=== PATIENT | male | born 1950 | race Caucasian/White ===

== ENCOUNTER 2020-10-10 08:59 | Outpatient (CLI) | payer MEDICARE, SELFPAY | END 2020-10-10 09:00 | disposition home or self-care (01) | DX: Z23 Encounter for immunization (principal) | CPT/HCPCS: 0001A; 91300 ==

== ENCOUNTER 2020-10-31 09:01 | Outpatient (CLI) | payer MEDICARE, SELFPAY | END 2020-10-31 09:02 | disposition home or self-care (01) | LOC: ANHCOVIDVC 09:02 | DX: Z23 Encounter for immunization (principal) | CPT/HCPCS: 0002A; 91300 ==

== ENCOUNTER 2021-09-27 02:17 | Day surgery (SDC) | payer MEDICARE, SELFPAY ==
[2021-09-25 11:51] VITALS: BMI 24.3
[2021-09-27 13:24] VITALS: BP 150/72; PULSE 56; RESP 18; TEMP 37.1; O2SAT 99
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
[2021-09-27] MEDS: LACTATED RINGERS 1,000 ML 150 ML IV CONT (13:34)
--- NOTE | 2021-09-27 13:41 | P.PNAN_ITS ---
Anes - Initial Pre Proc Eval Procedure: Operation Date: 09/27/21 14:00 Proposed Procedures p Esophagogastroduodenoscopy - Leoncio Swartz MD Date/Time: 09/27/21 13:41 Surgeon: Leoncio Swartz MD Pre Op Diagnosis: dysphagia Patient Data Age: 71 Gender: M Height: 1.78 m Weight: 83 kg Last Vital Signs Temp 98.8 F 09/27/21 13:24 Pulse 56 L 09/27/21 13:24 Resp 18 09/27/21 13:24 BP 150/72 H 09/27/21 13:24 Pulse Ox 99 09/27/21 13:24 Allergies Allergy/AdvReac Type Severity Reaction Status Date / Time ximena Allergy Severe Swelling Verified 09/27/21 13:23 of Lip/Tongue/Throat poison enedelia extract Allergy Intermediate Blister Verified 09/27/21 13:23 Home Medications Medication Instructions Recorded Confirmed Type Daily Multiple For Men 1 tab-cap PO DAILY 09/25/21 09/25/21 History acetaminophen [Tylenol] 650 mg PO BID 09/25/21 09/25/21 History amlodipine 5 mg PO BID 09/25/21 09/25/21 History ascorbic acid (vitamin C) 500 mg PO BID 09/25/21 09/25/21 History calcium carbonate-vitamin D3 1 tablet PO DAILY 09/25/21 09/25/21 History [Calcium with Vitamin D] cyanocobalamin (vitamin B-12) 1,000 mcg PO BID 09/25/21 09/25/21 History [Vitamin B-12] magnesium 500 mg PO BID 09/25/21 09/25/21 History saw palmetto 3 cap PO DAILY 09/25/21 09/25/21 History testosterone cypionate 100 mg IM [id number] 09/25/21 09/25/21 History Patient hx anesthesia problems: none Family hx anesthesia problems: none Results Review: All pre-operative results and documents have been reviewed as part of the pre-operative evaluation. [facility] Social History Social History Smoking status: Never smoker Alcohol intake: current Substance use: never Substance use type: does not use Living arrangements: with family Spiritual care concerns: No Anes - Eval Final PreProcedure Day of Procedure 09/27/21 13:41 Patient weight: normal Heart: regular rate and rhythm Lungs: clear to auscultation Airway: Mallampati scale class II Neurological: alert and oriented Last oral intake: >/= 8 hours ASA classification: II Emergent: no Anesthetic plan: proceed Anesthesia type and monitoring: general GIVS and standard monitoring Results Review: All pre-operative results and documents have been reviewed as part of the pre-operative evaluation. Informed Consent: The patient's anesthetic plan and its attendant risks and benefits were discussed with the patient/family/POA. Questions were solicited and answers provided to the satisfaction of the patient/family/POA.
--- NOTE | 2021-09-27 14:02 | SUR.OPER ---
Esophageal Balloon 15-18mm Lot: [id number] Exp: 2023-05-04
[2021-09-27 14:07] VITALS: BP 108/77; PULSE 65; RESP 19; O2SAT 98
[2021-09-27 14:17] VITALS: BP 102/79; PULSE 65; RESP 23; O2SAT 100
[2021-09-27 14:27] VITALS: BP 126/82; PULSE 59; RESP 20; O2SAT 100
== END 2021-09-27 14:48 | disposition home or self-care (01) ==
PROVIDERS: PCP Family Medicine; Visit Provider Internal Medicine Gastroenterology
PROC: 0DJ08ZZ Inspection of Upper Intestinal Tract, Via Natural or Artificial Opening Endoscopic (ICD-10-PCS; CPT 43235; principal; 2021-09-27 14:00)
DX: K22.2 Esophageal obstruction (principal); K21.00 Gastro-esophageal reflux disease with esophagitis, without bleeding; K44.9 Diaphragmatic hernia without obstruction or gangrene
CPT/HCPCS: 43249; 88305; C1726; J2704; J7120

== ENCOUNTER 2021-10-05 14:44 | Outpatient (CLI) | payer OTHER, MEDICARE, SELFPAY ==
--- NOTE | ~2021-10-05 | XR_ITS ---
EXAMINATION: XR cervical spine 4-5V DATE: 10/05/2021 15:12 INDICATION: Neck pain. TECHNIQUE: 4 views of cervical spine were obtained. COMPARISON: None. FINDINGS: There is kyphosis of cervical spine. There is 2 mm retrolisthesis of C3 on C4, C4 on C5, an d C5 on C6. There is 16 degrees levoscoliosis of cervicothoracic spine. Vertebral body heights are no rmal. There is severely decreased disc height from C3-C4 through C6-C7. There is multilevel uncoverte bral joint osteoarthritis, severe on the right at C3-C4 and C4-C5 and bilaterally at C5-C6 and C6-C7. There is multilevel mild facet joint osteoarthritis. There is mild central canal stenosis at C3-C4, C4-C5, C5-C6, and C6-C7. No prevertebral soft tissue swelling. IMPRESSION: 1. Severe cervical spondylosis. 2. Cervicothoracic levoscoliosis. Reviewed, dictated and finalized at location A.
--- NOTE | ~2021-10-05 | XR_ITS ---
EXAMINATION: XR thoracic spine 3V DATE: 10/05/2021 15:12 INDICATION: Back pain. TECHNIQUE: 3 views of thoracic spine were obtained. COMPARISON: None. FINDINGS: There is 11 degrees dextroscoliosis of thoracic spine. Vertebral body heights are normal. I ntervertebral disc heights are normal. There are endplate osteophytes at most levels. IMPRESSION: 1. Mild thoracic spondylosis. 2. Thoracic dextroscoliosis. Reviewed, dictated and finalized at location A.
--- NOTE | ~2021-10-05 | CT_ITS ---
EXAMINATION: CT cervical spine wo con DATE: 10/05/2021 15:18 INDICATION: Neck pain. TECHNIQUE: Computed tomography (CT) of the cervical spine was performed without intravenous contrast. Automated exposure control and iterative reconstruction technique were employed. The dose-length pro duct was 415.07 mGy-cm. COMPARISON: None FINDINGS: There are nodules in the thyroid measuring up to 10 mm, likely not clinically significant. There is 6 degrees levocurvature of cervical spine. There is kyphosis of cervical spine. There is 2 m m retrolisthesis of C4 on C5 and C5-C6 and 2 mm anterolisthesis of C7 on T1. Vertebral body heights a re normal. There is severely decreased disc height from C3-C4 through C6-C7 with endplate remodeling. The following disc levels are specifically discussed: C2-C3: There is mild bilateral uncovertebral joint osteoarthritis. There is moderate right and severe left facet joint osteoarthritis. There is mild left neural foraminal stenosis. There is no central c anal stenosis. C3-C4: There is severe right and moderate left uncovertebral joint osteoarthritis. There is mild bila teral facet joint osteoarthritis. There is moderate right and mild left neural foraminal stenosis. Th ere is mild central canal stenosis. C4-C5: There is severe right and moderate left uncovertebral joint osteoarthritis. There is mild bila teral facet joint osteoarthritis. There is moderate right and mild left neural foraminal stenosis. Th ere is moderate central canal stenosis. C5-C6: There is severe bilateral uncovertebral joint osteoarthritis. There is moderate bilateral face t joint osteoarthritis. There is mild bilateral neural foraminal stenosis. There is moderate central canal stenosis. C6-C7: There is severe bilateral uncovertebral joint osteoarthritis. There is severe bilateral facet joint osteoarthritis. There is mild bilateral neural foraminal stenosis. There is mild central canal stenosis. C7-T1: There is no uncovertebral joint osteoarthritis. There is severe bilateral facet joint osteoart hritis. There is mild bilateral neural foraminal stenosis. There is no central canal stenosis. IMPRESSION: 1. Severe cervical spondylosis. Reviewed, dictated and finalized at location A.
== END 2021-10-05 14:45 | disposition home or self-care (01) ==
PROVIDERS: PCP Family Medicine; Visit Provider Nurse Practitioner Adult Health
DX: M47.892 Other spondylosis, cervical region (principal); M47.894 Other spondylosis, thoracic region
CPT/HCPCS: 72050; 72072; 72125

== ENCOUNTER 2021-12-27 00:41 | Day surgery (SDC) | payer MEDICARE, SELFPAY ==
[2021-12-10 14:12] VITALS: BMI 23.8
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
[2021-12-27 07:06] VITALS: BP 165/75; PULSE 85; RESP 20; TEMP 36.2; O2SAT 99; BMI 25.7
[2021-12-27] MEDS: LACTATED RINGERS 1,000 ML 150 ML IV CONT (07:09)
--- NOTE | 2021-12-27 07:50 | P.PNAN_ITS ---
Anes - Initial Pre Proc Eval Procedure: Operation Date: 12/27/21 08:00 Proposed Procedures p Esophagogastroduodenoscopy - eLoncio Swartz MD Date/Time: 12/27/21 07:50 Surgeon: Leoncio Swartz MD Pre Op Diagnosis: dysphagia Patient Data Age: 71 Gender: M Height: 1.75 m Weight: 79.2 kg Last Vital Signs Temp 97.2 F L 12/27/21 07:06 Pulse 85 12/27/21 07:06 Resp 20 12/27/21 07:06 BP 165/75 H 12/27/21 07:06 Pulse Ox 99 12/27/21 07:06 O2 Del Method Room Air 12/27/21 07:06 Allergies Allergy/AdvReac Type Severity Reaction Status Date / Time ximena Allergy Severe Swelling Verified 12/27/21 07:01 of Lip/Tongue/Throat poison enedelia extract Allergy Intermediate Blister Verified 12/27/21 07:01 Home Medications Medication Instructions Recorded Confirmed Type Daily Multiple For Men 1 tab-cap PO DAILY 09/25/21 12/10/21 History ascorbic acid (vitamin C) 500 mg 500 mg PO BID 09/25/21 12/10/21 History capsule calcium carbonate 600 mg-vitamin 1 tablet PO DAILY 09/25/21 12/10/21 History D3 10 mcg (400 unit) tablet (Calcium with Vitamin D) cyanocobalamin (vitamin B-12) 1,000 mcg PO BID 09/25/21 12/10/21 History 1,000 mcg tablet (Vitamin B-12) magnesium 500 mg tablet 500 mg PO BID 09/25/21 12/10/21 History pantoprazole 40 mg tablet,delayed 40 mg PO QAM #30 tabs 09/27/21 12/10/21 Rx release Patient hx anesthesia problems: none Family hx anesthesia problems: none Results Review: All pre-operative results and documents have been reviewed as part of the pre-operative evaluation. [facility] Social History Social History Smoking status: Never smoker Alcohol intake: former Substance use: never Substance use type: does not use Living arrangements: with family Spiritual care concerns: No Anes - Eval Final PreProcedure Day of Procedure 12/27/21 07:50 Patient weight: normal Heart: regular rate and rhythm Lungs: clear to auscultation Airway: Mallampati scale class II Neurological: alert and oriented Last oral intake: >/= 8 hours ASA classification: II Emergent: no Anesthetic plan: proceed Anesthesia type and monitoring: general GIVS and standard monitoring Results Review: All pre-operative results and documents have been reviewed as part of the pre- operative evaluation. Informed Consent: The patient's anesthetic plan and its attendant risks and benefits were discussed with the patient/family/POA. Questions were solicited and answers provided to the satisfaction of the patient/family/POA.
[2021-12-27 08:03] VITALS: BP 101/72; PULSE 63; RESP 16; O2SAT 100
[2021-12-27 08:13] VITALS: BP 101/56; PULSE 59; RESP 18; O2SAT 97
[2021-12-27 08:23] VITALS: BP 101/66; PULSE 61; RESP 16; O2SAT 97
== END 2021-12-27 08:58 | disposition home or self-care (01) ==
PROVIDERS: PCP Family Medicine; Visit Provider Internal Medicine Gastroenterology
PROC: 0DJ08ZZ Inspection of Upper Intestinal Tract, Via Natural or Artificial Opening Endoscopic (ICD-10-PCS; CPT 43235; principal; 2021-12-27 08:00)
DX: K22.2 Esophageal obstruction (principal); K44.9 Diaphragmatic hernia without obstruction or gangrene
CPT/HCPCS: 43249; J2001; J2704; J7120

== ENCOUNTER 2022-03-19 10:16 | Outpatient (CLI) | payer MEDICARE, SELFPAY ==
--- NOTE | 2022-03-19 10:59 | ECG_ITS ---
Measurements Intervals [place] Rate: 56 P: 33 KS: 180 QRS: 35 QRSD: 123 T: 14 QT: 402 QTc: 390 Interpretive Statements SINUS BRADYCARDIA WITH MARKED SINUS ARRHYTHMIA INTRAVENTRICULAR CONDUCTION DELAY VOLTAGE CRITERIA FOR LVH PEAKED T WAVES- CONSIDER HYPERKALEMIA BASELINE ARTIFACT- I, III, AVL ABNORMAL ECG NO PREVIOUS ECG AVAILABLE FOR COMPARISON Electronically Signed On 03-19-2022 11:51:30 CDT by Quinton Escobedo D.O.
== END 2022-03-19 10:17 | disposition home or self-care (01) ==
PROVIDERS: PCP Family Medicine; Visit Provider Nurse Practitioner Adult Health
DX: R00.8 Other abnormalities of heart beat (principal); I45.9 Conduction disorder, unspecified
CPT/HCPCS: 93005

== ENCOUNTER 2022-10-15 07:36 | Outpatient (CLI) | payer MEDICARE, SELFPAY ==
[2022-10-15 08:20] LABS: Basophils Percent Auto 0.4 % (0.2-1.2); Eosinophils Percent Auto 0.1 % (0-4.4); Hematocrit 55.4 % (42.0-52.0); Immature Granulocyte Absolute 0.05 K/mm3 (0.00-0.031); Immature Granulocyte Percent A 0.5 % (0-0.5); Lymphocytes Absolute Auto 1.51 K/mm3 (0.9-3.2); Lymphocytes Percent Auto 13.9 % (18.3-44.2); Mean Corpuscular HGB Conc 32.5 g/dl (32-36); Mean Corpuscular Hemoglobin 28.4 pg (26-34); Mean Corpuscular Volume 87.4 fl (80-100); Mean Platelet Volume 9.5 fl (7.4-10.4); Monocytes Absolute Auto 0.8 K/mm3 (0.1-0.6); Monocytes Percent Auto 6.9 % (2.6-8.5); Neutrophils Absolute Auto 8.5 K/mm3 (1.3-6.7); Neutrophils Percent Auto 78.2 % (45.5-73.1); Platelet Count Result 256 k/mm3 (150-375); Red Blood Count 6.34 M/mm3 (4.6-6.20); Red Cell Distribution Width 16.1 % (11.5-14.5); White Blood Count 10.9 K/mm3 (4.5-10.0)
[2022-10-15 08:32] LABS: Alanine Aminotransferase 25 U/L (6-50); Albumin Level 4.3 g/dL (3.5-5.1); Alkaline Phosphatase 52 U/L (38-126); Anion Gap 6 mmol/L (8-16); Aspartate Amino Transferase 26 U/L (17-59); Blood Urea Nitrogen 22 mg/dL (9-20); Calcium 8.6 mg/dL (8.4-10.2); Carbon Dioxide 31 mmol/L (22-30); Chloride 100 mmol/L (98-107); Cholesterol 127 mg/dL (0-200); Estimated Glomerular Filt Rate > 60; Glucose 102 mg/dL (65-110); HDL Direct 27 mg/dL; Sodium 137 mmol/L (137-145); Triglycerides 129 mg/dL (<150)
[2022-10-15 08:44] LABS: LDL Cholesterol Direct 82 mg/dL
[2022-10-15 09:01] LABS: Thyroid Stimulating Hormone 0.796 uIU/mL (0.465-4.680); Total Triiodothyronine (T3) 1.33 NG/ML (0.97-1.69)
[2022-10-15 09:14] LABS: Free T4 Free Thyroxine 0.95 ng/mL (0.78-2.19)
[2022-10-18 04:57] LABS: FSH <0.7 mIU/mL (1.6-8.0); LH <0.2 mIU/mL (1.6-15.2); Prolactin 9.5 ng/mL (***)
[2022-10-18 12:25] LABS: Sex Hormone Binding Globulin 26 nmol/L (22-77)
[2022-10-20 17:06] LABS: Testosterone Total 893 ng/dL (250-1100)
[2022-10-23 21:56] LABS: Estradiol, Ultrasensitive 64 pg/mL (< OR = 29)
== END 2022-10-15 07:37 | disposition home or self-care (01) ==
PROVIDERS: PCP Family Medicine; Visit Provider Family Medicine
DX: E29.1 Testicular hypofunction (principal); R53.1 Weakness; N52.9 Male erectile dysfunction, unspecified
CPT/HCPCS: 36415; 80053; 80061; 82670; 83001; 83002; 84146; 84270; 84402; 84403; 84439; 84443; 84480; 85025

== ENCOUNTER 2023-04-29 09:35 | Outpatient (CLI) | payer MEDICARE, SELFPAY ==
[2023-04-29 11:16] LABS: Basophils Percent Auto 0.5 % (0.2-1.2); Hematocrit 52.5 % (42.0-52.0); Hemoglobin 17.1 g/dL (14.0-18.0); Immature Granulocyte Absolute 0.06 K/mm3 (0.00-0.031); Immature Granulocyte Percent A 0.7 % (0-0.5); Lymphocytes Percent Auto 12.5 % (18.3-44.2); Mean Corpuscular HGB Conc 32.6 g/dl (32-36); Mean Corpuscular Hemoglobin 29.1 pg (26-34); Mean Corpuscular Volume 89.3 fl (80-100); Mean Platelet Volume 9.7 fl (7.4-10.4); Monocytes Absolute Auto 0.6 K/mm3 (0.1-0.6); Monocytes Percent Auto 6.4 % (2.6-8.5); Neutrophils Absolute Auto 7.1 K/mm3 (1.3-6.7); Neutrophils Percent Auto 79.9 % (45.5-73.1); Platelet Count Result 326 k/mm3 (150-375); Red Blood Count 5.88 M/mm3 (4.6-6.20); Red Cell Distribution Width 13.5 % (11.5-14.5); White Blood Count 8.8 K/mm3 (4.5-10.0)
[2023-04-29 11:30] LABS: Alanine Aminotransferase 23 U/L (6-50); Albumin Level 4.4 g/dL (3.5-5.1); Alkaline Phosphatase 51 U/L (38-126); Anion Gap 9 mmol/L (8-16); Aspartate Amino Transferase 26 U/L (17-59); Bilirubin,Total 0.7 mg/dL (0.2-1.3); Blood Urea Nitrogen 26 mg/dL (9-20); Calcium 9.6 mg/dL (8.4-10.2); Carbon Dioxide 26 mmol/L (22-30); Chloride 103 mmol/L (98-107); Cholesterol 131 mg/dL (0-200); Estimated Glomerular Filt Rate > 60; Glucose 111 mg/dL (65-110); HDL Direct 29 mg/dL; Potassium 4.2 mmol/L (3.4-5.0); Sodium 138 mmol/L (137-145); Triglycerides 78 mg/dL (<150)
[2023-04-29 11:56] LABS: Free T4 Free Thyroxine 1.08 ng/mL (0.78-2.19)
[2023-04-29 11:57] LABS: LDL Cholesterol Direct 80 mg/dL
[2023-04-29 12:31] LABS: Thyroid Stimulating Hormone 0.547 uIU/mL (0.465-4.680); Total Triiodothyronine (T3) 1.43 NG/ML (0.97-1.69)
[2023-05-02 00:08] LABS: Testosterone Free 52.5 pg/mL (6.0-73.0); Testosterone Total 312 ng/dL (250-1100)
[2023-05-03 09:55] LABS: FSH <0.7 mIU/mL (1.6-8.0); LH <0.2 mIU/mL (1.6-15.2)
[2023-05-08 23:15] LABS: Estradiol, Ultrasensitive 19 pg/mL (< OR = 29)
== END 2023-04-29 09:36 | disposition home or self-care (01) ==
PROVIDERS: PCP Family Medicine; Visit Provider Family Medicine
DX: E29.1 Testicular hypofunction (principal); N52.9 Male erectile dysfunction, unspecified; R97.20 Elevated prostate specific antigen [PSA]; R53.83 Other fatigue; I10 Essential (primary) hypertension
CPT/HCPCS: 36415; 80053; 80061; 82670; 83001; 83002; 84402; 84403; 84439; 84443; 84480; 85025

== ENCOUNTER 2023-11-03 08:46 | Outpatient (CLI) | payer MEDICARE, SELFPAY ==
[2023-11-03 09:53] LABS: Basophils Percent Auto 0.4 % (0.2-1.2); Hematocrit 53.7 % (42.0-52.0); Hemoglobin 17.7 g/dL (14.0-18.0); Immature Granulocyte Absolute 0.06 K/mm3 (0.00-0.031); Immature Granulocyte Percent A 0.6 % (0-0.5); Lymphocytes Absolute Auto 1.33 K/mm3 (0.9-3.2); Lymphocytes Percent Auto 13.1 % (18.3-44.2); Mean Corpuscular Volume 87.9 fl (80-100); Mean Platelet Volume 9.9 fl (7.4-10.4); Monocytes Absolute Auto 0.8 K/mm3 (0.1-0.6); Monocytes Percent Auto 7.4 % (2.6-8.5); Neutrophils Percent Auto 78.5 % (45.5-73.1); Platelet Count Result 243 k/mm3 (150-375); Red Blood Count 6.11 M/mm3 (4.6-6.20); Red Cell Distribution Width 14.8 % (11.5-14.5); White Blood Count 10.1 K/mm3 (4.5-10.0)
[2023-11-03 09:55] LABS: Hemoglobin A1C 5.4 % (<5.7)
[2023-11-03 09:56] LABS: Alanine Aminotransferase 17 U/L (6-50); Albumin Level 4.4 g/dL (3.5-5.1); Alkaline Phosphatase 60 U/L (38-126); Anion Gap 7 mmol/L (4-12); Aspartate Amino Transferase 20 U/L (17-59); Bilirubin,Total 0.9 mg/dL (0.2-1.3); Blood Urea Nitrogen 23 mg/dL (9-20); Calcium 9.8 mg/dL (8.4-10.2); Carbon Dioxide 28 mmol/L (22-30); Chloride 104 mmol/L (98-107); Cholesterol 126 mg/dL (0-200); Estimated Glomerular Filt Rate > 60; Glucose 101 mg/dL (65-110); HDL Direct 32 mg/dL; Potassium 3.9 mmol/L (3.4-5.0); Sodium 139 mmol/L (137-145); Triglycerides 127 mg/dL (<150)
[2023-11-03 10:07] LABS: LDL Cholesterol Direct 89 mg/dL
[2023-11-03 11:27] LABS: Prostate Specific Antigen 4.8 ng/mL (< OR = 4.0)
[2023-11-07 19:04] LABS: Testosterone Free 123.9 pg/mL (30.0-135.0); Testosterone Total 634 ng/dL (250-1100)
[2023-11-10 02:18] LABS: Estradiol, Ultrasensitive 64 pg/mL (< OR = 29)
== END 2023-11-03 08:47 | disposition home or self-care (01) ==
LOC: ANHLAB 08:48
PROVIDERS: PCP Family Medicine; Visit Provider Registered Nurse
DX: N52.9 Male erectile dysfunction, unspecified (principal); R53.1 Weakness; R53.83 Other fatigue; Z12.5 Encounter for screening for malignant neoplasm of prostate; E29.1 Testicular hypofunction; E11.9 Type 2 diabetes mellitus without complications
CPT/HCPCS: 36415; 80053; 80061; 82670; 83036; 84153; 84402; 84403; 85025; G0103

== ENCOUNTER 2023-12-31 09:46 | Outpatient (CLI) | payer MEDICARE, SELFPAY ==
--- NOTE | ~2023-12-31 | XR_ITS ---
Right Shoulder Technique: AP and scapular Y views were obtained. Clinical History: Pain Findings: No fracture or dislocation is seen. There is high riding humeral head. There is severe dege nerative changes glenohumeral joint. There is moderate AC joint degenerative change. Probable intra-a rticular loose bodies at the subscapularis recess. Soft tissues are unremarkable. Impression: High riding humeral head suggests underlying full-thickness rotator cuff tear. Advanced glenohumeral joint degenerative change and moderate AC joint degenerative change. Probable intra-articular loose bodies in the subscapularis recess. Reviewed, dictated and finalized at location . Impression: High riding humeral head suggests underlying full-thickness rotator cuff tear. Advanced glenohumeral joint degenerative change and moderate AC joint degenerat belkis change. Probable intra-articular loose bodies in the subscapularis recess.
== END 2023-12-31 09:47 | disposition home or self-care (01) ==
LOC: ANHIMG 09:52
PROVIDERS: PCP Family Medicine; Visit Provider Registered Nurse
DX: M25.511 Pain in right shoulder (principal); M19.011 Primary osteoarthritis, right shoulder
CPT/HCPCS: 73030

== ENCOUNTER 2024-03-29 08:00 | Outpatient (RCR) | payer MEDICARE, SELFPAY ==
--- NOTE | 2024-02-27 10:13 | OPREHPOC ---
Outpatient Therapy Plan of Care This is a Multidisciplinary Plan of Care that may contain components documented by all disciplines (PT, OT, and ST.) PT Problem 1 PT Problem #1 Knowledge Deficit PT Goal 1 Goal / Goal Update Pt to be IND with issued HEP Target Visit 8 PT Problem 2 PT Problem #2 Impaired Range of Motion PT Goal 1 Goal / Goal Update Pt to improve passive knee extension ROM to no more than 5 deg herminio. Target Visit 8 PT Problem 3 PT Problem #3 Impaired Strength PT Goal 1 Goal / Goal Update Pt to improve 5xSTS time from 26s to 20s. Target Visit 8 PT Problem 4 PT Problem #4 Impaired Gait PT Goal 1 Goal / Goal Update Pt to improve 2 min walk distance from 210ft to 300ft. Target Visit 8
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
--- NOTE | 2024-03-11 08:27 | PCPTNOTE ---
Patient no showed to appointment this date. Patient was then called and states he thought his appointment was at 8:45. Therapist offered a 9:00 appointment however patient decided to cancel stating he was hurting from an event recently. Patient called back to state he was unhappy about the evaluation he had and the fact that he does not get reminder calls about appointments.
--- NOTE | 2024-03-29 08:55 | PTOPDC ---
Assessment and note entered by Sharon Tucker, PT, DPT Evaluation Information Assessment Status Discharge Diagnosis R shoulder dysfunction, herminio knee pain ICD-10 Condition Codes (PT) M25.511,M25.561,Pain in left knee M25.562, Difficulty Walking R26.2,R26.9,Weakness R53.1 Subjective Information Pt states he feels like he is walking much better than when he started therapy. He states he does not do his exercises at home. He states he has not seen any strength gains it his shoulder, he states his deficits have become evident with things we ask him to do in therapy. He plans to get a knee replacement in May. Reported Pain Level Pain Score 0: Self Report Assessment PT Clinical Summary Pt has completed 7 visits of skilled therapy to treat his herminio knee and R shoulder pain. Today he continues to demonstrates good LE strength but is still missing significant terminal knee extension herminio. His gait speed has improved but still has significant gait deviations. His HEP was progressed and he plans to continue this until his surgery in May. He will be d/c'ed at this time. Plan of Care PT Services Indicated No
== END 2024-03-29 09:25 | disposition home or self-care (01) ==
LOC: ANHGOSHPT 08:00
PROVIDERS: PCP Family Medicine; Visit Provider Orthopaedic Surgery
DX: M12.811 Other specific arthropathies, not elsewhere classified, right shoulder (principal)
CPT/HCPCS: 97014; 97110; 97161; 97530; G0283

== ENCOUNTER 2024-05-10 10:20 | Outpatient (CLI) | payer MEDICARE, SELFPAY ==
[2024-05-10 10:51] LABS: Basophils Absolute Auto 0.1 K/mm3 (0.0-0.1); Basophils Percent Auto 0.6 % (0.2-1.2); Eosinophils Absolute Auto 0.3 K/mm3 (0-0.3); Eosinophils Percent Auto 2.9 % (0-4.4); Hematocrit 50.8 % (42.0-52.0); Immature Granulocyte Absolute 0.07 K/mm3 (0.00-0.031); Immature Granulocyte Percent A 0.7 % (0-0.5); Lymphocytes Absolute Auto 1.47 K/mm3 (0.9-3.2); Lymphocytes Percent Auto 15.4 % (18.3-44.2); Mean Corpuscular HGB Conc 33.5 g/dl (32-36); Mean Corpuscular Hemoglobin 29.4 pg (26-34); Mean Corpuscular Volume 87.9 fl (80-100); Mean Platelet Volume 9.3 fl (7.4-10.4); Monocytes Absolute Auto 0.8 K/mm3 (0.1-0.6); Monocytes Percent Auto 7.9 % (2.6-8.5); Neutrophils Absolute Auto 6.9 K/mm3 (1.3-6.7); Neutrophils Percent Auto 72.5 % (45.5-73.1); Platelet Count Result 252 k/mm3 (150-375); Red Blood Count 5.78 M/mm3 (4.6-6.20); Red Cell Distribution Width 13.5 % (11.5-14.5); White Blood Count 9.5 K/mm3 (4.5-10.0)
[2024-05-10 15:44] LABS: Alanine Aminotransferase 19 U/L (6-50); Albumin Level 4.4 g/dL (3.5-5.1); Alkaline Phosphatase 52 U/L (38-126); Anion Gap 7 mmol/L (4-12); Aspartate Amino Transferase 44 U/L (17-59); Bilirubin,Total 0.7 mg/dL (0.2-1.3); Blood Urea Nitrogen 30 mg/dL (9-20); Calcium 9.7 mg/dL (8.4-10.2); Carbon Dioxide 32 mmol/L (22-30); Chloride 98 mmol/L (98-107); Cholesterol 137 mg/dL (0-200); Estimated Glomerular Filt Rate > 60; Glucose 97 mg/dL (65-110); HDL Direct 34 mg/dL; Potassium 3.9 mmol/L (3.4-5.0); Sodium 137 mmol/L (137-145); Triglycerides 70 mg/dL (<150)
[2024-05-10 15:54] LABS: LDL Cholesterol Direct 83 mg/dL
[2024-05-10 22:53] LABS: Hemoglobin A1C 5.7 % (<5.7)
== END 2024-05-10 10:21 | disposition home or self-care (01) ==
PROVIDERS: PCP Family Medicine; Visit Provider Registered Nurse
DX: R97.20 Elevated prostate specific antigen [PSA] (principal); I10 Essential (primary) hypertension; N52.9 Male erectile dysfunction, unspecified; R53.1 Weakness; R53.83 Other fatigue; E29.1 Testicular hypofunction; E11.9 Type 2 diabetes mellitus without complications; Z12.5 Encounter for screening for malignant neoplasm of prostate
CPT/HCPCS: 36415; 80053; 80061; 83036; 84153; 84402; 84403; 85025

== ENCOUNTER 2024-05-26 08:30 | Outpatient (CLI) | payer MEDICARE, SELFPAY ==
--- NOTE | ~2024-05-26 | NM_ITS ---
EXAMINATION: NM suzie stress w perfusion DATE: 05/26/2024 10:59 INDICATION: Abnormal electrocardiogram. Encounter for preprocedural cardiovascular exam. TECHNIQUE: Rest images were obtained following intravenous administration of 9.4 mCi Tc99m tetrofosmi n (Myoview). The patient was infused intravenously with Lexiscan (regadenoson). Then, 30.9 mCi Tc99m tetrofosmin (Myoview) was administered intravenously, and stress images were obtained. Data was recon structed into short axis and horizontal and vertical long axis SPECT images. Gated SPECT images were also obtained. COMPARISON: None. FINDINGS: There is no definite reversible or fixed perfusion abnormality to suggest ischemia or infar ction. There is no segmental wall motion abnormality. Left ventricular ejection fraction measures 6 8%. IMPRESSION: 1. No definite ischemia or infarct. 2. Normal left ventricular ejection fraction measuring 68%. Reviewed, dictated and finalized at location A. L OR [employer]
--- NOTE | 2024-05-26 08:36 | EST_ITS ---
Patient Info Name: Roberto Norwood Age: 74 years : 1950 Gender: Male Ht: 69 in Wt: 170 lbs BSA: 1.95 m2 HR: 60 bpm BP: 155 / 93 mmHg Exam Date: 05/26/2024 9:36 AM Exam Location: [facility] Patient Status: Outpatient Admit Date: 05/26/2024 Staff Ordering Physician: Quinton Escobedo DO Attending Provider: Quinton Escobedo DO Exercise Physician: Quinton Escobedo DO Exam Type: CA stress suzie w NM Study Info A regadenoson stress test was performed. Summary 1. 1. Negative lexiscan stress test for ischemic ST changes by ECG criteria. 2. 2. Baseline hypertension. 3. 3. Nuclear scan to follow and will be reported separately. Please correlate with it. 4. 4. Patient informed of the above results. Protocol: Lexiscan Stress ECG Details Stage: REST Duration (min): 1 min : 1 sec HR (bpm): 65 SBP (mmHg): 155 DBP (mmHg): 93 Stage: REST Duration (min): 4 min : 4 sec HR (bpm): 62 SBP (mmHg): 155 DBP (mmHg): 93 Stage: STAGE 1 Duration (min): 1 min : 0 sec HR (bpm): 73 SBP (mmHg): 141 DBP (mmHg): 92 Stage: RECOVERY Duration (min): 1 min : 0 sec HR (bpm): 75 SBP (mmHg): 141 DBP (mmHg): 92 Stage: RECOVERY Duration (min): 2 min : 0 sec HR (bpm): 74 SBP (mmHg): 141 DBP (mmHg): 92 Stage: RECOVERY Duration (min): 3 min : 0 sec HR (bpm): 73 SBP (mmHg): 137 DBP (mmHg): 82 Stage: RECOVERY Duration (min): 3 min : 7 sec HR (bpm): 76 SBP (mmHg): 137 DBP (mmHg): 82 Rest HR: 62 bpm Peak HR: 80 bpm Rest Sys BP: 155 mmHg Peak Sys BP: 141 mmHg Max Pred HR: 146 bpm % Max Pred HR: 55 % Target HR: 124 bpm Max RPP: 11,280 bpm*mmHg Termination Reason: Completed protocol Cardiac Symptoms: Shortness of breath Total Time: 1 min : 0 sec Rest Brown BP: 93 mmHg Peak Brown BP: 92 mmHg Total Dose: 0.4 mg Resting ECG Sinus rhythm. Stress ECG No ST changes. Arrhythmias None. Report Signatures
== END 2024-05-26 08:31 | disposition home or self-care (01) ==
PROVIDERS: PCP Family Medicine; Visit Provider Internal Medicine Cardiovascular Disease
DX: Z01.810 Encounter for preprocedural cardiovascular examination (principal); I10 Essential (primary) hypertension
CPT/HCPCS: 78452; 93017; A9502; J2785

== ENCOUNTER 2024-06-04 08:00 | Outpatient (CLI) | payer MEDICARE, SELFPAY ==
[2024-06-04 10:31] LABS: Urine Cotinine NEGATIVE
== END 2024-06-04 08:01 | disposition home or self-care (01) ==
PROVIDERS: PCP Family Medicine; Visit Provider Orthopaedic Surgery
DX: Z01.818 Encounter for other preprocedural examination (principal); M17.11 Unilateral primary osteoarthritis, right knee
CPT/HCPCS: 80307; 87081; 87181

== ENCOUNTER 2024-06-24 12:27 | Inpatient (IN) | payer MEDICARE, SELFPAY ==
--- NOTE | 2024-06-04 07:45 | PC.NURSE ---
Report to the Outpatient Waiting Room, entrance under the green pavilion located off [facility], at time _9:30 AM on date _06/24/24 . Planned Procedure Time: _11:30 AM .? Time changes happen often and if your time is changed the preop area will call you the afternoon before. - You and your visitor will be asked to self-screen and do not enter if you have any COVID symptoms. Please call surgeon if you need to reschedule. - A mask is optional within the hospital at this time. Patients may have clear liquids (water, carbonated beverages, clear teas, apple juice) until 3 hours prior to surgery( 8:30 AM) with a maximum of 20 ounces. - No food from midnight until time of surgery and no smoking. This includes no chewing gum, candy or mints. - Take only the following medications with a SIP of water on the morning of surgery: _AMLODIPINE, DO NOT STOP ANY OF YOUR OTHER PRESCRIPTION MEDICATIONS PRIOR TO SURGERY EXCEPT THE FOLLOWING Medications to discontinue per physician __HOLD ALL VITAMINS AND SUPPLEMENTS 3 DAYS PRE OP PER ANESTHESIA_LAST DOSE 06/20/24. HOLD MELOXICAM 7 DAYS PRE OP PER DR WHALEY.LAST DOSE 06/16/24 Please no make-up, nail icelandic, hairspray, perfume, deodorant, or body powder the day of surgery.? No jewelry (including any body piercings) or valuables the day of surgery, leave them at home.? Please take a shower or bath the night before, or the morning of, surgery with an antibacterial soap.? Wear comfortable, loose fitting clothing.? Children are encouraged to wear pajamas. - Jewelry must be removed prior to entering the operating room.? Rings and piercings that are not removed may be cut off. - The hospital will not accept responsibility for valuables.? - Please leave all valuables, including medications, at home the day of surgery. If you are going home after surgery, a licensed racecar driver must drive you home.? - NO public transportation without another adult if you receive anesthesia. - We recommend that an adult stay with you for 24 hours following discharge. - We also recommend that you do not drive, make important decision, drink alcoholic beverages, or take any drugs that were not prescribed by your health care provider for at least 24 hours after your discharge time. Follow any additional instructions given to you from your surgeon. VERBAL AND WRITTEN instructions given to _PATIENT and asked if any additional questions and then verbalized understanding. Patient advised to call surgeon office or pre surgery nurse liaison [phone] if any additional questions.
[2024-06-04 08:12] VITALS: BMI 26.2
[2024-06-04 09:07] VITALS: BP 140/75; PULSE 64; RESP 18; TEMP 37.3; O2SAT 100
--- NOTE | 2024-06-21 08:27 | P.HP_ITS ---
H&P: HPI History of Present Illness Date/Time: 06/21/24 08:27 Chief Complaint: DJD bilateral knees Narrative: 74-year-old male patient of Dr. Jennings who presents today for a right total knee arthroplasty with cortisone injection in the left knee. Patient has been having symptoms in both of his knees for years. He has had cortisone injections in his knees last ones were March 19, they only offer him a brief amount of improvement of his symptoms. He has been on meloxicam 15 mg daily for years. He has severe bicompartmental osteoarthritis in the right knee and severe medial compartment osteoarthritis in the left. At this point he is having rather severe symptoms on a daily basis particularly in the right knee. He feels this point is ready proceed with right total knee arthroplasty. The time surgery will also give him a cortisone injection in the left knee to help with symptoms while he is recovering from the right. Review of Systems Review of Systems: All systems reviewed & are unremarkable except as noted in HPI and below PMFSH Past Medical History Medical History Hypertension Surgical History Surgical History History of tonsillectomy History of hand surgery Family History Family History Other Diabetes mellitus Social History Social History (Updated 06/02/24 @ 07:40 by Mildred Sargent CMA) Smoking status: Never smoker Second hand tobacco smoke exposure: No Additional smoking assessment comments: DENIES ANY FORM OF TOBACCO USE Alcohol intake: former Substance use: never Substance use type: does not use Do You Feel Safe in your Home?: Yes Lack of Transportation: No Lack of Food: Never True Current Housing: I Have Housing Concerned About Future Housing: No Difficulty Paying Gas/Electric Bills: No Difficulty Paying for Meds: No Currently Unemployed: No Education: High School Diploma/GED Difficulty w/ Childcare or Family Care: No Living arrangements: with family Occupation/Education: occupation 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 Gender identity (if verbalized by the patient): Male Spiritual care concerns: No Meds Home Medications and Allergies Home Medications ?Medication ?Instructions ?Recorded ?Confirmed ?Type Daily Multiple For Men 1 tab-cap PO DAILY 09/25/21 06/04/24 History ascorbic acid (vitamin C) 500 mg 500 mg PO BID 09/25/21 06/04/24 History capsule calcium 600 mg (as 1 tablet PO DAILY 09/25/21 06/04/24 History carbonate)-vitamin D3 10 mcg (400 unit) tablet (Calcium with Vitamin D) cyanocobalamin (vitamin B-12) 1,000 mcg PO BID 09/25/21 06/04/24 History 1,000 mcg tablet (Vitamin B-12) magnesium 500 mg tablet 500 mg PO BID 09/25/21 06/04/24 History amlodipine 10 mg tablet 10 mg PO DAILY 02/13/24 06/04/24 History hydrochlorothiazide 25 mg tablet 25 mg PO DAILY 02/13/24 06/04/24 History meloxicam 15 mg tablet 15 mg PO DAILY 02/13/24 06/04/24 History omega-3 fatty acids 500 mg capsule 500 mg PO DAILY 03/19/24 06/04/24 History tadalafil 20 mg tablet 20 mg PO DAILY 03/19/24 06/04/24 History testosterone cypionate 200 mg/mL 80 mg IM 2XW 03/19/24 06/04/24 History intramuscular oil TUMERIC 500 mg PO BID 06/04/24 06/04/24 History famotidine 40 mg tablet 40 mg PO DAILY 06/04/24 06/04/24 History mupirocin 2 % topical ointment 1 applic topical BID #22 grams 06/07/24 Rx Allergies Allergy/AdvReac Type Severity Reaction Status Date / Time ximena Allergy Severe Swelling Verified 06/04/24 08:14 of Lip/Tongue/Throat poison enedelia extract Allergy Intermediate Blister Verified 06/04/24 08:14 Exam Narrative: 74-year-old male alert pleasant. He is 5 ft 7 and 187 lb BMI is 29.2. Right knee range of motion is from 10-100 degrees. Normal stability in the knee. Moderate effusion. Hip range of motion is full without discomfort, negative Stinchfield maneuver. He has normal quad strength. Normal sensation right lower extremity. There is no swelling in either lower extremity. 2+ dorsalis pedis and posterior tibial artery pulse palpable. Walks with a mild limp. Resp: Auscultation: clear to auscultation bilaterally Cardio: Rate: regular rate Rhythm: regular rhythm Assessment and Plan Assessment and plan (1) Primary localized osteoarthritis of both knees: Code(s): M17.0 - Bilateral primary osteoarthritis of knee Status: Acute Plan 74-year-old male who has severe osteoarthritis in both knees with the right being more symptomatic than the left. Nonsurgical treatment is not giving him significant benefit any feels he is ready proceed with total knee arthroplasty. Surgical procedures well as the risks and complications were discussed in detail all questions were answered and we will proceed. Patient will see his primary care doctor for pre-surgical clearance. He has seen cardiology and underwent stress test. There were no abnormalities seen on the stress test and ejection fraction was 60%. Patient's hemoglobin is 17.0 platelets were 252. Creatinine is 0.80. Nasal swab did grow oxacillin sensitive Staph aureus and he has been decolonizing.
--- NOTE | 2024-06-24 09:30 | WPDANESEPPF ---
Anes - Initial Pre Proc Eval Procedure: Operation Date: 06/24/24 11:30 Proposed Procedures p Right Total Knee Arthroplasty, Left Knee Cortisone Injection - Gary Nava MD Date/Time: 06/24/24 09:30 Surgeon: Gary Nava MD Pre Op Diagnosis: Rt Knee O A Patient Data Age: 74 Gender: M Height: 1.78 m Weight: 82.9 kg Last Vital Signs Temp 99.1 F 06/04/24 09:07 Pulse 64 06/04/24 09:07 Resp 18 06/04/24 09:07 BP 140/75 06/04/24 09:07 Pulse Ox 100 06/04/24 09:07 O2 Del Method Room Air 06/04/24 09:07 Allergies Allergy/AdvReac Type Severity Reaction Status Date / Time ximena Allergy Severe Swelling Verified 06/04/24 08:14 of Lip/Tongue/Throat poison enedelia extract Allergy Intermediate Blister Verified 06/04/24 08:14 Home Medications ?Medication ?Instructions ?Recorded ?Confirmed ?Type Daily Multiple For Men 1 tab-cap PO DAILY 09/25/21 06/04/24 History ascorbic acid (vitamin C) 500 mg 500 mg PO BID 09/25/21 06/04/24 History capsule calcium 600 mg (as 1 tablet PO DAILY 09/25/21 06/04/24 History carbonate)-vitamin D3 10 mcg (400 unit) tablet (Calcium with Vitamin D) cyanocobalamin (vitamin B-12) 1,000 mcg PO BID 09/25/21 06/04/24 History 1,000 mcg tablet (Vitamin B-12) magnesium 500 mg tablet 500 mg PO BID 09/25/21 06/04/24 History amlodipine 10 mg tablet 10 mg PO DAILY 02/13/24 06/04/24 History hydrochlorothiazide 25 mg tablet 25 mg PO DAILY 02/13/24 06/04/24 History meloxicam 15 mg tablet 15 mg PO DAILY 02/13/24 06/04/24 History omega-3 fatty acids 500 mg capsule 500 mg PO DAILY 03/19/24 06/04/24 History tadalafil 20 mg tablet 20 mg PO DAILY 03/19/24 06/04/24 History testosterone cypionate 200 mg/mL 80 mg IM 2XW 03/19/24 06/04/24 History intramuscular oil TUMERIC 500 mg PO BID 06/04/24 06/04/24 History famotidine 40 mg tablet 40 mg PO DAILY 06/04/24 06/04/24 History mupirocin 2 % topical ointment 1 applic topical BID #22 grams 06/07/24 Rx Results Review: All pre-operative results and documents have been reviewed as part of the pre-operative evaluation. PMFSH Past Medical History Medical History Hypertension Surgical History Surgical History History of tonsillectomy History of hand surgery Family History Family History Other Diabetes mellitus Social History Social History (Updated 06/02/24 @ 07:40 by Mildred Sargent CMA) Smoking status: Former smoker Second hand tobacco smoke exposure: No Additional smoking assessment comments: DENIES ANY FORM OF TOBACCO USE Alcohol intake: former Substance use: never Substance use type: does not use Do You Feel Safe in your Home?: Yes Lack of Transportation: No Lack of Food: Never True Current Housing: I Have Housing Concerned About Future Housing: No Difficulty Paying Gas/Electric Bills: No Difficulty Paying for Meds: No Currently Unemployed: No Education: High School Diploma/GED Difficulty w/ Childcare or Family Care: No Living arrangements: with family Occupation/Education: occupation 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 Informed Consent: The patient's anesthetic plan and its attendant risks and benefits were discussed with the patient/family/POA. Questions were solicited and answers provided to the satisfaction of the patient/family/POA.
[2024-06-24 09:53] VITALS: BP 108/67; PULSE 75; RESP 18; TEMP 36.5; O2SAT 98
[2024-06-24] MEDS: LACTATED RINGERS 1,000 ML 30 ML IV CONT (10:20)
[2024-06-24] MEDS: TRANEXAMIC ACID 1,000MG/ISO100 1,000 MG/100 ML BAG 200 MG IVPB (10:20)
[2024-06-24] MEDS: VANCOMYCIN 1,250 MG/NS 250 ML 1,250 MG/250 ML BAG 166.67 MG IVPB (10:25)
--- NOTE | 2024-06-24 11:36 | WPDANESEPPF ---
Anes - Initial Pre Proc Eval Procedure: Operation Date: 06/24/24 11:30 Proposed Procedures p Right Total Knee Arthroplasty, Left Knee Cortisone Injection - Gary Nava MD Date/Time: 06/24/24 11:36 Surgeon: Gary Nava MD Pre Op Diagnosis: Rt Knee O A Patient Data Age: 74 Gender: M Height: 1.78 m Weight: 76.7 kg Last Vital Signs Temp 36.5 C 06/24/24 09:53 Pulse 75 06/24/24 09:53 Resp 18 06/24/24 09:53 BP 108/67 06/24/24 09:53 Pulse Ox 98 06/24/24 09:53 O2 Del Method Room Air 06/24/24 09:53 Allergies Allergy/AdvReac Type Severity Reaction Status Date / Time ximena Allergy Severe Swelling Verified 06/24/24 10:33 of Lip/Tongue/Throat poison enedelia extract Allergy Intermediate Blister Verified 06/04/24 08:14 Home Medications ?Medication ?Instructions ?Recorded ?Confirmed ?Type Daily Multiple For Men 1 tab-cap PO DAILY 09/25/21 06/24/24 History ascorbic acid (vitamin C) 500 mg 500 mg PO BID 09/25/21 06/24/24 History capsule calcium 600 mg (as 1 tablet PO DAILY 09/25/21 06/24/24 History carbonate)-vitamin D3 10 mcg (400 unit) tablet (Calcium with Vitamin D) cyanocobalamin (vitamin B-12) 1,000 mcg PO BID 09/25/21 06/24/24 History 1,000 mcg tablet (Vitamin B-12) magnesium 500 mg tablet 500 mg PO BID 09/25/21 06/24/24 History amlodipine 10 mg tablet 10 mg PO DAILY 02/13/24 06/24/24 History hydrochlorothiazide 25 mg tablet 25 mg PO DAILY 02/13/24 06/24/24 History meloxicam 15 mg tablet 15 mg PO DAILY 02/13/24 06/24/24 History omega-3 fatty acids 500 mg capsule 500 mg PO DAILY 03/19/24 06/24/24 History tadalafil 20 mg tablet 20 mg PO DAILY PRN sexual activity 03/19/24 06/24/24 History testosterone cypionate 200 mg/mL 80 mg IM 2XW 03/19/24 06/24/24 History intramuscular oil TUMERIC 500 mg PO BID 06/04/24 06/24/24 History famotidine 40 mg tablet 40 mg PO DAILY 06/04/24 06/24/24 History Laboratory Tests 06/24/24 10:15 Blood Type Pending Antibody Screen Pending Patient hx anesthesia problems: none Family hx anesthesia problems: none Results Review: All pre-operative results and documents have been reviewed as part of the pre-operative evaluation. [facility] Past Medical History Medical History (Updated 06/24/24 @ 11:48 by Christiano Martinez DO) GERD (gastroesophageal reflux disease) Hypertension Surgical History Surgical History History of tonsillectomy History of hand surgery Family History Family History Other Diabetes mellitus Social History Social History (Updated 06/02/24 @ 07:40 by Mildred Sargent CMA) Smoking status: Former smoker Second hand tobacco smoke exposure: No Additional smoking assessment comments: DENIES ANY FORM OF TOBACCO USE Alcohol intake: former Substance use: never Substance use type: does not use Do You Feel Safe in your Home?: Yes Lack of Transportation: No Lack of Food: Never True Current Housing: I Have Housing Concerned About Future Housing: No Difficulty Paying Gas/Electric Bills: No Difficulty Paying for Meds: No Currently Unemployed: No Education: High School Diploma/GED Difficulty w/ Childcare or Family Care: No Living arrangements: with family Occupation/Education: occupation 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 Informed Consent: The patient's anesthetic plan and its attendant risks and benefits were discussed with the patient/family/POA. Questions were solicited and answers provided to the satisfaction of the patient/family/POA.
--- NOTE | 2024-06-24 12:09 | SUR.PREOP ---
1210 DR. CHANG HERE TO SPEAK WITH PT, LEFT KNEE ASPIRATION DONE AT BEDSIDE, SURGERY CANCELLED TODAY PER DR. CHANG. INFORMED AND SPOKE WITH DR. CHANG. PT TO BE ADMITTED
--- NOTE | 2024-06-24 12:47 | WPDHPUPDATE1 ---
History and Physical Update Update Date/Time: 06/24/24 12:47 Patient presented to the preop holding area today scheduled for right total knee arthroplasty. He has severe osteoarthritis in both knees but the right knee had been bothering him much more. Today however the right knee is mild compared to his left knee pain which has become excruciating and he requested that we do his left knee replacement today instead of the right. On exam today the left knee has a large effusion range of motion from 15-70 degrees with severe pain at extremes moderately severe pain with gentle valgus stress with mild valgus pseudolaxity. There is moderate warmth about the left knee the skin is intact. He has moderately severe diffuse tenderness about the left knee. The right knee has a mild effusion absence of warmth and relatively mild discomfort with range of motion. He states the right knee is at its baseline. He started noticing increased pain in both his knees as well as his hands starting about 2 days ago. He stopped his meloxicam 7 days ago. He is also stop some of his other medications including turmeric and testosterone in preparation for surgery scheduled for today. Over the last 24 hours he has had 4 episodes of fevers and chills and he is having a hard time getting out of bed feeling poorly. His main complaint though has been the excruciating pain in his left knee. He denies any history of gout. He has never had pain in his left knee this severe even though he has had severe medial compartment osteoarthritis in the left knee for many years. He is alert and oriented. He notes that he has not been drinking very much in terms of fluid intake over the last 2 days because he has not felt like it. His list of medications does include hydrochlorothiazide. I recommended aspirating his knee before bringing him to the operating room to proceed with left knee replacement today. After careful ChloraPrep prep, a 22 gauge needle was inserted in the lateral parapatellar approach and 8 cc of thick white yellow colored pus was withdrawn. Assessment and plan Patient has an extremely severe inflammatory arthritis process involving his left knee that has been going on for the last 48 hours with no history of inflammatory arthritis in the past. Differential diagnosis would include septic arthritis. His nasal swab did grow oxacillin sensitive Staph aureus. Differential diagnosis would also include gout, pseudogout, rheumatoid arthritis or combination of septic arthritis and non aseptic inflammatory arthritis. We have just received the Gram stain report which was many white cells but no organisms seen. We will start him on his regular diet. I recommended admission to the hospital for IV antibiotics while we wait for culture results. If he does grow an organism he will undergo arthroscopic debridement of the left knee. His clinical picture is not consistent with an inflammatory arthritis of the right knee at this time. We will initiate vancomycin ceftriaxone and give him a dose of Decadron and 1 dose of Toradol for anti-inflammatory effect. I have ordered CBC with diff CMP sed rate, CRP, rheumatoid factor, anti CCP, KIERAN. Uric acid. It would seem most likely that he is experiencing an attack of gout or pseudogout perhaps brought about by relative dehydration due to his diminished fluid intake over the last 2 days. He is on hydrochlorothiazide which can be associated with uric acid elevation in some people so I have put that on hold for now. I will ask the hospitalist to see him as well. Patient has a walker at home which his will bring in. And of course is knee replacement surgery has to be put on hold for now as it would be contraindicated in the face of an infection. 90 minutes were spent total care this patient today.
--- NOTE | 2024-06-24 13:05 | P.HP_ITS ---
H&P: HPI History of Present Illness Date/Time: 06/24/24 13:05 Chief Complaint: Severe pain left knee, swelling and warmth, fevers and chills. Rule out septic arthritis left knee [facility] Past Medical History Medical History (Updated 06/24/24 @ 13:06 by Gary Nava MD) GERD (gastroesophageal reflux disease) Hypertension Surgical History Surgical History History of tonsillectomy History of hand surgery Family History Family History Other Diabetes mellitus Social History Social History (Updated 06/02/24 @ 07:40 by Mildred Sargent [facility] [address]) Smoking status: Former smoker Second hand tobacco smoke exposure: No Additional smoking assessment comments: DENIES ANY FORM OF TOBACCO USE Alcohol intake: former Substance use: never Substance use type: does not use Do You Feel Safe in your Home?: Yes Lack of Transportation: No Lack of Food: Never True Current Housing: I Have Housing Concerned About Future Housing: No Difficulty Paying Gas/Electric Bills: No Difficulty Paying for Meds: No Currently Unemployed: No Education: High School Diploma/GED Difficulty w/ Childcare or Family Care: No Living arrangements: with family Occupation/Education: occupation 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 Gender identity (if verbalized by the patient): Male Spiritual care concerns: No Meds Home Medications and Allergies Home Medications ?Medication ?Instructions ?Recorded ?Confirmed ?Type Daily Multiple For Men 1 tab-cap PO DAILY 09/25/21 06/24/24 History ascorbic acid (vitamin C) 500 mg 500 mg PO BID 09/25/21 06/24/24 History capsule calcium 600 mg (as 1 tablet PO DAILY 09/25/21 06/24/24 History carbonate)-vitamin D3 10 mcg (400 unit) tablet (Calcium with Vitamin D) cyanocobalamin (vitamin B-12) 1,000 mcg PO BID 09/25/21 06/24/24 History 1,000 mcg tablet (Vitamin B-12) magnesium 500 mg tablet 500 mg PO BID 09/25/21 06/24/24 History amlodipine 10 mg tablet 10 mg PO DAILY 02/13/24 06/24/24 History hydrochlorothiazide 25 mg tablet 25 mg PO DAILY 02/13/24 06/24/24 History meloxicam 15 mg tablet 15 mg PO DAILY 02/13/24 06/24/24 History omega-3 fatty acids 500 mg capsule 500 mg PO DAILY 03/19/24 06/24/24 History tadalafil 20 mg tablet 20 mg PO DAILY PRN sexual activity 03/19/24 06/24/24 History testosterone cypionate 200 mg/mL 80 mg IM 2XW 03/19/24 06/24/24 History intramuscular oil TUMERIC 500 mg PO BID 06/04/24 06/24/24 History famotidine 40 mg tablet 40 mg PO DAILY 06/04/24 06/24/24 History Allergies Allergy/AdvReac Type Severity Reaction Status Date / Time ximena Allergy Severe Swelling Verified 06/24/24 10:33 of Lip/Tongue/Throat poison enedelia extract Allergy Intermediate Blister Verified 06/04/24 08:14 Vital Signs Vital Signs - 24 hr 06/24/24 09:53 Temperature 36.5 C Pulse Rate 75 Respiratory Rate 18 Blood Pressure 108/67 Pulse Oximetry 98 Oxygen Delivery Room Air Assessment and Plan Assessment and plan (1) Septic arthritis of knee, left: Qualifiers: Septic arthritis organism: due to unspecified organism Qualified Code(s): M00.9 - Pyogenic arthritis, unspecified Code(s): M00.9 - Pyogenic arthritis, unspecified Status: Acute Plan Patient presented to the preop holding area today scheduled for right total knee arthroplasty. He has severe osteoarthritis in both knees but the right knee had been bothering him much more. Today however the right knee is mild compared to his left knee pain which has become excruciating and he requested that we do his left knee replacement today instead of the right. On exam today the left knee has a large effusion range of motion from 15-70 degrees with severe pain at extremes moderately severe pain with gentle valgus stress with mild valgus pseudolaxity. There is moderate warmth about the left knee the skin is intact. He has moderately severe diffuse tenderness about the left knee. The right knee has a mild effusion absence of warmth and relatively mild discomfort with range of motion. He states the right knee is at its baseline. He started noticing increased pain in both his knees as well as his hands starting about 2 days ago. He stopped his meloxicam 7 days ago. He is also stop some of his other medications including turmeric and testosterone in preparation for surgery scheduled for today. Over the last 24 hours he has had 4 episodes of fevers and chills and he is having a hard time getting out of bed feeling poorly. His main complaint though has been the excruciating pain in his left knee. He denies any history of gout. He has never had pain in his left knee this severe even though he has had severe medial compartment osteoarthritis in the left knee for many years. He is alert and oriented. He notes that he has not been drinking very much in terms of fluid intake over the last 2 days because he has not felt like it. His list of medications does include hydrochlorothiazide. I recommended aspirating his knee before bringing him to the operating room to proceed with left knee replacement today. After careful ChloraPrep prep, a 22 gauge needle was inserted in the lateral parapatellar approach and 8 cc of thick white yellow colored pus was withdrawn. Assessment and plan Patient has an extremely severe inflammatory arthritis process involving his left knee that has been going on for the last 48 hours with no history of inflammatory arthritis in the past. Differential diagnosis would include septic arthritis. His nasal swab did grow oxacillin sensitive Staph aureus. Differential diagnosis would also include gout, pseudogout, rheumatoid arthritis or combination of septic arthritis and non aseptic inflammatory arthritis. We have just received the Gram stain report which was many white cells but no organisms seen. We will start him on his regular diet. I recommended admission to the hospital for IV antibiotics while we wait for culture results. If he does grow an organism he will undergo arthroscopic debridement of the left knee. His clinical picture is not consistent with an inflammatory arthritis of the right knee at this time. We will initiate vancomycin ceftriaxone and give him a dose of Decadron and 1 dose of Toradol for anti-inflammatory effect. I have ordered CBC with diff CMP sed rate, CRP, rheumatoid factor, anti CCP, KIERAN. Uric acid. It would seem most likely that he is experiencing an attack of gout or pseudogout perhaps brought about by relative dehydration due to his diminished fluid intake over the last 2 days. He is on hydrochlorothiazide which can be associated with uric acid elevation in some people so I have put that on hold for now. I will ask the hospitalist to see him as well. Patient has a walker at home which his will bring in. And of course is knee replacement surgery has to be put on hold for now as it would be contraindicated in the face of an infection. 90 minutes were spent total care this patient today.
[2024-06-24] MEDS: cefTRIAXone 2 GM/NS 100 ML 2 GM/100 ML BAG IVPB (13:25)
[2024-06-24 13:32] LABS: Crystals Synovial Fluid None Seen (None Seen)
[2024-06-24 13:39] LABS: Appearance Synovial Fluid Cloudy (Clear); Color Synovial Fluid Yellow (Colorless); Source Synovial Fluid Lt Knee Syn Fluid
[2024-06-24 13:41] LABS: Lymphocytes Synovial Fluid 1 %; Macrophages Synovial Fluid 4 %; Monocytes Synovial Fluid 7 %; Neutrophils Synovial Fluid 88 % (0-25); Nucleated Cell Synovial Fluid 56330 /uL (0-200)
[2024-06-24 13:42] LABS: RBC Synovial Fluid 10000 /uL (0-0)
[2024-06-24] MEDS: dexAMETHasone SOD PHOS INJ 10 MG/ML 1 ML VIAL IV PUSH (13:55)
[2024-06-24] MEDS: KETOROLAC 15 MG/ML VIAL (*BKC) IV PUSH (14:05)
[2024-06-24 14:22] LABS: Basophils Percent Auto 0.3 % (0.2-1.2); Eosinophils Percent Auto 0.1 % (0-4.4); Hematocrit 42.8 % (42.0-52.0); Hemoglobin 15.1 g/dL (14.0-18.0); Immature Granulocyte Absolute 0.07 K/mm3 (0.00-0.031); Immature Granulocyte Percent A 0.5 % (0-0.5); Lymphocytes Absolute Auto 1.22 K/mm3 (0.9-3.2); Lymphocytes Percent Auto 8.3 % (18.3-44.2); Mean Corpuscular HGB Conc 35.3 g/dl (32-36); Mean Corpuscular Hemoglobin 29.8 pg (26-34); Mean Corpuscular Volume 84.4 fl (80-100); Mean Platelet Volume 9.5 fl (7.4-10.4); Monocytes Absolute Auto 0.9 K/mm3 (0.1-0.6); Monocytes Percent Auto 6.1 % (2.6-8.5); Neutrophils Absolute Auto 12.5 K/mm3 (1.3-6.7); Neutrophils Percent Auto 84.7 % (45.5-73.1); Platelet Count Result 232 k/mm3 (150-375); Red Blood Count 5.07 M/mm3 (4.6-6.20); Red Cell Distribution Width 13.2 % (11.5-14.5); White Blood Count 14.7 K/mm3 (4.5-10.0)
[2024-06-24 14:32] LABS: Alanine Aminotransferase 14 U/L (6-50); Albumin Level 3.8 g/dL (3.5-5.1); Alkaline Phosphatase 55 U/L (38-126); Anion Gap 5 mmol/L (4-12); Aspartate Amino Transferase 21 U/L (17-59); Bilirubin,Total 1.3 mg/dL (0.2-1.3); Blood Urea Nitrogen 33 mg/dL (9-20); Calcium 9.1 mg/dL (8.4-10.2); Carbon Dioxide 29 mmol/L (22-30); Chloride 100 mmol/L (98-107); Estimated CRCL calculation 65 ml/min; Estimated Glomerular Filt Rate > 60; Glucose 134 mg/dL (65-110); Potassium 2.9 mmol/L (3.4-5.0); Sodium 134 mmol/L (137-145)
[2024-06-24 14:43] LABS: Rheumatoid Factor 15.6 IU/ML (<12)
--- NOTE | 2024-06-24 14:52 | ADMGEN ---
This patient, Roberto Norwood, was admitted to Medical Room 340-01. Patient/family oriented to hospital policies and general routines including ID bracelet, bed and alarms, visiting hours, pain management, procedures, bathroom and other care routines, personal items, smoking policy, room service/diet, and visiting hours. Information on how to activate the Rapid Response Team has been discussed. Patient/Family are encouraged to report perceived risks to care and to ask questions if they do not understand what they are told or what they should do.
[2024-06-24 15:04] LABS: CRP 36.5 mg/dL (<1.0)
[2024-06-24 15:11] VITALS: BMI 24.3
[2024-06-24 15:16] LABS: Erythrocyte Sedimentation Rate 30 mm/hr (0-20)
[2024-06-24 15:27] VITALS: BP 125/64; PULSE 67; RESP 18; TEMP 36.7; O2SAT 93
--- NOTE | 2024-06-24 16:37 | WPDCN ---
Assessment and Plan Assessment and plan (1) Septic arthritis of knee, left: Qualifiers: Septic arthritis organism: due to unspecified organism Qualified Code(s): M00.9 - Pyogenic arthritis, unspecified Code(s): M00.9 - Pyogenic arthritis, unspecified Status: Acute Assessment and Plan: Presented initially for elective left total knee arthroplasty with Dr. Nava however has been having fever, chills, increased swelling and warmth to the left knee with concerns for septic arthritis. Surgery has been placed on hold. Synovial joint aspiration performed and sent for culture and gram stain. Synovial joint fluid showing cloudy appearance, RBC 78057, Nuc cells 05618, Neutrophils 88 Gram stain was negative for any organisms however did show increased WBCs Continue Rocephin and Vancomycin WBC 14.7, Tmax 99.1, ESR 30, RF 15.6, KIERAN pending continue pain control Uric acid 9.0 on labs, will await culture--? gout (2) Hypertension: Code(s): I10 - Essential (primary) hypertension Status: Acute Assessment and Plan: Blood pressures ranging 108/67 to 140/75 Continue amlodipine Hold hydrochlorothiazide today due to dehydration on presentation (3) GERD (gastroesophageal reflux disease): Code(s): K21.9 - Gastro-esophageal reflux disease without esophagitis Status: Acute Assessment and Plan: Continue Pepcid HPI Data of Consult Date/Time: 06/24/24 16:37 Requesting Physician: Gary Nava MD Primary Care Provider: Dario Jennings MD Consult Narrative Narrative: Roberto Norwood is a 74 year old male with a significant past medical history of GERD, hypertension, esophageal stricture with ballooning who presented to the hospital for left total knee replacement with Dr. Nava. Surgery was cancelled for today due to the patient having fever, chills, swelling and warmth to the left knee with concerns for septic arthritis. T max here was 99.1. He denies any nausea, vomiting, diarrhea, abdominal pain, chest pain, or shortness of breath. He denies history of Gout. Dr. Nava aspirated the left knee revealing yellow colored pus which was sent for culture and gram stain. He was started on Vancomycin and Rocephin. Initial labs show a WBC 14.7, Na+ 134, potassium 2.9, uric acid 9.0, CRP 36.5. Synovial joint fluid showing cloudy appearance, [address] synovial RBC;s, 89954 synovial nuc cells, 88 synovial neutrophils. gram stain of the synovial joint fluid was negative for organisms however many white blood cells seen. Review of Systems Review of Systems: All systems reviewed & are unremarkable except as noted in HPI and below Constitutional: Constitutional: Reports as per HPI and Reports no additional constitutional complaints Eyes: Eyes: Reports as per HPI and Reports no additional eye complaints ENT: Reports system reviewed and no additional complaints, except as documented and Reports as per HPI Cardiovascular: Cardiovascular: Reports as per HPI and Reports no additional cardiovascular complaints Respiratory: Respiratory: Reports as per HPI and Reports no additional respiratory complaints Gastrointestinal: Gastrointestinal: Reports as per HPI and Reports no additional gastrointestinal complaints Genitourinary: Genitourinary: Reports no additional male genitourinary complaints and Reports as per HPI Musculoskeletal: Musculoskeletal: Reports no additional musculoskeletal complaints and Reports as per HPI Integumentary/Breasts: Skin/Breast: Reports system reviewed and no additional complaints, except as docu and Reports as per HPI Neurologic: Reports system reviewed and no additional complaints, except as documented and Reports as per HPI Psychiatric: Psychiatric: Reports no additional psychiatric complaints and Reports as per HPI [facility] Past Medical History Medical History Neuropathy of left hand GERD (gastroesophageal reflux disease) Hypertension Surgical History Surgical History History of tonsillectomy History of hand surgery Family History Family History Other Diabetes mellitus Social History Social History Smoking status: Former smoker Second hand tobacco smoke exposure: No Additional smoking assessment comments: DENIES ANY FORM OF TOBACCO USE Alcohol intake: former Substance use: never Substance use type: does not use Do You Feel Safe in your Home?: Yes Lack of Transportation: No Lack of Food: Never True Current Housing: I Have Housing Concerned About Future Housing: No Difficulty Paying Gas/Electric Bills: No Difficulty Paying for Meds: No Currently Unemployed: No Education: High School Diploma/GED Difficulty w/ Childcare or Family Care: No Living arrangements: with family Occupation/Education: occupation 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 Gender identity (if verbalized by the patient): Male Spiritual care concerns: No Meds Home Medications and Allergies Home Medications ?Medication ?Instructions ?Recorded ?Confirmed ?Type Daily Multiple For Men 1 tab-cap PO DAILY 09/25/21 06/24/24 History ascorbic acid (vitamin C) 500 mg 500 mg PO BID 09/25/21 06/24/24 History capsule calcium 600 mg (as 1 tablet PO DAILY 09/25/21 06/24/24 History carbonate)-vitamin D3 10 mcg (400 unit) tablet (Calcium with Vitamin D) cyanocobalamin (vitamin B-12) 1,000 mcg PO BID 09/25/21 06/24/24 History 1,000 mcg tablet (Vitamin B-12) magnesium 500 mg tablet 500 mg PO BID 09/25/21 06/24/24 History amlodipine 10 mg tablet 10 mg PO DAILY 02/13/24 06/24/24 History hydrochlorothiazide 25 mg tablet 25 mg PO DAILY 02/13/24 06/24/24 History meloxicam 15 mg tablet 15 mg PO DAILY 02/13/24 06/24/24 History omega-3 fatty acids 500 mg capsule 500 mg PO DAILY 03/19/24 06/24/24 History tadalafil 20 mg tablet 20 mg PO DAILY PRN sexual activity 03/19/24 06/24/24 History testosterone cypionate 200 mg/mL 80 mg IM 2XW 03/19/24 06/24/24 History intramuscular oil TUMERIC 500 mg PO BID 06/04/24 06/24/24 History famotidine 40 mg tablet 40 mg PO DAILY 06/04/24 06/24/24 History Allergies Allergy/AdvReac Type Severity Reaction Status Date / Time ximena Allergy Severe Swelling Verified 06/24/24 10:33 of Lip/Tongue/Throat poison enedelia extract Allergy Intermediate Blister Verified 06/04/24 08:14 Vital Signs Vital Signs - 24 hr 06/24/24 09:53 06/24/24 15:27 Temperature 97.7 F 98.0 F Pulse Rate 75 67 Respiratory Rate 18 18 Blood Pressure 108/67 125/64 Pulse Oximetry 98 93 Oxygen Delivery Room Air Exam Narrative: General: In no acute distress, well nourished Head: atraumatic, no encephalopathy Eyes: PERRLA, sclera clear ENT: moist mucous membranes, nasal passages clear Neck: supple, no JVD, no adenopathy, trachea midline Cardiac: Normal S1 and S2. RRR, No murmur, gallops or friction rubs, peripheral pulses intact. Respiratory: Lungs clear to auscultation, no adventitious lung sounds, currently on room air Gastrointestinal: soft, non-distended, non-tender, normoactive bowel sounds. : voiding without difficulty. Extremities:left knee swollen and warm to touch Skin: clean, dry, intact. No wounds or lesions. Neuro: Alert and oriented x4, cranial nerves intact, no neuro deficits. Psych: normal mood, normal affect, interactive Results Labs 06/24/24 14:15 06/24/24 14:15 Labs: Short CBC 06/24/24 Range/Units 14:15 WBC 14.7 H (4.5-10.0) K/mm3 Hgb 15.1 (14.0-18.0) g/dL Hct 42.8 (42.0-52.0) % Plt Count 232 (150-375) k/mm3 BMP 06/24/24 14:15 Sodium 134 L Potassium 2.9 L Chloride 100 Carbon Dioxide 29 BUN 33 H Creatinine 0.90 Glucose 134 H Calcium 9.1 Liver Function 06/24/24 Range/Units 14:15 Total Bilirubin 1.3 (0.2-1.3) mg/dL AST 21 (17-59) U/L ALT 14 (6-50) U/L Alkaline Phosphatase 55 (38-126) U/L Albumin 3.8 (3.5-5.1) g/dL
[2024-06-24] MEDS: MAGNESIUM OXIDE 400 MG TABLET PO (17:21)
[2024-06-24] MEDS: CYANOCOBALAMIN 1,000 MCG TABLET 1000 MCG PO (17:21)
[2024-06-24] MEDS: ASCORBIC ACID 500 MG TABLET PO (17:21)
[2024-06-24] MEDS: SENNA/DOCUSATE SODIUM TABLET 2 TAB PO (17:21)
[2024-06-24] MEDS: VANCOMYCIN 1,500 MG/NS 500 ML 1,500 MG/500 ML BAG 250 MG IVPB (20:06)
[2024-06-24] MEDS: POTASSIUM CHLORIDE 20 MEQ ER TABLET 40 MEQ PO (20:45)
[2024-06-24 21:23] VITALS: BP 135/63; PULSE 66; RESP 20; TEMP 36.9; O2SAT 96
[2024-06-25 06:12] VITALS: BP 134/74; PULSE 57; RESP 20; TEMP 36.9; O2SAT 94
[2024-06-25 07:53] LABS: Estimated CRCL calculation 73 ml/min; Estimated Glomerular Filt Rate > 60
[2024-06-25] MEDS: amLODIPine BESYLATE 10 MG TABLET PO (10:12)
[2024-06-25] MEDS: polyethylene glycoL 3350 17 GM POWD.PACK PO (10:12)
[2024-06-25] MEDS: ASCORBIC ACID 500 MG TABLET PO ×2 (10:12→17:12)
[2024-06-25] MEDS: CALCIUM/VITAMIN D 500 MG/5 MCG (200 I.U.) TABLET PO (10:12)
[2024-06-25] MEDS: MULTIVITAMINS THERAPEUTIC TAB (*BKC) 1 TABLET PO (10:13)
[2024-06-25] MEDS: ENOXAPARIN 40 MG/0.4 ML SYRINGE SUB-Q (10:13)
[2024-06-25] MEDS: MAGNESIUM OXIDE 400 MG TABLET PO ×2 (10:13→17:12)
[2024-06-25] MEDS: SENNA/DOCUSATE SODIUM TABLET 2 TAB PO ×2 (10:13→17:11)
[2024-06-25] MEDS: FAMOTIDINE 20 MG TABLET 40 MG PO (10:13)
[2024-06-25] MEDS: CYANOCOBALAMIN 1,000 MCG TABLET 1000 MCG PO ×2 (10:13→17:12)
--- NOTE | 2024-06-25 11:27 | P.PNIM_ITS ---
Progress Note: A&P Assessment and Plan (1) Septic arthritis of knee, left: Qualifiers: Septic arthritis organism: due to unspecified organism Qualified Code(s): M00.9 - Pyogenic arthritis, unspecified Code(s): M00.9 - Pyogenic arthritis, unspecified Status: Acute Assessment and Plan: Presented initially for elective left total knee arthroplasty with Dr. Nava however has been having fever, chills, increased swelling and warmth to the left knee with concerns for septic arthritis. Surgery has been placed on hold. * Synovial joint aspiration performed and sent for culture and gram stain. * Synovial joint fluid showing cloudy appearance, RBC 69260, Nuc cells 06449, Neutrophils 88 * Gram stain was negative for any organisms however did show increased WBCs * Continue Rocephin and Vancomycin * WBC 14.7, Tmax 99.1, ESR 30, RF 15.6, KIERAN pending * continue pain control * Uric acid 9.0 on labs, will await culture--? gout 06/25 * Will give loading dose of colchicine today * Continue colchicine 0.6 mg daily (2) Hypertension: Code(s): I10 - Essential (primary) hypertension Status: Acute Assessment and Plan: * Blood pressures ranging 108/67 to 140/75 * Continue amlodipine * Hold hydrochlorothiazide today due to dehydration on presentation 06/25 * Stop HCTZ (3) GERD (gastroesophageal reflux disease): Code(s): K21.9 - Gastro-esophageal reflux disease without esophagitis Status: Acute Assessment and Plan: * Continue Pepcid Time Spent With Patient Time with patient: Greater than 35 minutes Subjective Date/time seen: 06/25/24 11:27 Interval history: Interval history: Roberto Norwood is a 74 year old male with a significant past medical history of GERD, hypertension, esophageal stricture with ballooning who presented to the hospital for left total knee replacement with Dr. Nava. Surgery was cancelled for today due to the patient having fever, chills, swelling and warmth to the left knee with concerns for septic arthritis. T max here was 99.1. He denies any nausea, vomiting, diarrhea, abdominal pain, chest pain, or shortness of breath. He denies history of Gout. Dr. Nava aspirated the left knee revealing yellow colored pus which was sent for culture and gram stain. He was started on Vancomycin and Rocephin. Initial labs show a WBC 14.7, Na+ 134, potassium 2.9, uric acid 9.0, CRP 36.5. Synovial joint fluid showing cloudy appearance, [address] synovial RBC;s, 34433 synovial nuc cells, 88 synovial neutrophils. gram stain of the synovial joint fluid was negative for organisms however many white blood cells seen. Subjective: Patient denies any new complaints today. Labs reviewed. Review of Systems Review of Systems: All systems reviewed & are unremarkable except as noted in HPI and below Constitutional: Constitutional: Reports as per HPI and Reports no additional constitutional complaints Eyes: Eyes: Reports as per HPI and Reports no additional eye complaints ENT: Reports system reviewed and no additional complaints, except as documented and Reports as per HPI Cardiovascular: Cardiovascular: Reports as per HPI and Reports no additional cardiovascular complaints Respiratory: Respiratory: Reports as per HPI and Reports no additional respiratory complaints Gastrointestinal: Gastrointestinal: Reports as per HPI and Reports no additional gastrointestinal complaints Genitourinary: Genitourinary: Reports no additional male genitourinary complaints and Reports as per HPI Musculoskeletal: Musculoskeletal: Reports no additional musculoskeletal complaints and Reports as per HPI Integumentary/Breasts: Skin/Breast: Reports system reviewed and no additional complaints, except as docu and Reports as per HPI Neurologic: Reports system reviewed and no additional complaints, except as documented and Reports as per HPI Psychiatric: Psychiatric: Reports no additional psychiatric complaints and Reports as per HPI Exam Narrative: General: In no acute distress, well nourished Cardiac: Normal S1 and S2. RRR, No murmur, gallops or friction rubs, peripheral pulses intact. Respiratory: Lungs clear to auscultation, no adventitious lung sounds, currently on room air Gastrointestinal: soft, non-distended, non-tender, normoactive bowel sounds. : voiding without difficulty. Extremities:left knee swollen Neuro: Alert and oriented x4 Objective Data Vital Signs Vital Signs: Vital Signs - 24 hr 06/24/24 15:27 06/24/24 20:00 06/24/24 21:23 Temperature 98.0 F 98.4 F Pulse Rate 67 66 Respiratory Rate 18 20 Blood Pressure 125/64 135/63 Pulse Oximetry 93 96 Oxygen Delivery Room Air 06/25/24 06:12 Temperature 98.4 F Pulse Rate 57 L Respiratory Rate 20 Blood Pressure 134/74 Pulse Oximetry 94 Oxygen Delivery Intake/Output Intake/Output: Intake & Output 06/22/24 06/23/24 06/24/24 06/25/24 23:59 23:59 23:59 23:59 Intake Total 875 960 Output Total 350 325 Balance 525 635 Meds/Results Medications: Active Medications Generic Name Dose Route Start Last Admin Trade Name Andrea PRN Reason Stop Dose Admin Amlodipine Besylate 10 mg 06/25/24 09:00 06/25/24 10:12 Amlodipine Besylate 10 Mg Tablet PO 10 mg DAILY SEMAJ Administration Ascorbic Acid 500 mg 06/24/24 17:00 06/25/24 10:12 Ascorbic Acid 500 Mg Tablet PO 500 mg BID SEMAJ Administration Calcium Carbonate 500 mg 06/25/24 09:00 06/25/24 10:12 Calcium/Vitamin D 500 Mg/5 Mcg (200 I.U.) Tablet PO 500 mg QAM SEMAJ Administration Cyanocobalamin 1,000 mcg 06/24/24 17:00 06/25/24 10:13 Cyanocobalamin 1,000 Mcg Tablet PO 1,000 mcg BID SEMAJ Administration Enoxaparin Sodium 40 mg 06/25/24 09:00 06/25/24 10:13 Enoxaparin 40 Mg/0.4 Ml Syringe SUB-Q 40 mg DAILY SEMAJ Administration Famotidine 40 mg 06/25/24 09:00 06/25/24 10:13 Famotidine 20 Mg Tablet PO 40 mg DAILY SEMAJ Administration Ceftriaxone Sodium 2 gm in 100 mls @ 200 mls/hr 06/24/24 13:00 06/24/24 13:25 Rocephin 2 Gm/Ns 100 Ml IVPB 200 mls/hr Q24H SEMAJ Administration Vancomycin HCl 1,500 mg in 500 mls @ 250 mls/hr 06/24/24 21:00 06/24/24 22:06 Vancomycin 1,500 Mg/Ns 500 Ml IVPB Infused Q18H SEMAJ Infusion Magnesium Oxide 400 mg 06/24/24 17:00 06/25/24 10:13 Magnesium Oxide 400 Mg Tablet PO 400 mg BID SEMAJ Administration Multivitamins Therapeutic 1 tablet 06/25/24 09:00 06/25/24 10:13 Multivitamins Therapeutic Tab (*Bkc) PO 1 tablet QAM SEMAJ Administration Oxycodone HCl 5 mg 06/24/24 12:27 Oxycodone Hcl (*Crx) 5 Mg Tab Ir PO Q4H PRN Pain Rated 4-6 Polyethylene Glycol 17 gm 06/25/24 09:00 06/25/24 10:12 Polyethylene Glycol 3350 17 Gm Powd.Pack PO 17 gm QAM SEMAJ Administration Senna/Docusate Sodium 2 tab 06/24/24 17:00 06/25/24 10:13 Senna/Docusate Sodium Tablet PO 2 tab BID SEMAJ Administration Labs Labs: Laboratory Results - last 24 hr 06/24/24 06/24/24 06/24/24 10:15 11:58 14:15 WBC 14.7 H RBC 5.07 Hgb 15.1 Hct 42.8 MCV 84.4 MCH 29.8 MCHC 35.3 RDW 13.2 Plt Count 232 MPV 9.5 Immature Gran % (Auto) 0.5 Neut % (Auto) 84.7 H Lymph % (Auto) 8.3 L [place] % (Auto) 6.1 Eos % (Auto) 0.1 Baso % (Auto) 0.3 Lymph # (Auto) 1.22 [place] # (Auto) 0.9 H Eos # (Auto) 0.0 Baso # (Auto) 0.0 Abs Immat Gran (auto) 0.07 H Absolute Neuts (auto) 12.5 H Absolute Nucleated RBC 0.000 Nucleated RBC % 0.0 ESR 30 H Sodium 134 L Potassium 2.9 L Chloride 100 Carbon Dioxide 29 Anion Gap 5 BUN 33 H Creatinine 0.90 Estim Creat Clear Calc 65 Estimated GFR > 60 Glucose 134 H Uric Acid 9.0 H Calcium 9.1 Total Bilirubin 1.3 AST 21 ALT 14 Alkaline Phosphatase 55 C-Reactive Protein 36.5 H Total Protein 7.0 Albumin 3.8 Synovial Source Lt knee syn fluid Synovial Color Yellow Synovial Appearance Cloudy [place] RBC 47266 H Synovial Nuc Cells 43030 H Synovial Neutrophils 88 H Synovial Lymphocytes 1 Synovial Monocytes 7 Synovial Macrophages 4 Synovial Crystals None seen Rheumatoid Factor 15.6 Blood Type A Positive Antibody Screen Negative 06/25/24 06:45 WBC RBC Hgb Hct MCV MCH MCHC RDW Plt Count MPV Immature Gran % (Auto) Neut % (Auto) Lymph % (Auto) [place] % (Auto) Eos % (Auto) Baso % (Auto) Lymph # (Auto) [place] # (Auto) Eos # (Auto) Baso # (Auto) Abs Immat Gran (auto) Absolute Neuts (auto) Absolute Nucleated RBC Nucleated RBC % ESR Sodium Potassium Chloride Carbon Dioxide Anion Gap BUN Creatinine 0.80 Estim Creat Clear Calc 73 Estimated GFR > 60 Glucose Uric Acid Calcium Total Bilirubin AST ALT Alkaline Phosphatase C-Reactive Protein Total Protein Albumin Synovial Source Synovial Color Synovial Appearance Synovial RBC Synovial Nuc Cells Synovial Neutrophils Synovial Lymphocytes Synovial Monocytes Synovial Macrophages Synovial Crystals Rheumatoid Factor Blood Type Antibody Screen Quality VTE Prophylaxis VTE prophylaxis: pharmacologic ordered
--- NOTE | 2024-06-25 12:02 | P.PNOP_ITS ---
Progress Note: A&P Assessment and Plan (1) Septic arthritis of knee, left: Qualifiers: Septic arthritis organism: due to unspecified organism Qualified Code(s): M00.9 - Pyogenic arthritis, unspecified Code(s): M00.9 - Pyogenic arthritis, unspecified Status: Acute Assessment and Plan: patient is feeling much better this morning. He has been afebrile. His white count has elevated to 14.7 which may be a result of the Decadron dose. His C-reactive protein yesterday was 34 normal being less than 1 which raises the suspicion for septic arthritis. His sedimentation rate was only 30. Mildly elevated. his left knee aspirate showed 56,000 white cells of which 88% were polys. this is also suspicious for septic arthritis but would be consistent with gout as well. There were no crystals seen on the examination of the joint fluid but his uric acid was elevated at 9 which would be consistent with gout. Sometimes crystals are not seen even though there is a severe inflammatory gouty arthritis. G stain of the synovial fluid showed no organisms but many white cells. It looks like the culture was set up at 9:00 a.m. this morning which was when they did the Gram stain so the culture is still pending of course the preliminary 1 day culture results should be available tomorrow. Patient is on vancomycin the ceftriaxone for broad-spectrum coverage to include Staph aureus. On examination, he has only a [id number] effusion and did not have significant parapatellar tenderness or pain with varus valgus stress. His range of motion was better 12? to 110? and this did not cause more than mild discomfort like he had been experiencing for several years. His rheumatoid factor was slightly elevated. Questionable significance. Anti CCP is pending. Assessment and plan 1. Patient has a severe acute inflammatory arthritis in the left knee with 56,000 white cells of which 88% were neutrophils. He had a very elevated uric acid and his clinical presentation being somewhat dehydrated by not drinking very much the last couple of days and being on hydrochlorothiazide would be a somewhat predictable setting in which a first-time attack of gout might occur. His high synovial white count and neutrophil count in the knee aspirate are consistent with gout. Unfortunately, this high white count and neutrophil percentage and a C-reactive protein 30 4 times the normal level is consistent with septic arthritis. His rather dramatic improvement clinically in terms of his symptoms in the left knee would point more toward an attack of gout responding quickly to the Decadron IV dose we gave him yesterday. In general a septic arthritis will show some improvement with the antibiotics and the Decadron dose but usually not to this degree so quickly. I would recommend that we continue with the IV antibiotics until we have the preliminary 1 day culture results tomorrow. If his cultures are no growth tomorrow, I think he can be discharged home. We can give him a week's worth of antibiotics orally while we wait for the final culture results. Patient did receive 1 IV dose of vancomycin before the left knee was aspirated while he was in the preop area. I would doubt that would suppress bacterial growth from the fluid on culture to the extent that we would end up with a false negative result. Therefore, if the cultures proved to be negative and his clinical picture shows consistent improvement after the antibiotics are discontinued, I would conclude that with a very high degree of likelihood he did not have a septic arthritis. I will ask the hospitalist service to address initiating management of his presumed gout and elevated uric acid level. Subjective Subjective Date/Time Seen: 06/25/24 12:02 Objective Data Vital Signs Vital Signs: Vital Signs - 24 hr 06/24/24 15:27 06/24/24 20:00 06/24/24 21:23 Temperature 36.7 C 36.9 C Pulse Rate 67 66 Respiratory Rate 18 20 Blood Pressure 125/64 135/63 Pulse Oximetry 93 96 Oxygen Delivery Room Air 06/25/24 06:12 Temperature 36.9 C Pulse Rate 57 L Respiratory Rate 20 Blood Pressure 134/74 Pulse Oximetry 94 Oxygen Delivery Intake/Output Intake/Output: Intake & Output 06/22/24 06/23/24 06/24/24 06/25/24 23:59 23:59 23:59 23:59 Intake Total 875 960 Output Total 350 325 Balance 525 635 Meds/Results Medications: Active Medications Generic Name Dose Route Start Last Admin Trade Name Freq PRN Reason Stop Dose Admin Amlodipine Besylate 10 mg 06/25/24 09:00 06/25/24 10:12 Amlodipine Besylate 10 Mg Tablet PO 10 mg DAILY SEMAJ Administration Ascorbic Acid 500 mg 06/24/24 17:00 06/25/24 10:12 Ascorbic Acid 500 Mg Tablet PO 500 mg BID SEMAJ Administration Calcium Carbonate 500 mg 06/25/24 09:00 06/25/24 10:12 Calcium/Vitamin D 500 Mg/5 Mcg (200 I.U.) Tablet PO 500 mg QAM SEMAJ Administration Cyanocobalamin 1,000 mcg 06/24/24 17:00 06/25/24 10:13 Cyanocobalamin 1,000 Mcg Tablet PO 1,000 mcg BID SEMAJ Administration Dexamethasone Sodium Phosphate 4 mg 06/25/24 12:02 Dexamethasone Sod Phos Inj 4 Mg/Ml Vial IV PUSH 06/25/24 12:03 ONCE ONE Enoxaparin Sodium 40 mg 06/25/24 09:00 06/25/24 10:13 Enoxaparin 40 Mg/0.4 Ml Syringe SUB-Q 40 mg DAILY SEMAJ Administration Famotidine 40 mg 06/25/24 09:00 06/25/24 10:13 Famotidine 20 Mg Tablet PO 40 mg DAILY SEMAJ Administration Ceftriaxone Sodium 2 gm in 100 mls @ 200 mls/hr 06/24/24 13:00 06/24/24 13:25 Rocephin 2 Gm/Ns 100 Ml IVPB 200 mls/hr Q24H SEMAJ Administration Vancomycin HCl 1,500 mg in 500 mls @ 250 mls/hr 06/24/24 21:00 06/24/24 22:06 Vancomycin 1,500 Mg/Ns 500 Ml IVPB Infused Q18H SEMAJ Infusion Magnesium Oxide 400 mg 06/24/24 17:00 06/25/24 10:13 Magnesium Oxide 400 Mg Tablet PO 400 mg BID SEMAJ Administration Methylprednisolone Sodium Succinate 1 dosepack 06/25/24 12:00 Methylprednisolone (Medrol) Dosepack PO DIRECTED [facility] Multivitamins Therapeutic 1 tablet 06/25/24 09:00 06/25/24 10:13 Multivitamins Therapeutic Tab (*Bkc) PO 1 tablet QAM [facility] Administration Oxycodone HCl 5 mg 06/24/24 12:27 Oxycodone Hcl (*Crx) 5 Mg Tab Ir PO Q4H PRN Pain Rated 4-6 Polyethylene Glycol 17 gm 06/25/24 09:00 06/25/24 10:12 Polyethylene Glycol 3350 17 Gm Powd.Pack PO 17 gm QAM SEMAJ Administration Senna/Docusate Sodium 2 tab 06/24/24 17:00 06/25/24 10:13 Senna/Docusate Sodium Tablet PO 2 tab BID SEMAJ Administration Labs Labs: Laboratory Results - last 24 hr 06/24/24 06/24/24 06/25/24 11:58 14:15 06:45 WBC 14.7 H RBC 5.07 Hgb 15.1 Hct 42.8 MCV 84.4 MCH 29.8 MCHC 35.3 RDW 13.2 Plt Count 232 MPV 9.5 Immature Gran % (Auto) 0.5 Neut % (Auto) 84.7 H Lymph % (Auto) 8.3 L [place] % (Auto) 6.1 Eos % (Auto) 0.1 Baso % (Auto) 0.3 Lymph # (Auto) 1.22 [place] # (Auto) 0.9 H Eos # (Auto) 0.0 Baso # (Auto) 0.0 Abs Immat Gran (auto) 0.07 H Absolute Neuts (auto) 12.5 H Absolute Nucleated RBC 0.000 Nucleated RBC % 0.0 ESR 30 H Sodium 134 L Potassium 2.9 L Chloride 100 Carbon Dioxide 29 Anion Gap 5 BUN 33 H Creatinine 0.90 0.80 Estim Creat Clear Calc 65 73 Estimated GFR > 60 > 60 Glucose 134 H Uric Acid 9.0 H Calcium 9.1 Total Bilirubin 1.3 AST 21 ALT 14 Alkaline Phosphatase 55 C-Reactive Protein 36.5 H Total Protein 7.0 Albumin 3.8 Synovial Source Lt knee syn fluid Synovial Color Yellow Synovial Appearance [place] [address] H Synovial Nuc Cells 21742 H Synovial Neutrophils 88 H Synovial Lymphocytes 1 Synovial Monocytes 7 Synovial Macrophages 4 Synovial Crystals None seen Rheumatoid Factor 15.6
[2024-06-25] MEDS: cefTRIAXone 2 GM/NS 100 ML 2 GM/100 ML BAG IVPB (12:44)
[2024-06-25] MEDS: dexAMETHasone SOD PHOS INJ 4 MG/ML VIAL IV PUSH (12:44)
[2024-06-25] MEDS: methylPREDNISolone (MEDROL) DOSEPACK 4 MG TABLETS PO ×4 (12:46→21:03)
[2024-06-25] MEDS: COLCHICINE 0.6 MG TABLET 1.2 MG PO (13:45)
[2024-06-25 14:12] VITALS: BP 129/76; PULSE 70; RESP 18; TEMP 36.7; O2SAT 97
[2024-06-25 14:22] LABS: Basophils Percent Auto 0.1 % (0.2-1.2); Hematocrit 41.6 % (42.0-52.0); Hemoglobin 14.6 g/dL (14.0-18.0); Immature Granulocyte Absolute 0.12 K/mm3 (0.00-0.031); Immature Granulocyte Percent A 0.5 % (0-0.5); Lymphocytes Absolute Auto 0.73 K/mm3 (0.9-3.2); Lymphocytes Percent Auto 3.3 % (18.3-44.2); Mean Corpuscular HGB Conc 35.1 g/dl (32-36); Mean Corpuscular Hemoglobin 29.9 pg (26-34); Mean Corpuscular Volume 85.1 fl (80-100); Mean Platelet Volume 10.2 fl (7.4-10.4); Monocytes Absolute Auto 1.1 K/mm3 (0.1-0.6); Monocytes Percent Auto 5.1 % (2.6-8.5); Neutrophils Absolute Auto 19.8 K/mm3 (1.3-6.7); Platelet Count Result 306 k/mm3 (150-375); Red Blood Count 4.89 M/mm3 (4.6-6.20); Red Cell Distribution Width 13.2 % (11.5-14.5); White Blood Count 21.8 K/mm3 (4.5-10.0)
[2024-06-25 14:51] LABS: Alanine Aminotransferase 17 U/L (6-50); Albumin Level 3.6 g/dL (3.5-5.1); Alkaline Phosphatase 59 U/L (38-126); Anion Gap 8 mmol/L (4-12); Aspartate Amino Transferase 21 U/L (17-59); Bilirubin,Total 0.5 mg/dL (0.2-1.3); Blood Urea Nitrogen 32 mg/dL (9-20); Carbon Dioxide 23 mmol/L (22-30); Chloride 106 mmol/L (98-107); Estimated CRCL calculation 82 ml/min; Estimated Glomerular Filt Rate > 60; Glucose 159 mg/dL (65-110); Potassium 3.6 mmol/L (3.4-5.0); Sodium 137 mmol/L (137-145)
[2024-06-25] MEDS: VANCOMYCIN 1,500 MG/NS 500 ML 1,500 MG/500 ML BAG 250 MG IVPB (14:57)
[2024-06-25] MEDS: COLCHICINE 0.6 MG TABLET PO (14:57)
[2024-06-25 15:06] LABS: CRP 23.4 mg/dL (<1.0)
[2024-06-25 15:13] LABS: Erythrocyte Sedimentation Rate 46 mm/hr (0-20)
[2024-06-25 21:29] VITALS: BP 116/62; PULSE 71; RESP 18; TEMP 36.6; O2SAT 93
[2024-06-26 05:56] VITALS: BP 136/62; PULSE 65; RESP 18; TEMP 36.2; O2SAT 95
[2024-06-26] MEDS: methylPREDNISolone (MEDROL) DOSEPACK 4 MG TABLETS PO (06:39)
[2024-06-26 08:35] LABS: Estimated CRCL calculation 95 ml/min; Estimated Glomerular Filt Rate > 60
[2024-06-26 08:43] LABS: CRP 11.9 mg/dL (<1.0); Erythrocyte Sedimentation Rate 52 mm/hr (0-20); Vancomycin Trough 5.7 ug/mL (10.0-20.0)
[2024-06-26] MEDS: ENOXAPARIN 40 MG/0.4 ML SYRINGE SUB-Q (09:33)
[2024-06-26] MEDS: amLODIPine BESYLATE 10 MG TABLET PO (09:34)
[2024-06-26] MEDS: FAMOTIDINE 20 MG TABLET 40 MG PO (09:34)
[2024-06-26] MEDS: ASCORBIC ACID 500 MG TABLET PO (09:34)
[2024-06-26] MEDS: COLCHICINE 0.6 MG TABLET PO (09:34)
[2024-06-26] MEDS: MULTIVITAMINS THERAPEUTIC TAB (*BKC) 1 TABLET PO (09:34)
[2024-06-26] MEDS: CYANOCOBALAMIN 1,000 MCG TABLET 1000 MCG PO (09:34)
[2024-06-26] MEDS: CALCIUM/VITAMIN D 500 MG/5 MCG (200 I.U.) TABLET PO (09:34)
[2024-06-26] MEDS: SENNA/DOCUSATE SODIUM TABLET 2 TAB PO (09:34)
[2024-06-26] MEDS: MAGNESIUM OXIDE 400 MG TABLET PO (09:34)
--- NOTE | 2024-06-26 09:38 | P.PNOP_ITS ---
Progress Note: A&P Assessment and Plan (1) Gouty arthritis of left knee: Code(s): M10.9 - Gout, unspecified Status: Acute Assessment and Plan: Hospital day 2. Patient is feeling much better today. He is walking in the room without difficulty using the walker. His left knee has only a trace effusion palpable today. Range of motion 12-105 degrees. He has discomfort at full flexion but minimal discomfort throughout his range of motion otherwise. There is no swelling or warmth and there is minimal tenderness only at the medial joint line today. No parapatellar tenderness. There is no swelling in the left lower extremity. His cultures are no growth to date. His C-reactive protein is down to 11. His sedimentation rate is up to 50. He has had a maximum temperature during his hospitalization at 36.9?. His blood pressure is normal and his heart rate is in the 60s. Assessment and plan Patient has rapid clinical response to the steroids argues against an acute septic arthritis. This argues for an attack of gout. Hospitalist service has started him on colchicine and left a prescription for him to continue with this daily for the next 30 days and patient is instructed to see Dr. Jennings at discharge to discuss further options. The question will be whether he needs to be on allopurinol chronically or not. His hydrochlorothiazide has been discontinued since it is strongly believe that he has gout. I will stop his antibiotics at this time. Patient feels quite comfortable be discharged. 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 It is important that he does not overdo his activities which would cause a flare up which will raise the question of whether he has an undiagnosed septic arthritis but I think that is extremely unlikely given this setting. He can resume his meloxicam after his steroids are finished which will be next Friday. I would like to see him back next Friday to assess his progress and I will be looking for his culture results on a daily basis during this time and I have discussed with him that if his cultures proved to grow a pathogen such as Staph aureus then we will call him and bring him back to the hospital for irrigation and debridement and resume antibiotics of course. I think this is extremely unlikely. Subjective Subjective Date/Time Seen: 06/26/24 09:38 Objective Data Vital Signs Vital Signs: Vital Signs - 24 hr 06/25/24 10:10 06/25/24 14:12 06/25/24 20:00 Temperature 36.7 C Pulse Rate 70 Respiratory Rate 18 Blood Pressure 129/76 Pulse Oximetry 97 Oxygen Delivery Room Air Room Air 06/25/24 21:29 06/26/24 05:56 06/26/24 08:00 Temperature 36.6 C 36.2 C L Pulse Rate 71 65 Respiratory Rate 18 18 Blood Pressure 116/62 136/62 Pulse Oximetry 93 95 Oxygen Delivery Room Air Intake/Output Intake/Output: Intake & Output 06/23/24 06/24/24 06/25/24 06/26/24 23:59 23:59 23:59 23:59 Intake Total 975 2760 50 Output Total 350 325 Balance 625 2435 50 Meds/Results Medications: Active Medications Generic Name Dose Route Start Last Admin Trade Name Freq PRN Reason Stop Dose Admin Amlodipine Besylate 10 mg 06/25/24 09:00 06/26/24 09:34 Amlodipine Besylate 10 Mg Tablet PO 10 mg DAILY SEMAJ Administration Ascorbic Acid 500 mg 06/24/24 17:00 06/26/24 09:34 Ascorbic Acid 500 Mg Tablet PO 500 mg BID SEMAJ Administration Calcium Carbonate 500 mg 06/25/24 09:00 06/26/24 09:34 Calcium/Vitamin D 500 Mg/5 Mcg (200 I.U.) Tablet PO 500 mg QAM SEMAJ Administration Colchicine 0.6 mg 06/26/24 09:00 06/26/24 09:34 Colchicine 0.6 Mg Tablet PO 0.6 mg DAILY SEMAJ Administration Cyanocobalamin 1,000 mcg 06/24/24 17:00 06/26/24 09:34 Cyanocobalamin 1,000 Mcg Tablet PO 1,000 mcg BID SEMAJ Administration Enoxaparin Sodium 40 mg 06/25/24 09:00 06/26/24 09:33 Enoxaparin 40 Mg/0.4 Ml Syringe SUB-Q 40 mg DAILY SEMAJ Administration Famotidine 40 mg 06/25/24 09:00 06/26/24 09:34 Famotidine 20 Mg Tablet PO 40 mg DAILY SEMAJ Administration Ceftriaxone Sodium 2 gm in 100 mls @ 200 mls/hr 06/24/24 13:00 06/25/24 13:14 Rocephin 2 Gm/Ns 100 Ml IVPB Infused Q24H SEMAJ Infusion Vancomycin HCl 2,000 mg in 500 mls @ 250 mls/hr 06/26/24 10:00 Vancomycin 2,000 Mg/Ns 500 Ml IVPB Q12H SEMAJ Magnesium Oxide 400 mg 06/24/24 17:00 06/26/24 09:34 Magnesium Oxide 400 Mg Tablet PO 400 mg BID SEMAJ Administration Methylprednisolone 4 mg 06/25/24 06:30 06/26/24 06:39 Methylprednisolone (Medrol) Dosepack 4 Mg Tablets PO 06/30/24 07:29 4 mg 0630,1200,1700 SEMAJ Administration Taper Multivitamins Therapeutic 1 tablet 06/25/24 09:00 06/26/24 09:34 Multivitamins Therapeutic Tab (*Bkc) PO 1 tablet QAM [facility] Administration Oxycodone HCl 5 mg 06/24/24 12:27 Oxycodone Hcl (*Crx) 5 Mg Tab Ir PO Q4H PRN Pain Rated 4-6 Polyethylene Glycol 17 gm 06/25/24 09:00 06/26/24 09:37 Polyethylene Glycol 3350 17 Gm Powd.Pack PO Not Given QAM SEMAJ Senna/Docusate Sodium 2 tab 06/24/24 17:00 06/26/24 09:34 Senna/Docusate Sodium Tablet PO 2 tab BID SEMAJ Administration Labs Labs: Laboratory Results - last 24 hr 06/25/24 06/26/24 13:49 07:56 WBC 21.8 H RBC 4.89 Hgb 14.6 Hct 41.6 L MCV 85.1 MCH 29.9 MCHC 35.1 RDW 13.2 Plt Count 306 MPV 10.2 Immature Gran % (Auto) 0.5 Neut % (Auto) 91.0 H Lymph % (Auto) 3.3 L [place] % (Auto) 5.1 Eos % (Auto) 0.0 Baso % (Auto) 0.1 L Lymph # (Auto) 0.73 L [place] # (Auto) 1.1 H Eos # (Auto) 0.0 Baso # (Auto) 0.0 Abs Immat Gran (auto) 0.12 H Absolute Neuts (auto) 19.8 H Absolute Nucleated RBC 0.000 Nucleated RBC % 0.0 ESR 46 H 52 H Sodium 137 Potassium 3.6 Chloride 106 Carbon Dioxide 23 Anion Gap 8 BUN 32 H Creatinine 0.70 0.60 L Estim Creat Clear Calc 82 95 Estimated GFR > 60 > 60 Glucose 159 H Calcium 9.0 Total Bilirubin 0.5 AST 21 ALT 17 Alkaline Phosphatase 59 C-Reactive Protein 23.4 H 11.9 H Total Protein 7.0 Albumin 3.6 Vancomycin Trough 5.7 L
[2024-06-26] MEDS: VANCOMYCIN 2,000 MG/NS 500 ML 2,000 MG/500 ML BAG 250 MG IVPB (09:40)
--- NOTE | 2024-06-26 09:45 | P.DS_ITS ---
DS: Admitting Diagnosis Discharge Date 06/26/2024 Admitting Diagnosis 06/24/2024 DS: Discharge Diagnosis Discharge Diagnosis (1) Gouty arthritis of left knee: Code(s): M10.9 - Gout, unspecified Status: Acute DS: Summary Hospital Course Hospital Course: Patient was admitted to the hospital with an acute inflammatory arthritis history of fevers and chills and C-reactive protein at 34.6 with extreme pain in his left knee and after aspiration of his left knee showing synovial fluid with 56,000 white cells of which 88% were polys and no crystals identified. He was placed on vancomycin and ceftriaxone empirically and fluid from his knee aspirate was sent to the lab for culture and sensitivity. His cultures have been no growth so far. His uric acid was elevated at 9.0 and is initial BUN creatinine ratio suggested significant dehydration. Patient has no history of gout but it is believed that patient has experienced his 1st episode of gout that happened to coincide with the day of his knee replacement surgery for his right knee which of course was put on hold pending evaluation. He is up walking around with a walker with very mild symptoms today and he has been receiving a Medrol Dosepak. The colchicine was started yesterday and he has received a prescription from the hospitalist service for 30 more days and he has been advised to see Dr. Jennings his primary care physician next week. His hydrochlorothiazide that he took previously has been discontinued and he will not resume it since it is believed that he has gout. 45 minutes were spent in total care this patient with approximately half this time in [id number] discussion and explanation and half spent in orders and documentation. Time Spent with Patient Time attestation: Total time spent providing and/or coordinating discharge services: DS: Data Data Completed and Pending Labs on day of discharge: Labs from last 24 hours 06/26/24 06/25/24 07:56 13:49 WBC 21.8 H RBC 4.89 Hgb 14.6 Hct 41.6 L MCV 85.1 MCH 29.9 MCHC 35.1 RDW 13.2 Plt Count 306 MPV 10.2 Immature Gran % (Auto) 0.5 Neut % (Auto) 91.0 H Lymph % (Auto) 3.3 L [place] % (Auto) 5.1 Eos % (Auto) 0.0 Baso % (Auto) 0.1 L Lymph # (Auto) 0.73 L [place] # (Auto) 1.1 H Eos # (Auto) 0.0 Baso # (Auto) 0.0 Abs Immat Gran (auto) 0.12 H Absolute Neuts (auto) 19.8 H Absolute Nucleated RBC 0.000 Nucleated RBC % 0.0 ESR 52 H 46 H Sodium 137 Potassium 3.6 Chloride 106 Carbon Dioxide 23 Anion Gap 8 BUN 32 H Creatinine 0.60 L 0.70 Estim Creat Clear Calc 95 82 Estimated GFR > 60 > 60 Glucose 159 H Calcium 9.0 Total Bilirubin 0.5 AST 21 ALT 17 Alkaline Phosphatase 59 C-Reactive Protein 11.9 H 23.4 H Total Protein 7.0 Albumin 3.6 Vancomycin Trough 5.7 L Preliminary micro results at discharge 06/24/24 11:58 Anaerobic Culture - Preliminary Synovial Fluid Left Knee Aerobic Culture - Preliminary Discharge Plan Discharge Attending physician on discharge: Gary Nava Discharging Clinician: Gary Nava Patient Disposition: Home, Self-Care Activity: may shower Diet: as tolerated Discharge Instructions: * Continue taking colchicine as prescribed for your Gout. Talk with your primary care doctor about this diagnosis and treatment going forward after this gout attack. * You have been taken off your hydrochlorothiazide as it is contraindicated with diagnosis of Gout. Talk with your primary care doctor about alternatives to this medication. * * You may resume your meloxicam after you have finished with the Medrol Dosepak tablets * Avoid overactivity which might cause her knee to flare. * See Dr. Nava in the office on Friday the . Call Friday to have the appointment scheduled. Your diagnosis is presumed to be gout. The colchicine helps block the intense inflammation that occurs when gout crystals form in the joint. There are 2 considerations for management of the gout. One is to avoid dehydration which is the likely reason you developed gout this time as you had not been drinking much and your lab work on admission showed that you were somewhat dehydrated. The 2nd consideration is to avoid medications and avoid foods and liquids that can precipitate gout. As we discussed today, I would recommend that you research what fluids and foods can exacerbate gout and you will talk to Dr. Jennings about this as well. Before this attack, you were taking hydrochlorothiazide which is a diuretic that is known to cause gout attacks in patients that have gout. It is in excellent medication to help treat hypertension in patients that have no history of gout but now that we believe you do have a history of gout and your uric acid was very elevated at 9, he will want to avoid hydrochlorothiazide in the future as it tends to elevate the uric acid level which can precipitate an attack of gout. The question will be whether it would be appropriate to start you on a medication like allopurinol which lowers the uric acid level in your system or whether you should be observed after get over this attack to see if you have recurrence since she will be off the hydrochlorothiazide. I will defer that question to Dr. Jennings. Since it is believed that you do not have an infection based on the fact that we have identified that this intense flare-up of inflammation was due to gout and you had had a dramatic improvement in her symptoms on the steroids, I am not going to send her home with antibiotics. The cultures will take 6 days before they will be deemed negative as the final result. I will keep an eye on the culture results and if growth occurs on 1 of the culture plates I will let you know and we will act accordingly on that new information. I believe that infection is unlikely in this instance. You may wish to use the walker consistently to keep your symptoms minimized. If your symptoms dramatically worsen he will have to call me and that will raise the question of whether this could be an infection and since returning to your normal activities may cause her knee to flare, that will introduce the dilemma of not knowing whether the flare-up is due to year overactivity or possibly due to an infection that we did not believe you had that actually is present. For this reason, avoid causing her knee to become painful by too much activity as that will complicate the workup process and evaluation. Patient Instructions: Antibiotic Form Patient Language: Frisian Stand Alone Forms: General Discharge Information Follow-up/Referrals: Dario Jennings MD [Primary Care Provider] - 1 Week Gary Nava MD [Physician] - 07/02/24 Discharge Medications: New colchicine [Colcrys] 0.6 mg Tablet 0.6 mg PO DAILY Qty: 30 0RF prednisone 10 mg tablet 10 mg PO DIRECTED Qty: 6 0RF Rx Instructions: Take a 10 mg tablet with dinner, a 10 mg tablet with breakfast on Friday and dinner Friday, then a 10 mg tablet Friday and Bhumika morning and then Friday resume the meloxicam. I have included an extra dose if needed on Friday or Friday Continued omega-3 fatty acids 500 mg capsule 500 mg PO DAILY testosterone cypionate 200 mg/mL oil 80 mg IM 2XW tadalafil 20 mg tablet 20 mg PO DAILY PRN (Reason: sexual activity) amlodipine 10 mg tablet 10 mg PO DAILY magnesium 500 mg Tablet 500 mg PO BID cyanocobalamin (vitamin B-12) [Vitamin B-12] 1,000 mcg Tablet 1,000 mcg PO BID calcium carbonate-vitamin D3 [Calcium with Vitamin D] 600 mg-10 mcg (400 unit) Tablet 1 tablet PO DAILY ascorbic acid (vitamin C) 500 mg Capsule 500 mg PO BID Daily Multiple For Men 1 tab-cap PO DAILY famotidine 40 mg tablet 40 mg PO DAILY TUMERIC 500 mg PO BID Held meloxicam 15 mg tablet 15 mg PO DAILY Hold Instructions: Resume on 06/30/24. Discontinued hydrochlorothiazide 25 mg tablet 25 mg PO DAILY Date of admission: 06/24/24 12:27 Primary Care Provider: Dario Jennings Admitting Provider: Gary Nava Attending physician on admission: Gary Nava Condition: Stable
[2024-06-29 14:28] LABS: Anti Cyclic Citrullinated Pept <16 UNITS
--- OUTSIDE RECORDS SUMMARY | 2024-06-30 22:07 | XMS_ITS | Encounter Summary ---
Author Organization [facility] Address [facility]. [place], [place] [address] [place] [address] Care Team Providers Care Furnishings Conservator Name Role Phone Dario Jennings MD Primary Care Provider [phone] Reason for Referral * Procedure (Routine) - Authorized Specialty Diagnoses / Procedures Referred By Tom gaines Referred To Contact Diagnoses Bilateral carpal tunnel syndrome Procedures NCVS\EMG (Hosp Performed) Rainer Aguilar MD [address] [place] [address] Phone: tel: fax: Rainer Aguilar MD [address] [place], [place] [address] Phone: tel: fax: Referral ID Status Reason Start Date Expiration Date Visits Requested Visits Authorized [id number] Authorized Office Procedure 05/27/2024 05/27/2025 1 1 ARCH SUPPORT SPECIALIST Reason for Visit * Reason Comments Establish Care Numbness Tingling * Consultation/Treatment (Routine) - New Request Specialty Diagnoses / Procedures Referred By Tom gaines Referred To Contact NEUROLOGY Diagnoses Carpal tunnel syndrome Greg Wade, KAN [address] [address] Phone: tel: fax: Rainer Aguilar MD [address] [facility] [address] [place] [address] Phone: tel: fax: Referral ID Status Reason Start Date Expiration Date V isits Requested Visits Authorized [id number] New Request 01/02/2024 1 1 Encounter Details Date Type Department Care Team (Late st Contact Info) Description 05/27/2024 9:00 AM RESEARCH SUPPORT SPECIALIST Office Visit [facility] [place] [address] [facility] [address] [place] [phone] Rainer Aguilar MD [address] [place], [place] [id number] Establish Care; Numbness; Tingling Social History Tobacco Use Types Packs/Day Years Used Date Smoking Tobacco: Never Smokeless Tobacco: Never Tobacco Cessation:Counseling Given: Not Answered Alcohol Use Standard Drinks/Week Comments Not Currently 0 (1 standard drink = 0.6 oz pur e alcohol) Sex and Gender Information Value Date Recorded Sex Assigned at Not on file Legal Sex Male 9:52 AM CDT Gender Identity Not on file Sexual Orientation Not on file documented as of this encounter Last Filed Vital Signs Vital Sign Reading Time Taken Comments Blood Pressure 157/78 05/27/2024 8:59 AM RESEARCH SUPPORT SPECIALIST Pulse 59 05/27/2024 8:59 AM RESEARCH SUPPORT SPECIALIST Temperature 37.2 ??C (99 ??F) 05/27/2024 8:59 AM RESEARCH SUPPORT SPECIALIST Respiratory Rate - - Oxygen Saturation 97% 05/27/2024 8:59 AM RESEARCH SUPPORT SPECIALIST Inhaled Oxygen Concentration - - Weight 79.4 kg (175 lb) 05/27/2024 8:59 AM RESEARCH SUPPORT SPECIALIST Height 177.8 cm (5' 10 ) 05/27/2024 8:59 AM RESEARCH SUPPORT SPECIALIST Body Mass Index 25.11 05/27/2024 8:59 AM RESEARCH SUPPORT SPECIALIST documented in this encounter Progress Notes * Rainer Aguilar MD - 05/27/2024 9:00 AM CST Chief Complaint: numbness and tingling HPI: We had the pleasure of seeing Mr. Norwood in the clinic. He is here for numbness and tingling. 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 He has neck pain on and off. He has knee issues, and is about to undergo knee replacement. He also has shoulder pain, and reducedrange of movement in the right shoulder. On the background of this, he has not numbness and tingling in the hand. It is worse in the first 3 digits of the hands bilaterally left worse than right. Thesymptoms started on the left hand, then has moved to the right hand. Symptoms wake him up at night.He has lost sensation in the tips of the finger. He has also noticed weakness of the hand, and he drops things. There is no color change or temperature in the hand. There is no neck pain going down to the hand. He has tried therapy without much benefit. He has never had EMG. He denies any numbness or tingling in the feet. He has no significant low back pain. There is no bulbar symptoms. There is no constitutional symptoms. There is no autonomic symptoms. There is no bowel bladder issues. Review of Systems Gen: denies recent fever Eyes: denies double vision ENT: denies epistaxis Pulm: denies shortness of breath Cardiac: denies Chest pain Musc: denies back pain Heme: denies easy bruising Neuro: See HPI Current Outpatient Medications Medication Sig Dispense Refill amLODIPine (NORVASC) 10 MG tablet Calcium Carb-Cholecalciferol 500-10 MG-MCG Chew Tab Chew 1 tablet by mouth daily. [id number] 3-Phytosterols (BP VIT 3) 1 MG Cap Take by mouth famotidine (PEPCID) 40 MG tablet hydroCHLOROthiazide (HYDRODIURIL) 25 MG tablet TAKE ONE TABLET BY MOUTH DAILY NEEDED FOR EDEMA LUTEIN OR Take by mouth meloxicam (MOBIC) 15 MG tablet Pyridoxine 100 MG tablet Take 1 tablet (100 mg total) by mouth daily. tadalafil (CIALIS) 20 MG tablet Take 1 tablet (20 mg total) by mouth daily. testosterone cypionate (DEPO TESTOSTERONE) 200 MG/ML injection INJECT TWICE WEEKLY 80MG/0.4ML INTRAMUSCULARLY ON FRIDAY AND FRIDAY. vitamin B-12 (CYANOCOBALAMIN) 500 MCG tablet Take 1 tablet (500 mcg total) by mouth daily. vitamin C (ASCORBIC ACID) 500 MG tablet No current facility-administered medications for this visit. Filed Vitals: 05/27/24 0859 BP: (!) 157/78 Pulse: (!) 59 Temp: 99 ??F (37.2 ??C) SpO2: 97% Weight: 79.4 kg (175 lb) Height: 1.778 m (5' 10 ) History reviewed. No pertinent past medical history. History reviewed. No pertinent surgical history. No family history on file. Social History Tobacco Use Smoking status: Never Smokeless tobacco: Never Vaping Use Vaping status: Never Used Substance Use Topics Alcohol use: Not Currently Drug use: Never MENTAL STATUS: Patient was alert, awake and oriented x3, regards and follows commands. Normal language. CRANIAL NERVES: II: Pupils were equal, round and reactive to light III, IV, : normal extraocular movements, V: Normal jaw closure and opening. VII: face was symmetric. Eye closure and lip closure were normal. VIII: hearing was normal. IX-X: palate elevates at midline. XI: normal symmetric shoulder shrug. XII: tongue was midline and strong. No fasciculations. MOTOR: Strength is at least 3-4 out of 5 diffusely bilaterally in the upper and lower limb, however limited to examination in the right upper limb proximally, as well as in the lower limb. He has sensory dysesthesia, and reduced sensation to temperature along the median nerve distribution bilaterally. There is positive Tinel sign at the wrist. COORDINATION: Absent dysmetria on finger -nose -finger. No tremor. GAIT: Antalgic. Stooped over REFLEXES: Normal 2+/4 in upper and lower extremities. Stark's negative. Impression and Plan: In summary Mr. Norwood has numbness and tingling in the median nerve distribution bilaterally left worse than right. While he has neck pain, symptoms are mostly worse at night, and waking up at night with him having to shake the symptoms off. 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 I discussed treatment options with him. He notes that previously he has done therapy without much benefit. I will do nerve conduction EMG to assess the severity of carpal tunnel syndrome. Nerve conduction EMG will also help to rule out a superimposed cervical radiculopathy. Based on that, he will benefit from seeing our hand specialist for a possible carpal tunnel release. He is okay to pursue this. In the meantime I have asked him to wear carpal tunnelbrace. He will buy this [id number]. I noted to him stress, fatigue, lack of sleep can flareupthe symptoms. In addition cold weather, and overuse can also flareup the symptoms. He also has shoulder pain worse on the right, with limitation of range of movement. I have offered referral to shoulder specialist. He will think about this and let me know. I will see him back in the EMG lab for assessing carpal tunnel syndrome. Time spent: 50 total minutes reviewing records, history that was separately obtained, performing the exam, providing education to the patient/caregiver, ordering medicine and documenting in the medical record. RAINER AGUILAR MD ARCH SUPPORT SPECIALIST ARCH SUPPORT SPECIALIST documented in this encounter Plan of Treatment Upcoming Encounters Date Type Department Care Team (Late st Contact Info) Description 07/05/2024 8:00 AM RESEARCH SUPPORT SPECIALIST Office Visit [facility] Medical Group Multispecialty Care - [facility] [address] [facility], [address] [place] [address] Rainer Aguilar MD [address] [place] [address] Scheduled Orders Name Type Priority Associated Diagnoses Orde r Schedule NCVS\EMG (Hosp Performed) Neurology Routine Bilateral carpal tunnel syndrome Expected: 05/27/2024, Expires: 05/27/2025 documented as of this encounter Visit Diagnoses Diagnosis Bilateral carpal tunnel syndrome- Primary Carpal tunnel syndrome documented in this encounter Care Teams Furnishings Conservator Relationship Specialty Start Date End Date Dario Jennings MD [address] [place] [address] PCP - General FAMILY PRACTICE 01/08/24 documented as of this encounter
--- OUTSIDE RECORDS SUMMARY | 2024-06-30 22:07 | XMS_ITS | Encounter Summary ---
Author Organization [facility] Address [facility] [facility]. [place], [place] [address] [place] [address] Care Team Providers Care Stock Parts Inspector Name Role Phone Dario Jennings MD Primary Care Provider [phone] Encounter Details Date Type Department Care Team (Latest Contact Info) Description 05/27/2024 Travel Social History Tobacco Use Types Packs/Day Years Used Date Smoking Tobacco: Never Smokeless Tobacco: Never Alcohol Use Standard Drinks/Week Comments Not Currently 0 (1 standard drink = 0.6 oz pur e alcohol) Sex and Gender Information Value Date Recorded Sex Assigned at Not on file Legal Sex Male 9:52 AM CDT Gender Identity Not on file Sexual Orientation Not on file documented as of this encounter Plan of Treatment Upcoming Encounters Date Type Department Care Team (Late st Contact Info) Description 07/05/2024 8:00 AM MANAGER REPORT Office Visit [facility] Medical Group Multispecialty Care - [facility] [address] [facility], [address] [place] [phone] Rainer Aguilar MD 3 [place] [address] documented as of this encounter Visit Diagnoses Not on filedocumented in this encounter Care Teams Stock Parts Inspector Relationship Specialty Start Date End Date Dario Jennings MD [address] [place] [address] PCP - General FAMILY PRACTICE 01/08/24 documented as of this encounter
--- OUTSIDE RECORDS SUMMARY | 2024-06-30 22:07 | XMS_ITS | Clinical Summary ---
Author Organization [facility] Address [facility]. [place], [place] [address] [place] [address] Care Team Providers Care Motorboat Mechanic Inboard Name Role Phone Dario Jennings MD Primary Care Provider [phone] Allergies Active Allergy Reactions Criticality Noted Date Comments [place] Flavoring Agent (Non-Screening) Swelling 05/27/2024 Poison Myrna Extract Other (see comment) 05/27/20 Swelling Medications amLODIPine (NORVASC) 10 MG tablet 04/14/20 24 Active vitamin C (ASCORBIC ACID) 500 MG tablet Active Calcium Carb-Cholecalc iferol 500-10 MG-MCG Chew Tab Chew 1 tablet by mouth daily. Active vitamin B-12 (CYANOCOBALAMI N) 500 MCG tablet Take 1 tablet (500 mcg total) by mouth daily. Active [id number]-Omeg a 3-Phytosterols (BP VIT 3) 1 MG Cap Take by mouth Active famotidine (PEPCID) 40 MG tablet 04/14/20 24 Active hydroCHLOROthi azide (HYDRODIURIL) 25 MG tablet TAKE ONE TABLET BY MOUTH DAILY NEEDED FOR EDEMA 04/26/20 24 Active LUTEIN OR Take by mouth Active meloxicam (MOBIC) 15 MG tablet 04/14/20 24 Active Pyridoxine 100 MG tablet Take 1 tablet (100 mg total) by mouth daily. Active tadalafil (CIALIS) 20 MG tablet Take 1 tablet (20 mg total) by mouth daily. 03/29/20 24 Active testosterone cypionate (DEPO TESTOSTERONE) 200 MG/ML injection INJECT TWICE WEEKLY 80MG/0.4ML INTRAMUSCULARLY ON FRIDAY AND FRIDAY. 05/19/20 24 Active Active Problems Problem Noted Date Diagnosed Date Bilateral impacted cerumen 09/17/2022 Tinnitus of both ears 09/17/2022 Encounters Date Type Department Care Team Description 05/27/2024 9:00 AM ECHOCARDIOGRAPHY RADIOLOGY TECHNOLOGIST Office Visit [facility] Medical [facility] Neurology Speciality Clinic - [address] [place] [phone] Rainer Aguilar MD Establish Care; Numbness; Tingling 05/27/2024 Travel from Last 3 Months Social History Tobacco Use Types Packs/Day Years [...] on file Sexual Orientation Not on file Last Filed Vital Signs Vital Sign Reading Time Taken Comments Blood Pressure 157/78 05/27/2024 8:59 AM ECHOCARDIOGRAPHY RADIOLOGY TECHNOLOGIST Pulse 59 05/27/2024 8:59 AM ECHOCARDIOGRAPHY RADIOLOGY TECHNOLOGIST Temperature 37.2 ??C (99 ??F) 05/27/2024 8:59 AM ECHOCARDIOGRAPHY RADIOLOGY TECHNOLOGIST Respiratory Rate - - Oxygen Saturation 97% 05/27/2024 8:59 AM ECHOCARDIOGRAPHY RADIOLOGY TECHNOLOGIST Inhaled Oxygen Concentration - - Weight 79.4 kg (175 lb) 05/27/2024 8:59 AM ECHOCARDIOGRAPHY RADIOLOGY TECHNOLOGIST Height 177.8 cm (5' 10 ) 05/27/2024 8:59 AM ECHOCARDIOGRAPHY RADIOLOGY TECHNOLOGIST Body Mass Index 25.11 05/27/2024 8:59 AM ECHOCARDIOGRAPHY RADIOLOGY TECHNOLOGIST Plan of Treatment Upcoming Encounters Date Type Department Care Team (Late st Contact Info) Description 07/05/2024 8:00 AM ECHOCARDIOGRAPHY RADIOLOGY TECHNOLOGIST Office Visit [facility] Medical [facility] Multispecialty Care - [facility] [address] [facility], [address] [place] [phone] Rainer Aguilar MD [address] [place], [place] [id number] Health Maintenance Due Date Last Done Comments Colorectal Cancer Screening Colonoscopy (10 Years) 1950 Hepatitis C 02/20/1968 DTaP, Tdap and Td Vaccines ( 1 - Tdap) 1969 Zoster Vaccines (1 of 2) 02/20/2000 Annual Medicare Wellness Visit 2015 Pneumococcal Vaccine: 65+ Years (1 of 1 - PCV) 2015 COVID-19 Vaccine (3 - 2023-2 5 season) 2024 10/31/2020, 10/10/2020 Influenza Adult (#1) 2024 RSV Immunization or 60+ Years (1 - 1-dose 75+ series) 2025 Meningococcal Vaccine Aged Out No eze everett eligible based on patient's age to complete this topic RSV Immunizations Under 20 Months Aged Out No longer eligible b ased on patient's age to complete this topic Insurance [employer] Care Teams Motorboat Mechanic Inboard Relationship Specialty Start Date End Date Dario Jennings MD [address] [place] [address] PCP - General FAMILY PRACTICE 01/08/24
--- OUTSIDE RECORDS SUMMARY | 2024-06-30 22:08 | XMS_ITS | Encounter Summary ---
Author Organization [facility] Address [address] [place] [address] Phone Care Team Providers Care Blade Boner Name Role Phone Dario Jennings MD Primary Care Provider [phone] Reason for Visit * Reason Comments Ear Problem Needs ears cleaned Encounter Details Date Type Department Care Team (Late st Contact Info) Description 09/17/2022 8:30 AM CDT Office Visit [facility] Otolaryngology [address] [place] [phone] Rand Tran, DIESEL TRACTOR OPERATOR [address] [place] [id number] Bilateral impacted cerumen (Primary Dx); Tinnitus of both ears Social History Tobacco Use Types Packs/Day Years Used Date Smoking Tobacco: Never Smokeless Tobacco: Never Tobacco Cessation:Counseling Given: Not Answered Sex and Gender Information Value Date Recorded Sex Assigned at Not on file Legal Sex Male 2:37 PM CDT Gender Identity Not on file Sexual Orientation Not on file documented as of this encounter Last Filed Vital Signs Vital Sign Reading Time Taken Comments Blood Pressure - - Pulse - - Temperature - - Respiratory Rate 18 09/17/2022 8:16 AM CDT Oxygen Saturation - - Inhaled Oxygen Concentration - - Weight 78.5 kg (173 lb) 09/17/2022 8:16 AM CDT Height 180.3 cm (5' 11 ) 09/17/2022 8:16 AM CDT Body Mass Index 24.13 09/17/2022 8:16 AM CDT documented in this encounter Progress Notes * Rand Tran, DIESEL TRACTOR OPERATOR - 09/17/2022 8:30 AM CDT Roberto Norwood was seen in the office today. Primary care provider is Dario Jennings MD . Chief Complaint: Roberto Norwood is a 72 y.o. male with complaints of: Chief Complaint Patient presents with Ear Problem Needs ears cleaned . HPI: He comes to clinic today for evaluation of cerumen impaction. He denies having any trouble hearing. He does report occasional rare tinnitus bilaterally. He denies any otalgia, otorrhea, or dizziness. He does report using Q-tips to clean his ear. Denies any chronic history of ear infections. Denies any chronic sinus or seasonal allergy problems. He does report having some hearing loss in his family but feels like it is age-related. 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 Does have a history of hypertension.He denies ever using tobacco products. Denies any recent fever, vision changes, dysphagia, chest pain, shortness of breath, nausea, muscle weakness or fatigue, rash, headache, heat or cold intolerance, hematuria, or easily bruising. Subjective: See HPI Past Medical/Surgical History Past Medical History: Diagnosis Date Ear problems HL (hearing loss) Hypertension Past Surgical History: Procedure Laterality Date BIOPSY Left shoulder HAND SURGERY Left TONSILLECTOMY Past Family/Social History Family History Problem Relation Age of Onset Cancer Mother Cancer Father Cancer Sister Diabetes Brother Cancer Brother Social History Tobacco Use Smoking status: Never Smokeless tobacco: Never Substance and Sexual Activity Drug use: Yes Types: Alcohol Sexual activity: None Alcohol Use: Not on file Medications/Allergies/Immunizations Current Outpatient Medications Medication Sig Dispense Refill amLODIPine (NORVASC) 5 mg tablet Take 5 mg by mouth daily ascorbic acid (ascorbic acid with crys hips) 500 mg tablet,chewable calcium carbonate-vitamin D3 (Calcium 500 + D) 1,250 mg (500 mg elemental)-400 unit chewable tabletTake 1 tablet by mouth daily cyanocobalamin (Vitamin B-12) 500 mcg tablet Take 500 mcg by mouth daily meloxicam (MOBIC) 15 mg tablet Take 15 mg by mouth daily xdjdwqtetunt-lqkybnno-xxvzhl (Multivitamin 50 Plus) tablet Take by mouth om 8-mpy-mou-L90-HM-K5-xomifnn 500 mg-500 mcg -1 mg-12.5 mg capsule Take by mouth pyridoxine (VITAMIN B-6) 100 mg tablet Take 100 mg by mouth daily tadalafiL (CIALIS) 20 mg tablet TAKE 1 TABLET BY MOUTH NEEDED FOR SEXUAL INTERCOURSE testosterone cypionate (DEPO-TESTOTERONE) 200 mg/mL injection INJECT 0.5ML INTRAMUSCULARLY TWICE (FRIDAY AND FRIDAY) A WEEK FOR 12 WEEKS. (200MG TOTAL PER WEEK) No current facility-administered medications for this visit. Allergies: Patient has no known allergies., Immunizations: Immunization History Administered Date(s) Administered Pfizer SARS-CoV-2 Vaccination (12+ yrs) PURPLE 10/10/2020, 10/31/2020 Review of Systems See HPI Vital Signs: Vitals Resp 18 Ht 180.3 cm (5' 11 ) Wt 78.5 kg (173 lb) BMI 24.13 kg/m?? PHYSICAL EXAMINATION: Physical Exam Constitutional: General: He is not in acute distress. HENT: Head: Normocephalic and atraumatic. Jaw: No tenderness or pain on movement. Salivary Glands: Right salivary gland is not diffusely enlarged or tender. Left salivary gland is not diffusely enlarged or tender. Right Ear: Ear canal and external ear normal. There is impacted cerumen. Left Ear: Tympanic membrane, ear canal and external ear normal. There is impacted cerumen. Nose: No signs of injury, mucosal edema, congestion or rhinorrhea. Right Sinus: No maxillary sinus tenderness or frontal sinus tenderness. Left Sinus: No maxillary sinus tenderness or frontal sinus tenderness. Mouth/Throat: Lips: [place]. No lesions. Mouth: Mucous membranes are moist. No oral lesions. Tongue: No lesions. Tongue does not deviate from midline. Pharynx: Uvula midline. No pharyngeal swelling or posterior oropharyngeal erythema. Comments: Tonsils are surgically absent Eyes: Extraocular Movements: Extraocular movements intact. Conjunctiva/sclera: Conjunctivae normal. Pulmonary: Effort: Pulmonary effort is normal. No respiratory distress. Musculoskeletal: General: Normal range of motion. Cervical back: Normal range of motion and neck supple. No muscular tenderness. Lymphadenopathy: Cervical: No cervical adenopathy. Skin: General: Skin is warm and dry. Neurological: Mental Status: He is alert and oriented to person, place, and time. Cranial Nerves: No cranial nerve deficit. Motor: No weakness. Psychiatric: Mood and Affect: Mood normal. Behavior: Behavior normal. Cerumen removal counseling: A cerumen impaction is defined as a wax build up in the ear canal. A small mount of wax in the ear canal is normal and protective. In some cases, the build up may cause obstruction of the canal, which may lead to hearing loss, trapped water in the canal, ringing of the ear, or infection. The wax may be removed with various solutions such as eardrops, or may be physically removed by a medical provider. Cerumen debridement is usually performed in the office with out anesthesia. The ear canal is examined with an otoscope or a microscope and the wax is removed with a combination of instruments until clear. Risks of the procedure include ear pain, bleeding, infection, recurrent wax impaction, hearing loss, or tympanic membrane perforation, among others. After counseling we decided on cerumen debridement. Procedure: Patient was positioned supine and an otoscope was used to examine the auditory canals. Cerumen was noted to the bilateral EAC. Cerumen was removed from the left EAC using suction. Bilateral ear canals are moderately stenosed the left Tympanic membrane is intact following the procedure. Auditory canals are without edema or erythema. I was unable to remove cerumen from the right EAC is hard and impacted against his tympanic membrane Patient tolerated the procedure without difficulty. ASSESSMENT & PLAN Problem List Items Addressed This Visit ENT Tinnitus of both ears Bilateral impacted cerumen - Primary Roberto is a 72-year-old male who presents to the office today for cerumen impaction and ear check. I was able to remove the cerumen from the left EAC but the cerumen in the right EAC is hard and impacted. I recommend that he use some wax softening drops and return. He reports that he will use the drops and irrigate his ear but he does not want to schedule a follow-up. He states he will call me ifhe is ear started hurting or if he loses his hearing. We discussed protecting his hearing from loudnoises by using appropriate ear protection when needed. I did recommend an audiogram but he would just like to go to a freestanding clinic or [facility]'s and not make an appointment. We discussed the importance of not using Q-tips down in the canal of the ear. Verbalizes understanding and agrees with thetreatment plan. He was instructed to call the office with any questions, concerns, or problems. Rand Tran NP This note was created in part with the assistance of [employer] voice recognition software. Size Cutter variances may occur. documented in this encounter Plan of Treatment Not on file documented as of this encounter Visit Diagnoses Diagnosis Bilateral impacted cerumen- Primary Impacted cerumen Tinnitus of both ears Unspecified tinnitus documented in this encounter Historical Medications * This list may reflect changes made after this encounter. multivitamin-mi nerals-lutein (Multivitamin 50 Plus) tablet Take by mouth pyridoxine (VITAMIN B-6) 100 mg tablet Take 100 mg by mouth daily ascorbic acid (ascorbic acid with crys hips) 500 mg tablet,chewable cyanocobalamin (Vitamin B-12) 500 mcg tabletIndicatio ns:Prevention of Vitamin B12 Deficiency Take 500 mcg by mouth daily calcium carbonate-vitam in D3 (Calcium 500 + D) 1,250 mg (500 mg elemental)-400 unit chewable tablet Take 1 tablet by mouth daily om 6-fwo-dwx-B12-F Q-A0-aueqwkn 500 mg-500 mcg -1 mg-12.5 mg capsule Take by mouth amLODIPine (NORVASC) 5 mg tablet Take 5 mg by mouth daily tadalafiL (CIALIS) 20 mg tablet TAKE 1 TABLET BY MOUTH NEEDED FOR SEXUAL INTERCOURSE 07/03/2022 testosterone cypionate (DEPO-TESTOTERO NE) 200 mg/mL injection INJECT 0.5ML INTRAMUSCULARLY TWICE (FRIDAY AND FRIDAY) A WEEK FOR 12 WEEKS. (200MG TOTAL PER WEEK) 07/13/2022 meloxicam (MOBIC) 15 mg tablet Take 15 mg by mouth daily 08/19/2022 added in this encounter Care Teams Blade Boner Relationship Specialty Start Date End Date Dario Jennings MD PCP - General Family Medicine 09/10/22 documented as of this encounter
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
--- OUTSIDE RECORDS SUMMARY | 2024-06-30 22:08 | XMS_ITS | Clinical Summary ---
Author Organization [facility] [address] Address [address] [place] [address] Care Team Providers Care Front Elevator Operator Name Role Phone Dario Jennings MD Primary Care Provider [phone] Allergies No known active allergies Medications meloxicam (MOBIC) 15 mg tablet Take 15 mg by mouth daily 08/19/19 23 Active testosterone cypionate (DEPO-TESTOTER ONE) 200 mg/mL injection INJECT 0.5ML INTRAMUSCULARLY TWICE (FRIDAY AND FRIDAY) A WEEK FOR 12 WEEKS. (200MG TOTAL PER WEEK) 07/13/19 23 Active tadalafiL (CIALIS) 20 mg tablet TAKE 1 TABLET BY MOUTH NEEDED FOR SEXUAL INTERCOURSE 07/03/19 23 Active amLODIPine (NORVASC) 5 mg tablet Take 5 mg by mouth daily Active om 6-grr-lzy-B12- XP-H7-xjxlynn 500 mg-500 mcg -1 mg-12.5 mg capsule Take by mouth Active calcium carbonate-michelle min D3 (Calcium 500 + D) 1,250 mg (500 mg elemental)-400 unit chewable tablet Take 1 tablet by mouth daily Active cyanocobalamin (Vitamin B-12) 500 mcg tabletIndicati ons:Prevention of Vitamin B12 Deficiency Take 500 mcg by mouth daily Active ascorbic acid (ascorbic acid with crys hips) 500 mg tablet,chewabl e Active pyridoxine (VITAMIN B-6) 100 mg tablet Take 100 mg by mouth daily Active multivitamin-m inerals-lutein (Multivitamin 50 Plus) tablet Take by mouth Active Active Problems Problem Noted Date Diagnosed Date Tinnitus of both ears 09/17/2022 Bilateral impacted cerumen 09/17/2022 Surgical History Surgery Date Site/Laterality Comments BIOPSY Left shoulder HAND SURGERY Left TONSILLECTOMY Medical History Medical History Date Comments Hypertension Ear problems HL (hearing loss) Family History Medical History Relation Name Comments Cancer Brother Diabetes Brother Cancer Father Cancer Mother Cancer Sister Relation Name Status Comments Brother Father Mother Sister Social History Tobacco Use Types Packs/Day Years Used Date Smoking Tobacco: Never Smokeless Tobacco: Never Tobacco Cessation:Counseling Given: Not Answered Personal Safety Answer Date Recorded Getting School Help Needed Not on file 08/23 Sex and Gender Information Value Date Recorded Sex Assigned at Not on file Legal Sex Male 2:37 PM CDT Gender Identity Not on file Sexual Orientation Not on file Obstetrics History Last Filed Vital Signs Vital Sign Reading Time Taken Comments Blood Pressure - - Pulse - - Temperature - - Respiratory Rate 18 09/17/2022 8:16 AM CDT Oxygen Saturation - - Inhaled Oxygen Concentration - - Weight 78.5 kg (173 lb) 09/17/2022 8:16 AM CDT Height 180.3 cm (5' 11 ) 09/17/2022 8:16 AM CDT Body Mass Index 24.13 09/17/2022 8:16 AM CDT Plan of Treatment Health Maintenance Due Date Last Done Comments Colon Cancer Screening-Colonoscopy 1950 Depression Screening 1950 Fall Risk Assessment 1950 Hepatitis C Screening 1950 DTaP/Tdap/Td Vaccine (1 - Tdap) 1961 Hepatitis B Screening 02/20/1968 Zoster Vaccine (1 of 2) 02/20/2000 Abdominal Aortic Aneurysm (AAA) Screen 2015 Pneumococcal vaccine 65+ (1 of 1 - PCV) 2015 Well Visit 65+ 2015 Covid-19 Vaccine (3 - season) 02/22/202404/2021, 10/10/2020 Influenza Vaccine (#1) 2024 Insurance [employer] CHOICE MEDICARE PPO Care Teams Front Elevator Operator Relationship Specialty Start Date End Date Dario Jennings MD PCP - General Family Medicine 09/10/22
--- OUTSIDE RECORDS SUMMARY | 2024-06-30 22:08 | XMS_ITS | Referral Summary ---
Author Organization [facility] [address] Address [address] [place] [address] Care Team Providers Care Automatic Pattern Edger Name Role Phone Dario Jennings MD Primary Care Provider [phone] Allergies No known active allergies Medications meloxicam [...] 5 mg by mouth daily Active om 1-oib-zad-B12- XD-Y5-ybxttpc 500 mg-500 mcg -1 mg-12.5 mg capsule [...] both ears 09/17/2022 Bilateral impacted cerumen 09/17/2022 Social History Tobacco Use Types Packs/Day Years [...] 09/17/2022 8:16 AM CDT Plan of Treatment Not on file Insurance [employer] CHOICE MEDICARE PPO Care Teams Automatic Pattern Edger Relationship Specialty Start Date End Date Dario Jennings MD PCP - General Family Medicine 09/10/22
== END 2024-06-26 13:42 | disposition home or self-care (01) | DRG 554 ==
LOC: ANH3MED 06-25 10:01 → ANHSURGERY 06-25 10:02 → ANH3MED 06-25 10:02
PROVIDERS: Nurse Practitioner Acute Care; Admitting Provider Orthopaedic Surgery; PCP Family Medicine; Visit Provider Orthopaedic Surgery
PROC: 0S9D3ZX Drainage of Left Knee Joint, Percutaneous Approach, Diagnostic (ICD-10-PCS; CPT 27447; principal; 2024-06-24 11:30)
DX: M10.062 Idiopathic gout, left knee (principal); M17.0 Bilateral primary osteoarthritis of knee; E86.0 Dehydration; I10 Essential (primary) hypertension; K21.9 Gastro-esophageal reflux disease without esophagitis; Z22.321 Carrier or suspected carrier of Methicillin susceptible Staphylococcus aureus
CPT/HCPCS: 36415; 80053; 80202; 82565; 84550; 85025; 85652; 86038; 86039; 86140; 86200; 86430; 86850; 86900; 86901; 87070; 87075; 87205; 89051; 89060; 97161; A9270; J0171; J0696; J1100; J1650; J1885; J2270; J2795; J3010; J3370; J7120

== ENCOUNTER 2024-07-21 08:29 | Outpatient (CLI) | payer MEDICARE, SELFPAY ==
--- OUTSIDE RECORDS SUMMARY | 2024-07-21 01:38 | XMS_ITS | Clinical Summary ---
Author Organization [facility] Address [facility]. [place], [place] [address] [place] [address] Care Team Providers Care Delivery Driver/Supervisor Name Role Phone Dario Jennings MD Primary Care Provider + [phone] Allergies Active Allergy Reactions Criticality Noted Date Comments [place] Flavoring Agent (Non-Screening) Swelling 05/27/2024 Poison Myrna Extract Other (see comment) 05/27/20 Swelling Medications amLODIPine (NORVASC) 10 MG tablet 04/14/20 24 Active vitamin C (ASCORBIC ACID) 500 MG tablet Active Calcium Carb-Cholecalc iferol 500-10 MG-MCG Chew Tab Chew 1 tablet by mouth daily. Active vitamin B-12 (CYANOCOBALAMI N) 500 MCG tablet Take 1 tablet (500 mcg total) by mouth daily. Active IB-W0-Y40-Omeg a 3-Phytosterols (BP VIT 3) 1 MG [...] ON FRIDAY AND FRIDAY. 05/19/20 24 Active celecoxib (CELEBREX) 200 MG capsule TAKE 1 CAPSULE BY MOUTH DAILY. START TAKING CELEBREX 7 DAYS BEFORE SURGERY AND STOP THE MELOXICAM 7 DAYS BEFORE SURGERY 07/04/19 25 Active colchicine 0.6 MG tablet Take 1 tablet (0.6 mg total) by mouth daily. 06/26/19 25 Active Active Problems Problem Noted Date Diagnosed Date Primary hypertension 07/15/2024 Gout 07/15/2024 Arthralgia of both knees 02/12/2023 Bilateral impacted cerumen 09/17/2022 Tinnitus of both ears 09/17/2022 Encounters Date Type Department Care Team Description 07/15/2024 10:00 AM DIRECTOR BIOMEDICAL ENGINEERING Office Visit [facility] Orthopedic & Sports Medicine - [address] [address] Ignacio Ramos, I&C TECH New Patient (Bilateral CTS, Left cubital tunnel) 07/15/2024 Travel 07/07/2024 Telephone [facility] - [address], [address] [place] [address] Rainer Aguilar MD Results 07/06/2024 Telephone [facility] - [address], [address] [place] [address] Rainer Aguilar MD Results 07/05/2024 3:00 PM DIRECTOR BIOMEDICAL ENGINEERING Office Visit [facility] - [address], [address] [place] [phone] Rainer Aguilar MD EMG Testing (BUE*BILATERAL CARPAL TUNNEL) 07/05/2024 Travel 05/27/2024 9:00 AM DIRECTOR BIOMEDICAL ENGINEERING Office Visit [facility] - [address] [place] [address] Rainer Aguilar MD Establish Care; Numbness; Tingling 05/27/2024 Travel from Last 3 Months Social History Tobacco Use Types Packs/Day Years Used Date Smoking Tobacco: Never Smokeless Tobacco: Never Tobacco Cessation:Counseling Given: No Alcohol Use Standard Drinks/Week Comments Not Currently 0 (1 standard drink = 0.6 oz pur e alcohol) Sex and Gender Information Value Date Recorded Sex Assigned at Male 07/15/2024 10:06 AM DIRECTOR BIOMEDICAL ENGINEERING Legal Sex Male 9:52 AM CDT Gender Identity Not on file Sexual Orientation Not on file Last Filed Vital Signs Vital Sign Reading Time Taken Comments Blood Pressure 119/72 07/15/2024 10:07 AM DIRECTOR BIOMEDICAL ENGINEERING Pulse 72 07/15/2024 10:07 AM DIRECTOR BIOMEDICAL ENGINEERING Temperature 37.4 ??C (99.3 ??F) 07/15/2024 10:[address] Respiratory Rate - - Oxygen Saturation 97% 05/27/2024 8:59 AM DIRECTOR BIOMEDICAL ENGINEERING Inhaled Oxygen Concentration - - Weight 84.2 kg (185 lb 9.6 oz) 07/15/2024 10:07 AM DIRECTOR BIOMEDICAL ENGINEERING Height 170.2 cm (5' 7 ) 07/15/2024 10:07 AM DIRECTOR BIOMEDICAL ENGINEERING Body Mass Index 29.07 07/15/2024 10:07 AM DIRECTOR BIOMEDICAL ENGINEERING Plan of Treatment Health Maintenance Due Date [...] 2024 10/31/2020, 10/10/2020 Influenza Adult (#1) 2024 PHQ-2 (Physician [place]) 06/23/2024 RSV Immunization or 60+ Years (1 - 1-dose 75+ series) 2025 Meningococcal B Vaccine Aged Out No l onger eligible based on patient's age to complete this topic Meningococcal Vaccine Aged Out No eze everett eligible based on patient's age to complete this topic RSV Immunizations Under 20 Months Aged Out No longer eligible b ased on patient's age to complete this topic Procedures Procedure Name Priority Date/Time Associated Diagnosis Comments EMG Routine 07/05/2024 3:00 PM DIRECTOR BIOMEDICAL ENGINEERING Bilateral carpal tunnel syndrome from Last 3 Months Results * NCVS\EMG (Hosp Performed) (07/05/2024 3:00 PM DIRECTOR BIOMEDICAL ENGINEERING) Narrative Rainer Aguilar MD - 07/05/2024 3:00 PM DIRECTOR BIOMEDICAL ENGINEERING Rainer Aguilar MD ? 07/05/2024 10:02 PM .Brief history: Mr. Norwood has numbness and tingling in the hand, he has been noticing weakness, and dropping things. 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 ??Symptoms are worse on the left as compared to right Limited Neurological Exam: He has wasting of the intrinsic hand muscles bilaterally, reflexes are 2+ bilaterally in upper limb. ??Stark's was negative bilaterally. ??Tinel's sign is positive at the wrist bilaterally, and at the elbow bilaterally. Electrodiagnostic testing: For sensory nerve conduction studies, the amplitude is measured [id number], the latency reported is the distal peak latency, and the conduction velocity, if measured, is determined from onset latencies and is over the forearm. For motor nerve conduction studies, the amplitude is measured [id number], the latency reported is the distal onset latency, the conduction velocity is calculated over the forearm, and the F wave latency is the minimum latency. Unless otherwise noted, the hand temperature was monitored continuously and remained between 32??C and 36??C during the performance of the NCSs.The study was performed with a concentric needle electrode. Fibrillation and fasciculation activity is graded from none (0) to continuous (4+). The configuration and recruitment pattern of motor unit action potentials under voluntary control, if not normal, are described below. Abbreviations: NCS= nerve conduction study SNAP= sensory nerve action potential CMAP= compound muscle action potential MUP= motor unit potential EMG= electromyogram F IBS= fibrillations PS W's= positive sharp waves .CTS severity scale: mild: prolonged sensory nerve conduction latency, normal distal motor latency; moderate: prolonged sensory latency and prolonged distal motor latency; severe: absent sensory latency, prolonged distal motor latency [place] PINO. A neurophysiological grading scale for carpal tunnel syndrome. Muscle Nerve. 1999;23(8):1280-3. ?? Ulnar neuropathy at elbow severity Mild UNE: Slowed ulnar motor NCV across the elbow, with normal SNAP Moderate UNE: Slowed ulnar motor NCV across the elbow, with reduced SNAP amplitude Severe UNE: Slowed ulnar motor NCV across the elbow, with absent SNAP in the 5th finger-wrist segment Brianna L, Alicja I, Tank O, Brianna R, Cristina E, Jun P, Brayan F, Charlotte P, Trish P. Neurophysiological classification of ulnar entrapment across the elbow. Neurol Sci. 2000;22(1):11-6. Summary of findings: Left median motor NCS is absent Right median motor NCS is absent The median nerve motor responses were underestimated due to inadequate stimulation. Left ulnar motor NCS shows a small CMAP amplitude and slowing across the elbow Right ulnar motor NCS is normal Bilateral median sensory NCS shows prolonged latency Bilateral ulnar sensory NCS shows small snap amplitude Left radial sensory NCS is normal Right radial sensory NCS shows small snap amplitude Right median and ulnar orthodromic mixed NCS shows prolonged latency and small amplitude Left median and ulnar orthodromic mixed NCS is absent Needle EMG of the left upper limb shows decreased insertional activity in the abductor pollicis brevis, first dorsal interosseous. 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 ??There is at least chronic moderate median mononeuropathy at the wrist [carpal tunnel syndrome] left worse than right. ??The median motor responses are underestimated as supramaximal stimulation could not be reached and thus the severity cannot be accurately assessed. ??There is no evidence of superimposed cervical radiculopathy. Nerve conduction and EMG is an extension of history and examination. ??Clinical correlation is recommended for the electrodiagnostic findings. ?? Rainer Aguilar MD NEUROLOGY ORDERABLES Yolanda l Result from Last 3 Months Insurance [employer] Care Teams Delivery Driver/Supervisor Relationship Specialty Start Date End Date Dario Jennings MD [address] [place], [place] [id number] PCP - General FAMILY PRACTICE 01/08/24
--- OUTSIDE RECORDS SUMMARY | 2024-07-21 01:38 | XMS_ITS | Referral Summary ---
Author Organization [facility] [address] [employer] Address [address] [place] [address] Care Team Providers Care Addictions Counselor Assistant Name Role Phone Dario Jennings MD Primary Care Provider [phone] Allergies No known active allergies Medications meloxicam [...] 5 mg by mouth daily Active om 5-xgy-dzi-B12- UT-Z8-lkiwhxy 500 mg-500 mcg -1 mg-12.5 mg capsule [...] Insurance [employer] CHOICE MEDICARE PPO Care Teams Addictions Counselor Assistant Relationship Specialty Start Date End Date Dario Jennings MD PCP - General Family Medicine 09/10/22
--- OUTSIDE RECORDS SUMMARY | 2024-07-21 01:38 | XMS_ITS | Data Portability ---
Author Organization [place] [facility], Main Office Address [address] [place] [address] Care Team Providers Care Powersaw Supervisor Name Role Phone CARISA JENNINGS Primary Care Provider CARISA JENNINGS Referring Provider [phone] Assessment Encounter Date Assessment Date Assessment LastModified by Organization Details LastModified Time 02/12/2023 02/12/2023 Impression: Patient has tricompartmental osteoarthritis of both knees severe iaht-gz-iqfm medial lateral compartment osteoarthritis each knee. His [...] very well in patients that have advanced twbg-sk-aeea arthritis is no longer get cortisone injections. This study show that it does better in patients kbdm-fc-iapfjyfo arthritis. I explained this is something I [...] will not help the knee that has avyf-jq-amrb arthritis as already has full-thickness cartilage loss [...] more than half the time spent in orji-tw-gbnm care. I am happy to see him [...] XR, knee 023 02/13/20 [email or web address] [facility] [place], [address], [place], [address], 09:28:49 Medication Orders None record ed. Patient TargetsNo targets recorded. Patient InstructionsNo instructions recorded. Reason for Referral None Reported. Results Created Date Observation Date Name Description Value Unit Range Abnormal Flag Note LastModifiedBy Organization Detail LastModifiedTime 02/13/20 XR, knee No observ ation record ed. [email or web address] [facility] [place] [address], [place], [address], 02/12/2023 19:41:22 Result Notes None recorded. Problems Name Problem SNOMED Code Status Onset Date Resolution Date Notes Provider Name and Address Organization Details Recorded Time Pain of bilateral knee joints [id number] 4 Active 2022 Selina HERBIE Guevara [employer] 09:07:44 Problem Notes None recorded. Procedures Surgical History None recorded. Imaging Results Imaging Date Name Status LastModified by Organiz ation Details LastModified Time 02/12/2023 XR, knee completed [email or web address] [facility] [place] [address], [place], [address], 02/12/2023 19:41:22 Procedure Notes None recorded. Medical [...] Updated DateTime 02/12/2023 172.72 cm 27.2 kg/m2 08019.03 g Selina Guevara TAMARAYonny [employer] 02/12/2023 09:09:51 Social History Question Answer Notes LastModified by Organizat ion Details LastModified Time Tobacco Smoking Status Never Smoker Selina Guevara TAMARAYonny cartagena [facility] 02/12/2023 09:07:00 What Is Your Level Of Alcohol Consumption? None [email or web address] Information not available 02/12/2023 Sex: Unknown Functional Status None recorded. Mental Status None recorded. Family History Relationship Description Onset Age of this Age Resolved Age Notes LastModified by Organization Details LastModified Time Father Family history of malignant neoplasm Not available 2022 09:06:53 Mother Family history of malignant neoplasm [email or web address] Not available 2022 09:06:53 Medical History Condition Response ARTHRITIS Y Past Encounters Encounter ID Performer Location Encounter Start Date Encounter Closed Date Diagnosis/Indication Diagnosis SNOMED-CT Code Diagnosis ICD10 Code Diagnosis Note [id number] Gary Nava MD [facility] [place] [address] [place] [address] 02/12/2023 08:42:04 02/13/2023 09:28:49 Pain of bilateral knee joints [id number] 17068 M25.561 M25.562 Health Concerns Section Related Observation LastModified by Organization Detai ls LastModified Time None Recorded Concern Status LastModified by Organization Details LastModified Time None Recorded Advance Directives Directive None Recorded Payers Encounter Date Sequence Insurance Name Policy Number Policy Tijerina Covered Member ID Tijerina Member ID Guarantor Name 02/12/2023 1 [employer] (MEDICARE REPLACEMENT/A DVANTAGE - HMO) Roberto Norwood [id number] Roberto Norwood Notes Date Note Type Note [...] remains very active. 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 Gary Nava MD [address] [place] [address], [place] [address], [place], [address], [place] [facility] 02/12/2023 19:47:17
--- OUTSIDE RECORDS SUMMARY | 2024-07-21 01:38 | XMS_ITS | Clinical Summary ---
Author Organization [facility] [address] [employer] Address [address] [place] [address] Care Team Providers Care Fresh Work Inspector Name Role Phone Dario Jennings MD Primary Care Provider [phone] Allergies No known active allergies Medications meloxicam [...] 5 mg by mouth daily Active om 1-stg-afr-B12- BV-F7-yxmtuay 500 mg-500 mcg -1 mg-12.5 mg capsule [...] Insurance [employer] CHOICE MEDICARE PPO Care Teams Fresh Work Inspector Relationship Specialty Start Date End Date Dario Jennings MD PCP - General Family Medicine 09/10/22
--- OUTSIDE RECORDS SUMMARY | 2024-07-21 08:53 | XMS_ITS | Referral Summary ---
Author Organization [facility] 19 [employer] Address [address] [place] [address] Care Team Providers Care Cardroom Plastic Card Grader Name Role Phone Dario Jennings MD Primary Care Provider [phone] Allergies No known active allergies Medications meloxicam [...] 5 mg by mouth daily Active om 7-wjs-doq-B12- OY-P4-ahzwzyz 500 mg-500 mcg -1 mg-12.5 mg capsule [...] Insurance [employer] CHOICE MEDICARE PPO Care Teams Cardroom Plastic Card Grader Relationship Specialty Start Date End Date Dario Jennings MD PCP - General Family Medicine 09/10/22
--- OUTSIDE RECORDS SUMMARY | 2024-07-21 08:53 | XMS_ITS | Clinical Summary ---
Author Organization [facility] [address] [employer] Address [address] [place] [address] Care Team Providers Care Mobility Architect Name Role Phone Dario Jennings MD Primary Care Provider [phone] Allergies No known active allergies Medications meloxicam [...] 5 mg by mouth daily Active om 5-ppa-dyf-B12- JD-L3-lvdfwbi 500 mg-500 mcg -1 mg-12.5 mg capsule [...] Insurance [employer] CHOICE MEDICARE PPO Care Teams Mobility Architect Relationship Specialty Start Date End Date Dario Jennings MD PCP - General Family Medicine 09/10/22
--- OUTSIDE RECORDS SUMMARY | 2024-07-21 08:53 | XMS_ITS | Clinical Summary ---
Author Organization [facility] Address [facility]. [place], [place] [address] [place] [address] Care Team Providers Care Spool Carrier Name Role Phone Dario Jennings MD Primary Care Provider + [phone] Allergies Active Allergy Reactions Criticality Noted Date Comments [place] Flavoring Agent (Non-Screening) Swelling 05/27/2024 Poison Myrna Extract Other (see comment) 05/27/20 Swelling Medications amLODIPine (NORVASC) 10 MG tablet 04/14/20 24 Active vitamin C (ASCORBIC ACID) 500 MG tablet Active Calcium Carb-Cholecalc iferol 500-10 MG-MCG Chew Tab Chew 1 tablet by mouth daily. Active vitamin B-12 (CYANOCOBALAMI N) 500 MCG tablet Take 1 tablet (500 mcg total) by mouth daily. Active TA-V0-Z67-Omeg a 3-Phytosterols (BP VIT 3) 1 MG [...] Department Care Team Description 07/15/2024 10:00 AM MANAGER PAYROLL Office Visit [facility] Orthopedic & Sports Medicine - [address] [address] Ignacio Ramos, ORDNANCE TECHNICIAN New Patient (Bilateral CTS, Left cubital tunnel) 07/15/2024 Travel 07/07/2024 Telephone [facility] - [address], [address] [place] [address] Rainer Aguilar MD Results 07/06/2024 Telephone [facility] - [address], [address] [place] [address] Rainer Aguilar MD Results 07/05/2024 3:00 PM MANAGER PAYROLL Office Visit [facility] - [address], [address] [place] [address] Rainer Aguilar MD EMG Testing (BUE*BILATERAL CARPAL TUNNEL) 07/05/2024 Travel 05/27/2024 9:00 AM MANAGER PAYROLL Office Visit [facility] - [address] [place] [address] Rainer Aguilar MD Establish Care; Numbness; Tingling 05/27/2024 Travel from Last 3 Months Social History Tobacco Use Types Packs/Day Years Used Date Smoking Tobacco: Never Smokeless Tobacco: Never Tobacco Cessation:Counseling Given: No Alcohol Use Standard Drinks/Week Comments Not Currently 0 (1 standard drink = 0.6 oz pur e alcohol) Sex and Gender Information Value Date Recorded Sex Assigned at Male 07/15/2024 10:06 AM MANAGER PAYROLL Legal Sex Male 9:52 AM CDT Gender Identity Not on file Sexual Orientation Not on file Last Filed Vital Signs Vital Sign Reading Time Taken Comments Blood Pressure 119/72 07/15/2024 10:07 AM MANAGER PAYROLL Pulse 72 07/15/2024 10:07 AM MANAGER PAYROLL Temperature 37.4 ??C (99.3 ??F) 07/15/2024 10:[address] Respiratory Rate - - Oxygen Saturation 97% 05/27/2024 8:59 AM MANAGER PAYROLL Inhaled Oxygen Concentration - - Weight 84.2 kg (185 lb 9.6 oz) 07/15/2024 10:07 AM MANAGER PAYROLL Height 170.2 cm (5' 7 ) 07/15/2024 10:07 AM MANAGER PAYROLL Body Mass Index 29.07 07/15/2024 10:07 AM MANAGER PAYROLL Plan of Treatment Health Maintenance Due Date [...] 10/10/2020 Influenza Adult (#1) 2024 PHQ-2 (Physician [place]) 06/23/2024 RSV Immunization or 60+ Years (1 [...] Diagnosis Comments EMG Routine 07/05/2024 3:00 PM MANAGER PAYROLL Bilateral carpal tunnel syndrome from Last 3 Months Results * NCVS\EMG (Hosp Performed) (07/05/2024 3:00 PM MANAGER PAYROLL) Narrative Rainer Aguilar MD - 07/05/2024 3:00 PM MANAGER PAYROLL Rainer Aguilar MD ? 07/05/2024 10:02 PM .Brief history: Mr. Norwood has numbness and tingling in the hand, he has been noticing weakness, and dropping things. 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 For motor nerve conduction studies, the amplitude is measured bzjdjfnj-[id number], the latency reported is the distal onset [...] absent sensory latency, prolonged distal motor latency [place] PINO. A neurophysiological grading scale for carpal [...] Last 3 Months Insurance HUMANA Care Teams Spool Carrier Relationship Specialty Start Date End Date Dario Jennings MD [address] [place], [place] [id number] PCP - General FAMILY PRACTICE 01/08/24
[2024-07-21 10:12] LABS: Basophils Percent Auto 0.5 % (0.2-1.2); Eosinophils Percent Auto 0.2 % (0-4.4); Hematocrit 44.2 % (42.0-52.0); Hemoglobin 14.9 g/dL (14.0-18.0); Immature Granulocyte Absolute 0.07 K/mm3 (0.00-0.031); Immature Granulocyte Percent A 0.9 % (0-0.5); Lymphocytes Absolute Auto 1.42 K/mm3 (0.9-3.2); Lymphocytes Percent Auto 17.4 % (18.3-44.2); Mean Corpuscular HGB Conc 33.7 g/dl (32-36); Mean Corpuscular Hemoglobin 29.7 pg (26-34); Mean Platelet Volume 10.1 fl (7.4-10.4); Monocytes Absolute Auto 0.6 K/mm3 (0.1-0.6); Platelet Count Result 233 k/mm3 (150-375); Red Blood Count 5.02 M/mm3 (4.6-6.20); Red Cell Distribution Width 13.9 % (11.5-14.5); White Blood Count 8.1 K/mm3 (4.5-10.0)
== END 2024-07-21 08:30 | disposition home or self-care (01) ==
LOC: ANHSURGERY 08:34
PROVIDERS: PCP Family Medicine; Visit Provider Orthopaedic Surgery
DX: Z01.812 Encounter for preprocedural laboratory examination (principal); M17.12 Unilateral primary osteoarthritis, left knee; M10.9 Gout, unspecified
CPT/HCPCS: 36415; 85025; 86850; 86900; 86901; 87081

== ENCOUNTER 2024-09-02 09:00 | Outpatient (RCR) | payer MEDICARE, SELFPAY ==
--- NOTE | 2024-08-02 10:59 | OPREHPOC ---
Outpatient Therapy Plan of Care This is a Multidisciplinary Plan of Care that may contain components documented by all disciplines (PT, OT, and ST.) PT Problem 1 PT Problem #1 Knowledge Deficit PT Goal 1 Goal / Goal Update [place] with HEP Target Visit 4 PT Goal 2 Goal / Goal Update Report no alfaro greater than 1/10 for 2 consecutive weeks Target Visit 8 PT Problem 2 PT Problem #2 Impaired Range of Motion PT Goal 1 Goal / Goal Update 1. Achieve terminal L knee ROM to improve terminal stance of gait 2. Achieve 125 degrees of Left knee flexion for functional bend improvement and foot clearence Target Visit 10 PT Problem 3 PT Problem #3 Impaired Strength PT Goal 1 Goal / Goal Update Improve gross L knee strength of 5/5 for stability Target Visit 10
--- NOTE | 2024-08-02 11:00 | PTOPEVAL1 ---
Assessment and note entered by Lyndon Ly, PT Evaluation Information Assessment Status Evaluation Diagnosis Left TKA ICD-10 Condition Codes (PT) Pain in left knee M25.562 Onset 07/26/2024 Subjective Information Patient was 30 minutes late for evaluation. Reports that he underwent TKA last week but had the flu and was unable to start therapy last week. Reports that he has typically used 2 canes in the house because it is tight. He has been feeling a lot of tightness in the knee and with the illness last week he did not push the exercises. Reports that he is sore today because he had to air up his tire on the way here. Reports that the pain he is currently having feels like he was hit in the knee with a baseball. Reports that prior to surgery he had a lot of stiffness in the knee. Reported Pain Level Pain Score 5: Self Report Assessment PT Clinical Summary Patient presents with signs and symptoms typical of TKA. Notable edema, ROM loss, and gait deviation. Strength seems retained. Patient will benefit form skilled therapy to address these deficits for tenriism of ROM, gait pattern and gross function. Patient appears motivated but will need reinforcement in post operative care and functional progression. Plan of Care Interventions Gait Training,Manual Therapy,Neuro Re-education, Therapeutic Activities,Therapeutic Exercise PT Services Indicated Yes Treatment Frequency and 2x/week for 10 visits Duration These treatments will address the objective and functional deficits as defined above. The patient will be advanced safely and appropriately in order for the patient to progress towards his/her prior level of function. Additional exercises will be introduced and as well as a comprehensive home exercise program upon discharge, if needed, ?to ensure carryover of functional gains achieved in the clinic. This treatment plan has been reviewed and agreement upon by the patient.
--- NOTE | 2024-09-02 09:58 | OPREHPOC ---
Outpatient Therapy Plan of Care This is a Multidisciplinary Plan of Care that may contain components documented by all disciplines (PT, OT, and ST.) PT Problem 1 PT Problem #1 Knowledge Deficit PT Goal 1 Goal / Goal Update [place] with HEP Target Visit 4 Progress Met PT Goal 2 Goal / Goal Update Report no alfaro greater than 1/10 for 2 consecutive weeks Target Visit 8 Progress Met PT Problem 2 PT Problem #2 Impaired Range of Motion PT Goal 1 Goal / Goal Update 1. Achieve terminal L knee ROM to improve terminal stance of gait 2. Achieve 125 degrees of Left knee flexion for functional bend improvement and foot clearence Target Visit 10 Progress Met PT Problem 3 PT Problem #3 Impaired Strength PT Goal 1 Goal / Goal Update Improve gross L knee strength of 5/5 for stability Target Visit 10 Progress Met
--- NOTE | 2024-09-02 09:58 | PTOPDC ---
Assessment and note entered by Lyndon Ly, PT Evaluation Information Assessment Status Discharge Diagnosis Left TKA ICD-10 Condition Codes (PT) Pain in left knee M25.562 Onset 07/26/2024 Subjective Information Reports that overall he has been doing much better . Left knee has come along very well. Feels that 99% of his problems at this time are in his right knee which he is hooping to have done soon. Reports that yesterday he did almost fall down the stair and is having some increased pain since then. Reported Pain Level Pain Score 0: Self Report Assessment PT Clinical Summary Patient has met all goals for therapy at this time . He has seen significant functional improvement in knee ROM and strength. Still hindered by structural issues of the right knee which affects functional progress at this time, but from an objective standpoint, left knee is doing very well with a gross ROM of 0-126 degrees. Plan of Care PT Services Indicated Yes
== END 2024-09-02 10:49 | disposition home or self-care (01) ==
LOC: ANHPT 09:00
PROVIDERS: PCP Family Medicine; Visit Provider Orthopaedic Surgery
DX: M17.0 Bilateral primary osteoarthritis of knee (principal); Z96.651 Presence of right artificial knee joint; Z47.1 Aftercare following joint replacement surgery
CPT/HCPCS: 97110; 97116; 97161; 97530

== ENCOUNTER 2024-09-12 22:13 | Emergency (ER) | payer MEDICARE, SELFPAY ==
--- NOTE | ~2024-09-12 | XR_ITS ---
EXAMINATION: XR chest 1V portable DATE: 09/13/2024 02:27 INDICATION: Symptomatic food bolus. TECHNIQUE: A single frontal view of the chest was obtained on 2 radiographs. COMPARISON: None. FINDINGS: There is no pneumonia, pleural effusion, or pneumothorax. The heart size is normal. IMPRESSION: 1. No acute cardiopulmonary disease. Reviewed, dictated and finalized at location A.
[2024-09-12 22:15] VITALS: BP 146/87; PULSE 64; RESP 18; TEMP 36.8; O2SAT 97
--- OUTSIDE RECORDS SUMMARY | 2024-09-12 22:16 | XMS_ITS | Clinical Summary ---
Author Organization [facility] [address] Address [address] [place] [address] Care Team Providers Care Lumber Carrier Name Role Phone Dario Jennings MD Primary Care Provider [phone] Allergies No known active allergies Medications meloxicam [...] 5 mg by mouth daily Active om 0-bqm-ccf-B12- ZZ-K7-atchags 500 mg-500 mcg -1 mg-12.5 mg capsule [...] - Tdap) 1961 Hepatitis B Screening 02/20/1968 Pneumococcal vaccine 65+ (1 of 1 - PCV) 02/20/2000 Zoster Vaccine (1 of 2) 02/20/2000 Abdominal Aortic Aneurysm (AAA) Screen 2015 Well Visit 65+ 2015 Covid-19 Vaccine ( season) 02/22/202404/2021, 10/10/2020 Influenza Vaccine (#1) 2024 Insurance [employer] CHOICE MEDICARE PPO Care Teams Lumber Carrier Relationship Specialty Start Date End Date Dario Jennings MD PCP - General Family Medicine 09/10/22
--- OUTSIDE RECORDS SUMMARY | 2024-09-12 22:16 | XMS_ITS | Data Portability ---
Author Organization [place] - [facility] [employer], Main Office Address [address] [place] [address] Care Team Providers Care Coin Teller Name Role Phone CARISA JENNINGS Primary Care Provider CARISA JENNINGS Referring Provider [phone] Assessment Encounter Date Assessment Date Assessment LastModified by Organization Details LastModified Time 02/12/2023 02/12/2023 Impression: Patient has tricompartmental osteoarthritis of both knees severe fiwp-nt-csgo medial lateral compartment osteoarthritis each knee. His [...] very well in patients that have advanced vmdx-hh-dynz arthritis is no longer get cortisone injections. This study show that it does better in patients zyvs-yu-ucfwxwvp arthritis. I explained this is something I [...] will not help the knee that has iulg-rg-hjwd arthritis as already has full-thickness cartilage loss [...] more than half the time spent in witz-rt-gmkg care. I am happy to see him [...] knee 023 02/13/20 [email or web address] [facility] [place], [address], [place], [address], 09:28:49 Medication Orders None record ed. Patient TargetsNo targets recorded. Patient InstructionsNo instructions recorded. Reason for Referral None Reported. Results Created Date Observation Date Name Description Value Unit Range Abnormal Flag Note LastModifiedBy Organization Detail LastModifiedTime 02/13/20 XR, knee No observ ation record ed. [email or web address] [facility] [place] [address], [place], [address], 02/12/2023 19:41:22 Result Notes None recorded. Problems Name Problem SNOMED Code Status Onset Date Resolution Date Notes Provider Name and Address Organization Details Recorded Time Pain of bilateral knee joints 42130600163186 4 Active 2022 Selina HERBIE Guevara [facility] [employer] [facility] 09:07:44 Problem Notes None recorded. Procedures Surgical History None recorded. Imaging Results Imaging Date Name Status LastModified by Organiz ation Details LastModified Time 02/12/2023 XR, knee completed [email or web address] [facility] [place] [address], [place], [address], 02/12/2023 19:41:22 Procedure Notes None recorded. Medical Equipment None Reported. Medications Name Sig Start Date Stop Date Status Note LastModified by Organization Details LastModified Time celecoxib 200 mg capsule active Not Available Not Available Not Available meloxicam 15 mg tablet TAKE 1 TABLET [...] Updated DateTime 02/12/2023 172.72 cm 27.2 kg/m2 86786.03 g Selina HERBIE Guevara [facility] 02/12/2023 09:09:51 Social History Question Answer Notes LastModified by Organizat ion Details LastModified Time Tobacco Smoking Status Never Smoker Selina HERBIE Guevara [facility] [employer] [facility] 02/12/2023 09:07:00 What Is Your Level Of Alcohol Consumption? None [email or web address] Information not available 02/12/2023 Sex: Unknown Functional Status None recorded. Mental Status None recorded. Family History Relationship Description Onset Age of this Age Resolved Age Notes LastModified by Organization Details LastModified Time Father Family history of malignant neoplasm [email or web address] Not available 2022 09:06:53 Mother Family history of malignant neoplasm [email or web address] Not available 2022 09:06:53 Medical History Condition Response ARTHRITIS Y Past Encounters Encounter ID Performer Location Encounter Start Date Encounter Closed Date Diagnosis/Indication Diagnosis SNOMED-CT Code Diagnosis ICD10 Code Diagnosis Note [id number] Gary Nava MD [facility] [place] [address] [place] [address] 02/12/2023 08:42:04 02/13/2023 09:28:49 Pain of bilateral knee joints [id number] 49290 M25.561 M25.562 Health Concerns Section Related Observation LastModified by Organization Detai ls LastModified Time None Recorded Concern Status LastModified by Organization Details LastModified Time None Recorded Advance Directives Directive None Recorded Payers Encounter Date Sequence Insurance Name Policy Number Policy Tijerina Covered Member ID Tijerina Member ID Guarantor Name 02/12/2023 1 [employer] (MEDICARE REPLACEMENT/A DVANTAGE - HMO) Roberto Norwood [id number] Roberto Norwood Notes Date Note Type Note [...] remains very active. 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 Gary Nava MD [address] [place] [address], [place], [address], [place] [facility] 02/12/2023 19:47:17
--- OUTSIDE RECORDS SUMMARY | 2024-09-12 22:16 | XMS_ITS | Clinical Summary ---
Author Organization [facility] Address [address] [place] [address] Care Team Providers Care Community Services Officer Name Role Phone Dario Jennings MD Primary Care Provider [phone] Allergies Active Allergy Reactions Criticality Noted Date Comments [place] Flavoring Agent (Non-Screening) Swelling 05/27/2024 Poison Myrna Extract Other (see comment) 05/27/20 Swelling Medications amLODIPine (NORVASC) 10 MG tablet 04/14/20 24 Active vitamin C (ASCORBIC ACID) 500 MG tablet Active Calcium Carb-Cholecalc iferol 500-10 MG-MCG Chew Tab Chew 1 tablet by mouth daily. Active vitamin B-12 (CYANOCOBALAMI N) 500 MCG tablet Take 1 tablet (500 mcg total) by mouth daily. Active RU-W3-C10-Omeg a 3-Phytosterols (BP VIT 3) 1 MG [...] Department Care Team Description 07/15/2024 10:00 AM PATIENT SUPPORT ASSOCIATE Office Visit [facility] Orthopedic [facility] Medicine - [address] [address] Ignacio Ramos NP New Patient (Bilateral CTS, Left cubital tunnel) 07/15/2024 Travel 07/07/[address], [address] [place] [phone] Rainer Aguilar MD Results 07/06/[address], [address] [place] [phone] Rainer Aguilar MD Results 07/05/2024 3:00 PM PATIENT SUPPORT ASSOCIATE Office Visit [facility] - [address], [address] [place] [address] Rainer Aguilar MD EMG Testing (BUE*BILATERAL CARPAL TUNNEL) 07/05/2024 Travel from Last 3 Months Social History Tobacco Use Types Packs/Day Years Used Date Smoking Tobacco: Never Smokeless Tobacco: Never Tobacco Cessation:Counseling Given: No Alcohol Use Standard Drinks/Week Comments Not Currently 0 (1 standard drink = 0.6 oz pur e alcohol) Sex and Gender Information Value Date Recorded Sex Assigned at Male 07/15/2024 10:06 AM PATIENT SUPPORT ASSOCIATE Legal Sex Male 9:52 AM CDT Gender Identity Not on file Sexual Orientation Not on file Last Filed Vital Signs Vital Sign Reading Time Taken Comments Blood Pressure 119/72 07/15/2024 10:07 AM PATIENT SUPPORT ASSOCIATE Pulse 72 07/15/2024 10:07 AM PATIENT SUPPORT ASSOCIATE Temperature 37.4 C (99.3 F) 07/15/2024 10:07 AM PATIENT SUPPORT ASSOCIATE Respiratory Rate - - Oxygen Saturation 97% 05/27/2024 8:59 AM PATIENT SUPPORT ASSOCIATE Inhaled Oxygen Concentration - - Weight 84.2 kg (185 lb 9.6 oz) 07/15/2024 10:07 AM PATIENT SUPPORT ASSOCIATE Height 170.2 cm (5' 7 ) 07/15/2024 10:07 AM PATIENT SUPPORT ASSOCIATE Body Mass Index 29.07 07/15/2024 10:07 AM PATIENT SUPPORT ASSOCIATE Plan of Treatment Health Maintenance Due Date [...] 10/10/2020 Influenza Adult (#1) 2024 PHQ-2 (Physician [place]) 06/23/2024 RSV Immunization or 60+ Years (1 [...] Diagnosis Comments EMG Routine 07/05/2024 3:00 PM PATIENT SUPPORT ASSOCIATE Bilateral carpal tunnel syndrome from Last 3 Months Results * NCVS\EMG (Hosp Performed) (07/05/2024 3:00 PM PATIENT SUPPORT ASSOCIATE) Narrative Rainer Aguilar MD - 07/05/2024 3:00 PM PATIENT SUPPORT ASSOCIATE Rainer Aguilar MD 07/05/2024 10:02 PM .Brief history: Mr. Norwood has numbness and tingling in the hand, he has been noticing weakness, and dropping things. 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 Symptoms are worse on the left as compared to right Limited Neurological Exam: He has wasting of the intrinsic hand muscles bilaterally, reflexes are 2+ bilaterally in upper limb. Stark's was negative bilaterally. Tinel's sign is positive at the wrist bilaterally, and at the elbow bilaterally. Electrodiagnostic testing: For sensory nerve conduction studies, the amplitude is measured bcdz-ab-sbjq, the latency reported is the distal peak latency, and the conduction velocity, if measured, is determined from onset latencies and is over the forearm. For motor nerve conduction studies, the amplitude is measured qpuhrzjd-pr-tsuo, the latency reported is the distal onset latency, the conduction velocity is calculated over the forearm, and the F wave latency is the minimum latency. Unless otherwise noted, the hand temperature was monitored continuously and remained between 32 C and 36 C during the performance of the NCSs.The study [...] absent sensory latency, prolonged distal motor latency Yajaira PRINGLE. A neurophysiological grading scale for carpal tunnel syndrome. Muscle Nerve. 1999;23(8):1280-3. Ulnar neuropathy at elbow severity Mild UNE: Slowed ulnar motor NCV across the elbow, with normal SNAP Moderate UNE: Slowed ulnar motor NCV across the elbow, with reduced SNAP amplitude Severe UNE: Slowed ulnar motor NCV across the elbow, with absent SNAP in the 5th finger-wrist segment Brianna Wilson, Alicja I, Tank O, Brianna R, Cristina E, Jun P, Brayan F, Reyes'Sera P, Trish P. Neurophysiological classification of ulnar entrapment across the elbow. Neurol Sci. 2001 Jul;22(1):11-6. Summary of findings: Left median motor NCS [...] the abductor pollicis brevis, first dorsal interosseous. 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 There is at least chronic moderate median mononeuropathy at the wrist [carpal tunnel syndrome] left worse than right. The median motor responses are underestimated as supramaximal stimulation could not be reached and thus the severity cannot be accurately assessed. There is no evidence of superimposed cervical radiculopathy. Nerve conduction and EMG is an extension of history and examination. Clinical correlation is recommended for the electrodiagnostic findings. Rainer Aguilar MD NEUROLOGY ORDERABLES Yolanda l Result from Last 3 Months Insurance [employer] Care Teams Community Services Officer Relationship Specialty Start Date End Date Dario Jennings MD [address] [place] [address] PCP - General FAMILY PRACTICE 01/08/24
--- OUTSIDE RECORDS SUMMARY | 2024-09-12 22:16 | XMS_ITS | Referral Summary ---
Author Organization [facility] [address] [employer] Address [address] [place] [address] Care Team Providers Care Field Support Specialist Name Role Phone Dario Jennings MD Primary Care Provider [phone] Allergies No known active allergies Medications meloxicam [...] 5 mg by mouth daily Active om 9-bbe-xiv-B12- NB-F4-elhmqic 500 mg-500 mcg -1 mg-12.5 mg capsule [...] Insurance [employer] CHOICE MEDICARE PPO Care Teams Field Support Specialist Relationship Specialty Start Date End Date Dario Jennings MD PCP - General Family Medicine 09/10/22
--- OUTSIDE RECORDS SUMMARY | 2024-09-13 02:12 | XMS_ITS | Clinical Summary ---
Author Organization [facility] [address] Address [address] [place] [address] Care Team Providers Care Surgical Dental Assistant Name Role Phone Dario Jennings MD Primary Care Provider [phone] Allergies No known active allergies Medications meloxicam [...] 5 mg by mouth daily Active om 1-hzo-tlh-B12- HU-Y2-xmvchhx 500 mg-500 mcg -1 mg-12.5 mg capsule [...] Insurance [employer] CHOICE MEDICARE PPO Care Teams Surgical Dental Assistant Relationship Specialty Start Date End Date Dario Jennings MD PCP - General Family Medicine 09/10/22
--- OUTSIDE RECORDS SUMMARY | 2024-09-13 02:12 | XMS_ITS | Referral Summary ---
Author Organization [facility] [address] Address [address] [place] [address] Care Team Providers Care Sweat Box Attendant Name Role Phone Dario Jennings MD Primary Care Provider [phone] Allergies No known active allergies Medications meloxicam [...] 5 mg by mouth daily Active om 4-jse-sex-B12- AF-A1-ilyhlmv 500 mg-500 mcg -1 mg-12.5 mg capsule [...] Insurance [employer] CHOICE MEDICARE PPO Care Teams Sweat Box Attendant Relationship Specialty Start Date End Date Dario Jennings MD PCP - General Family Medicine 09/10/22
--- OUTSIDE RECORDS SUMMARY | 2024-09-13 02:12 | XMS_ITS | Clinical Summary ---
Author Organization [facility] Address [address] [place] [address] Care Team Providers Care Piece Goods Clerk Name Role Phone Dario Jennings MD Primary Care Provider Allergies Active Allergy Reactions Criticality Noted Date Comments [place] Flavoring Agent (Non-Screening) Swelling 05/27/2024 Poison Myrna Extract Other (see comment) 05/27/20 Swelling Medications amLODIPine (NORVASC) 10 MG tablet 04/14/20 24 Active vitamin C (ASCORBIC ACID) 500 MG tablet Active Calcium Carb-Cholecalc iferol 500-10 MG-MCG Chew Tab Chew 1 tablet by mouth daily. Active vitamin B-12 (CYANOCOBALAMI N) 500 MCG tablet Take 1 tablet (500 mcg total) by mouth daily. Active BI-X1-M73-Omeg a 3-Phytosterols (BP VIT 3) 1 MG [...] Department Care Team Description 07/15/2024 10:00 AM DONATION SPECIALIST Office Visit [facility] Orthopedic & Sports Medicine - [address] [address] Ignacio Ramos NP New Patient (Bilateral CTS, Left cubital tunnel) 07/15/2024 Travel 07/07/[address], [address] [place] [phone] Rainer Aguilar MD Results 07/06/[address], [address] [place] [phone] Rainer Aguilar MD Results 07/05/2024 3:00 PM DONATION SPECIALIST Office Visit [facility] - [address], [address] [place] [address] Rainer Aguilar MD EMG Testing (BUE*BILATERAL CARPAL [...] Sex Assigned at Male 07/15/2024 10:06 AM DONATION SPECIALIST Legal Sex Male 9:52 AM CDT Gender Identity Not on file Sexual Orientation Not on file Last Filed Vital Signs Vital Sign Reading Time Taken Comments Blood Pressure 119/72 07/15/2024 10:07 AM DONATION SPECIALIST Pulse 72 07/15/2024 10:07 AM DONATION SPECIALIST Temperature 37.4 C (99.3 F) 07/15/2024 10:07 AM DONATION SPECIALIST Respiratory Rate - - Oxygen Saturation 97% 05/27/2024 8:59 AM DONATION SPECIALIST Inhaled Oxygen Concentration - - Weight 84.2 kg (185 lb 9.6 oz) 07/15/2024 10:07 AM DONATION SPECIALIST Height 170.2 cm (5' 7 ) 07/15/2024 10:07 AM DONATION SPECIALIST Body Mass Index 29.07 07/15/2024 10:07 AM DONATION SPECIALIST Plan of Treatment Health Maintenance Due Date [...] 10/10/2020 Influenza Adult (#1) 2024 PHQ-2 (Physician [place]) 06/23/2024 RSV Immunization or 60+ Years (1 [...] Diagnosis Comments EMG Routine 07/05/2024 3:00 PM DONATION SPECIALIST Bilateral carpal tunnel syndrome from Last 3 Months Results * NCVS\EMG (Hosp Performed) (07/05/2024 3:00 PM DONATION SPECIALIST) Narrative Rainer Aguilar MD - 07/05/2024 3:00 PM DONATION SPECIALIST Rainer Aguilar MD 07/05/2024 10:02 PM .Brief history: Mr. Norwood has numbness and tingling in the hand, he has been noticing weakness, and dropping things. 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 For motor nerve conduction studies, the amplitude is measured gfzokski-vv-bzrz, the latency reported is the distal onset [...] Last 3 Months Insurance HU[employer] Care Teams Piece Goods Clerk Relationship Specialty Start Date End Date Dario Jennings MD [address] [place] [address] PCP - General FAMILY PRACTICE 01/08/24
--- NOTE | 2024-09-13 02:15 | ED.GENADULT ---
HPI - General Adult General Chief complaint: Unspecified Stated complaint: food bolus-steak Time Seen by Provider: 09/13/24 01:55 Source: patient Mode of arrival: ambulatory Limitations: no limitations History of Present Illness HPI narrative: Patient presents with concern for food bolus. Had been eating steak at approximately 4pm and feels has a food impaction. Had been around [place] at the time to look at/buy a tractor but drove back to present to this ED since his court stenographer has been through here. Can't recall what their name is but has a history of esophageal dilations x2, last one years ago. Unable to swallow but no difficulty breathing. Related Data Home Medications ?Medication ?Instructions ?Recorded ?Confirmed ?Last Taken ?Type Daily Multiple For Men 1 tab-cap PO DAILY 09/25/21 08/23/24 06/20/24 History ascorbic acid (vitamin C) 500 mg 500 mg PO BID 09/25/21 08/23/24 06/20/24 History capsule calcium 600 mg (as 1 tablet PO DAILY 09/25/21 08/23/24 06/20/24 History carbonate)-vitamin D3 10 mcg (400 unit) tablet (Calcium with Vitamin D) cyanocobalamin (vitamin B-12) 1,000 mcg PO BID 09/25/21 08/23/24 06/20/24 History 1,000 mcg tablet (Vitamin B-12) magnesium 500 mg tablet 500 mg PO BID 09/25/21 08/23/24 06/20/24 History amlodipine 10 mg tablet 10 mg PO DAILY 02/13/24 08/23/24 07/26/24 History omega-3 fatty acids 500 mg capsule 500 mg PO DAILY 03/19/24 08/23/24 06/20/24 History tadalafil 20 mg tablet 20 mg PO DAILY PRN sexual activity 03/19/24 08/23/24 Unknown History famotidine 40 mg tablet 40 mg PO DAILY 06/04/24 08/23/24 06/23/24 History aspirin 81 mg tablet,delayed 81 mg PO DAILY 08/23/24 08/23/24 Unknown History release testosterone cypionate 200 mg/mL 80 mg IM WEEKLY 09/06/24 Unknown History intramuscular oil Allergies Allergy/AdvReac Type Severity Reaction Status Date / Time ximena Allergy Severe Swelling Verified 09/14/24 08:47 of Lip/Tongue/Throat poison enedelia extract Allergy Intermediate Blister Verified 09/14/24 08:47 hydrochlorothiazide AdvReac Mild gout Verified 09/14/24 08:47 [facility] Past Medical History Medical History History of esophageal dilatation x2 Gout Gastroesophageal reflux disease Neuropathy of left hand Hypertension Surgical History Surgical History History of arthroplasty of left knee History of tonsillectomy History of hand surgery Family History Family History Other Diabetes mellitus Social History Social History Social History: Surrogate medical decision maker: Neelam Norwood, spouse. Code status: Full code. 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 Occasionally spitting into bag but generally appears comfortable HEAD: Normocephalic, atraumatic. EYES: Non injected, non icteric ENT: Nares clear, no rhinorrhea or epistaxis. NECK: Supple. CHEST: Speaking in full sentences. No respiratory distress. HEART: Regular rate and rhythm. . ABDOMEN: Soft, nondistended. EXTREMITIES: Normal range of motion. No lower extremity edema. SKIN: Warm, dry, no rash. NEURO: No focal deficits. Alert and oriented x3. PSYCH: Normal mood and affect. Course Vital Signs Vital signs: Vital Signs Temperature 98.2 F 09/12/24 22:15 Pulse Rate 64 09/12/24 22:15 Respiratory Rate 18 09/12/24 22:15 Blood Pressure 146/87 H 09/12/24 22:15 Pulse Oximetry 97 09/12/24 22:15 Oxygen Delivery Room Air 09/12/24 22:15 Temperature 98.2 F 09/12/24 22:15 Pulse Rate 62 09/13/24 04:14 Respiratory Rate 16 09/13/24 04:14 Blood Pressure 110/62 09/13/24 04:14 Pulse Oximetry 97 09/13/24 04:14 Oxygen Delivery Room Air 09/12/24 22:15 Medical Decision Making MDM Narrative Medical decision making narrative: Patient presents with concern for food impaction/food bolus. In the emergency department he is afebrile with vital signs that are acceptable though mild hypertension. Patient is a leukocytosis and normocytic anemia, the latter is stable from previous. Patient feeling much better after ondansetron and glucagon. He he states the pressure is relieved he thinks he is possibly passed it but will know until he tries drinking water. He does successfully p.o. challenged when I reassessed him he does feel like it is in his stomach. He does still think that he will need procedure for dilation but this is no longer urgent/emergent. Stable for discharge and advised to follow up. He can not recall name of previous GI doctor. Provided GI loss prevention/safety district manager today and the name of whom he has previously seen. Vital Signs Vital Signs: Vital Signs Temperature 98.2 F 09/12/24 22:15 Pulse Rate 64 09/12/24 22:15 Respiratory Rate 18 09/12/24 22:15 Blood Pressure 146/87 H 09/12/24 22:15 Pulse Oximetry 97 09/12/24 22:15 Oxygen Delivery Room Air 09/12/24 22:15 Temperature 98.2 F 09/12/24 22:15 Pulse Rate 62 09/13/24 04:14 Respiratory Rate 16 09/13/24 04:14 Blood Pressure 110/62 09/13/24 04:14 Pulse Oximetry 97 09/13/24 04:14 Oxygen Delivery Room Air 09/12/24 22:15 Lab Data Lab results reviewed: Yes I reviewed the patient's lab results. 09/13/24 02:15 09/13/24 02:15 Labs: Lab Results 09/13/24 09/13/24 09/13/24 Range/Units 02:15 02:52 03:10 WBC 17.2 H (4.5-10.0) K/mm3 RBC 4.33 L (4.6-6.20) M/mm3 Hgb 12.6 L (14.0-18.0) g/dL Hct 37.4 L (42.0-52.0) % MCV 86.4 (80-100) fl MCH 29.1 (26-34) pg MCHC 33.7 (32-36) g/dl RDW 14.6 H (11.5-14.5) % Plt Count 276 (150-375) k/mm3 MPV 9.1 (7.4-10.4) fl Immature Gran % (Auto) 0.6 H (0-0.5) % Neut % (Auto) 85.3 H (45.5-73.1) % Lymph % (Auto) 7.4 L (18.3-44.2) % [place] % (Auto) 6.5 (2.6-8.5) % Eos % (Auto) 0.0 (0-4.4) % Baso % (Auto) 0.2 (0.2-1.2) % Lymph # (Auto) 1.28 (0.9-3.2) K/mm3 [place] # (Auto) 1.1 H (0.1-0.6) K/mm3 Eos # (Auto) 0.0 (0-0.3) K/mm3 Baso # (Auto) 0.0 (0.0-0.1) K/mm3 Abs Immat Gran (auto) 0.11 H (0.00-0.031) K/mm3 Absolute Neuts (auto) 14.7 H (1.3-6.7) K/mm3 Absolute Nucleated RBC 0.000 (0.0-0.012) K/mm3 Nucleated RBC % 0.0 (0.0-0.2) % PT 15.4 H (11.1-14.7) Seconds INR 1.2 APTT 26.9 (22.3-36.8) Seconds Sodium 141 (137-145) mmol/L Potassium 3.7 (3.4-5.0) mmol/L Chloride 105 (98-107) mmol/L Carbon Dioxide 23 (22-30) mmol/L Anion Gap 13 H (4-12) mmol/L BUN 25 H (9-20) mg/dL Creatinine 0.72 (0.7-1.3) mg/dL Estim Creat Clear Calc 75 ml/min Estimated GFR > 60 (59 - ) Glucose 116 H (65-110) mg/dL POC Capillary Glucose 119 H (65-105) mg/dl Calcium 9.4 (8.4-10.2) mg/dL Total Bilirubin 1.0 (0.2-1.3) mg/dL AST 33 (17-59) U/L ALT 25 (6-50) U/L Alkaline Phosphatase 71 (38-126) U/L Total Protein 7.0 (6.3-8.2) g/dL Albumin 4.3 (3.5-5.1) g/dL Imaging Data Attestation: I personally reviewed and interpreted this imaging study as follows: My impression: Slight haziness on the left but without michael opacification on my independent interpretation Discharge Plan Discharge Clinical Impression: Food impaction of esophagus, Leukocytosis, Normocytic anemia Patient Disposition: Home, Self-Care Condition: Stable Instructions: Antibiotic Form, Leukocytosis (ED), Anemia (ED), Food Impaction (ED) Additional Instructions: You were able to successfully pass the food bolus/impaction from the esophagus ( food tube ) into the stomach. Recommend following up with your court stenographer. It seems that previously had been seen by Dr Leoncio Swartz but the name of an alternative GI doctor is provided if you are unable to schedule with him for any reason. Return to the emergency department with any new or worsening symptoms. Take small bites and chew thoroughly. Patient Language: Upper Sorbian Prescriptions: No Action omega-3 fatty acids 500 mg capsule 500 mg PO DAILY tadalafil 20 mg tablet 20 mg PO DAILY PRN (Reason: sexual activity) testosterone cypionate 200 mg/mL oil 80 mg IM WEEKLY amlodipine 10 mg tablet 10 mg PO DAILY aspirin 81 mg tablet,delayed release (DR/EC) 81 mg PO DAILY magnesium 500 mg Tablet 500 mg PO BID cyanocobalamin (vitamin B-12) [Vitamin B-12] 1,000 mcg Tablet 1,000 mcg PO BID calcium carbonate-vitamin D3 [Calcium with Vitamin D] 600 mg-10 mcg (400 unit) Tablet 1 tablet PO DAILY ascorbic acid (vitamin C) 500 mg Capsule 500 mg PO BID Daily Multiple For Men 1 tab-cap PO DAILY famotidine 40 mg tablet 40 mg PO DAILY celecoxib 200 mg capsule See Rx Instructions .ROUTE .COMPLEX Qty: 180 3RF Dose Instruction: TAKE 1 CAPSULE TWICE DAILY Rx Instructions: TAKE 1 CAPSULE TWICE DAILY Follow-up/Referrals: Maxime,Leoncio Paredes MD [Non-Staff] - Dario Jennings MD [Primary Care Provider] - Juan Nowak MD [Physician] - Stand Alone Forms: Work/School Release IP Time of Disposition: 04:09
[2024-09-13 02:20] LABS: Basophils Percent Auto 0.2 % (0.2-1.2); Hematocrit 37.4 % (42.0-52.0); Hemoglobin 12.6 g/dL (14.0-18.0); Immature Granulocyte Absolute 0.11 K/mm3 (0.00-0.031); Immature Granulocyte Percent A 0.6 % (0-0.5); Lymphocytes Absolute Auto 1.28 K/mm3 (0.9-3.2); Lymphocytes Percent Auto 7.4 % (18.3-44.2); Mean Corpuscular HGB Conc 33.7 g/dl (32-36); Mean Corpuscular Hemoglobin 29.1 pg (26-34); Mean Corpuscular Volume 86.4 fl (80-100); Mean Platelet Volume 9.1 fl (7.4-10.4); Monocytes Absolute Auto 1.1 K/mm3 (0.1-0.6); Monocytes Percent Auto 6.5 % (2.6-8.5); Neutrophils Absolute Auto 14.7 K/mm3 (1.3-6.7); Neutrophils Percent Auto 85.3 % (45.5-73.1); Platelet Count Result 276 k/mm3 (150-375); Red Blood Count 4.33 M/mm3 (4.6-6.20); Red Cell Distribution Width 14.6 % (11.5-14.5); White Blood Count 17.2 K/mm3 (4.5-10.0)
[2024-09-13 02:34] LABS: Alanine Aminotransferase 25 U/L (6-50); Albumin Level 4.3 g/dL (3.5-5.1); Alkaline Phosphatase 71 U/L (38-126); Anion Gap 13 mmol/L (4-12); Aspartate Amino Transferase 33 U/L (17-59); Blood Urea Nitrogen 25 mg/dL (9-20); Calcium 9.4 mg/dL (8.4-10.2); Carbon Dioxide 23 mmol/L (22-30); Chloride 105 mmol/L (98-107); Estimated CRCL calculation 75 ml/min; Estimated Glomerular Filt Rate > 60; Glucose 116 mg/dL (65-110); Potassium 3.7 mmol/L (3.4-5.0); Sodium 141 mmol/L (137-145)
[2024-09-13] MEDS: GLUCAGON FOR INJ 1 MG VIAL IM (02:50)
[2024-09-13] MEDS: ONDANSETRON INJ 4 MG/2 ML VIAL IV PUSH (02:50)
[2024-09-13 02:58] LABS: Glucose Point of Care 119 mg/dl (65-105)
[2024-09-13 03:28] LABS: INR 1.2; Prothrombin Time 15.4 Seconds (11.1-14.7)
[2024-09-13 03:29] LABS: Partial Thromboplastin Time 26.9 Seconds (22.3-36.8)
[2024-09-13 04:14] VITALS: BP 110/62; PULSE 62; RESP 16; O2SAT 97
== END 2024-09-13 04:15 | disposition home or self-care (01) ==
PROVIDERS: Emergency Provider Student in an Organized Health Care Education/Training Program; PCP Family Medicine
DX: T18.128A Food in esophagus causing other injury, initial encounter (principal); D72.829 Elevated white blood cell count, unspecified; D64.9 Anemia, unspecified; Z79.82 Long term (current) use of aspirin; K21.9 Gastro-esophageal reflux disease without esophagitis; I10 Essential (primary) hypertension
CPT/HCPCS: 36415; 71045; 80053; 82948; 85025; 85610; 85730; 96372; 96374; 99284; J1610; J2405

== ENCOUNTER 2024-09-22 11:39 | Outpatient (CLI) | payer MEDICARE, SELFPAY ==
[2024-09-22 12:01] LABS: Basophils Absolute Auto 0.1 K/mm3 (0.0-0.1); Basophils Percent Auto 0.6 % (0.2-1.2); Eosinophils Percent Auto 0.2 % (0-4.4); Hemoglobin 13.5 g/dL (14.0-18.0); Immature Granulocyte Absolute 0.08 K/mm3 (0.00-0.031); Immature Granulocyte Percent A 0.8 % (0-0.5); Lymphocytes Absolute Auto 1.65 K/mm3 (0.9-3.2); Lymphocytes Percent Auto 16.9 % (18.3-44.2); Mean Corpuscular HGB Conc 33.8 g/dl (32-36); Mean Corpuscular Volume 85.8 fl (80-100); Mean Platelet Volume 8.7 fl (7.4-10.4); Monocytes Absolute Auto 0.7 K/mm3 (0.1-0.6); Monocytes Percent Auto 7.1 % (2.6-8.5); Neutrophils Absolute Auto 7.3 K/mm3 (1.3-6.7); Neutrophils Percent Auto 74.4 % (45.5-73.1); Platelet Count Result 317 k/mm3 (150-375); Red Blood Count 4.66 M/mm3 (4.6-6.20); Red Cell Distribution Width 14.1 % (11.5-14.5); White Blood Count 9.8 K/mm3 (4.5-10.0)
--- OUTSIDE RECORDS SUMMARY | 2024-09-22 13:10 | XMS_ITS | Data Portability ---
Author Organization [place] [facility] [employer], Main Office Address [address] [place] [address] Care Team Providers Care Professor Of Law Name Role Phone CARISA JENNINGS Primary Care Provider CARISA JENNINGS Referring Provider [phone] Assessment Encounter Date Assessment Date Assessment LastModified by Organization Details LastModified Time 02/12/2023 02/12/2023 Impression: Patient has tricompartmental osteoarthritis of both knees severe [id number] medial lateral compartment osteoarthritis each knee. His [...] very well in patients that have advanced avuk-as-xauq arthritis is no longer get cortisone injections. This study show that it does better in patients odxe-pd-jkxtkzlq arthritis. I explained this is something I [...] will not help the knee that has axna-si-urri arthritis as already has full-thickness cartilage loss [...] more than half the time spent in kqzx-kb-shkt care. I am happy to see him [...] XR, knee 023 02/13/20 [email or web address] [facility] [place], [address], [place], [address], 09:28:49 Medication Orders None record ed. Patient TargetsNo targets recorded. Patient InstructionsNo instructions recorded. Reason for Referral None Reported. Results Created Date Observation Date Name Description Value Unit Range Abnormal Flag Note LastModifiedBy Organization Detail LastModifiedTime 02/13/20 XR, knee No observ ation record ed. [email or web address] [facility] [place] [address], [place], [address], 02/12/2023 19:41:22 Result Notes None recorded. Problems Name Problem SNOMED Code Status Onset Date Resolution Date Notes Provider Name and Address Organization Details Recorded Time Pain of bilateral knee joints 53394878697760 4 Active 2022 Selina HERBIE Guevara [employer] 09:07:44 Problem Notes None recorded. Procedures Surgical History None recorded. Imaging Results Imaging Date Name Status LastModified by Organiz ation Details LastModified Time 02/12/2023 XR, knee completed [email or web address] [facility] [place] [address], [place], [address], 02/12/2023 19:41:22 Procedure Notes None recorded. Medical [...] Updated DateTime 02/12/2023 172.72 cm 27.2 kg/m2 17448.03 g Selina HERBIE Guevara [employer] 02/12/2023 09:09:51 Social History Question Answer Notes LastModified by Organizat ion Details LastModified Time Tobacco Smoking Status Never Smoker Selina HERBIE Guevara [employer] [facility] [employer] 02/12/2023 09:07:00 What Is Your Level Of Alcohol Consumption? None [email or web address] Information not available 02/12/2023 Sex: Unknown Functional Status None recorded. Mental Status None recorded. Family History Relationship Description Onset Age of this Age Resolved Age Notes LastModified by Organization Details LastModified Time Father Family history of malignant neoplasm Not available 2022 09:06:53 Mother Family history of malignant neoplasm [email or web address] Not available 2022 09:06:53 Medical History Condition Response ARTHRITIS Y Past Encounters Encounter ID Performer Location Encounter Start Date Encounter Closed Date Diagnosis/Indication Diagnosis SNOMED-CT Code Diagnosis ICD10 Code Diagnosis Note [id number] Gary Nava MD [facility] [place] [address] [place] [address] 02/12/2023 08:42:04 02/13/2023 09:28:49 Pain of bilateral knee joints 8100042040 52988 M25.561 M25.562 Health Concerns Section Related Observation LastModified by Organization Detai ls LastModified Time None Recorded Concern Status LastModified by Organization Details LastModified Time None Recorded Advance Directives Directive None Recorded Payers Encounter Date Sequence Insurance Name Policy Number Policy Tijerina Covered Member ID Tijerina Member ID Guarantor Name 02/12/2023 1 [employer] (MEDICARE REPLACEMENT/A DVANTAGE - HMO) Roberto Norwood [id number] Roberto Norwood Notes Date Note Type Note [...] remains very active. 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 Gary Nava MD [address] [place] [address], [place], [address], [place] [facility] 02/12/2023 19:47:17
--- OUTSIDE RECORDS SUMMARY | 2024-09-22 13:10 | XMS_ITS | Clinical Summary ---
Author Organization [facility] Address [address] [place] [address] Care Team Providers Care Pbx Supervisor Name Role Phone Dario Jennings MD Primary Care Provider [phone] Allergies Active Allergy Reactions Criticality Noted Date Comments [place] Flavoring Agent (Non-Screening) Swelling 05/27/2024 Poison Myrna Extract Other (see comment) 05/27/20 Swelling Medications amLODIPine (NORVASC) 10 MG tablet 04/14/20 24 Active vitamin C (ASCORBIC ACID) 500 MG tablet Active Calcium Carb-Cholecalc iferol 500-10 MG-MCG Chew Tab Chew 1 tablet by mouth daily. Active vitamin B-12 (CYANOCOBALAMI N) 500 MCG tablet Take 1 tablet (500 mcg total) by mouth daily. Active TX-A7-T77-Omeg a 3-Phytosterols (BP VIT 3) 1 MG [...] Department Care Team Description 07/15/2024 10:00 AM PHOTONICS ENGINEERING TECHNOLOGIST Office Visit [facility] - [address] [address] Ignacio Ramos NP New Patient (Bilateral CTS, Left cubital tunnel) 07/15/2024 Travel 07/07/[address], [address] [place] [phone] Rainer Aguilar MD Results 07/06/[address], [address] [place] [phone] Rainer Aguilar MD Results 07/05/2024 3:00 PM PHOTONICS ENGINEERING TECHNOLOGIST Office Visit [facility] - [address], [address] [place] [address] Rainer Aguilar MD EMG Testing (BUE*BILATERAL CARPAL [...] Sex Assigned at Male 07/15/2024 10:06 AM PHOTONICS ENGINEERING TECHNOLOGIST Legal Sex Male 9:52 AM CDT Gender Identity Not on file Sexual Orientation Not on file Last Filed Vital Signs Vital Sign Reading Time Taken Comments Blood Pressure 119/72 07/15/2024 10:07 AM PHOTONICS ENGINEERING TECHNOLOGIST Pulse 72 07/15/2024 10:07 AM PHOTONICS ENGINEERING TECHNOLOGIST Temperature 37.4 C (99.3 F) 07/15/2024 10:07 AM PHOTONICS ENGINEERING TECHNOLOGIST Respiratory Rate - - Oxygen Saturation 97% 05/27/2024 8:59 AM PHOTONICS ENGINEERING TECHNOLOGIST Inhaled Oxygen Concentration - - Weight 84.2 kg (185 lb 9.6 oz) 07/15/2024 10:07 AM PHOTONICS ENGINEERING TECHNOLOGIST Height 170.2 cm (5' 7 ) 07/15/2024 10:07 AM PHOTONICS ENGINEERING TECHNOLOGIST Body Mass Index 29.07 07/15/2024 10:07 AM PHOTONICS ENGINEERING TECHNOLOGIST Plan of Treatment Health Maintenance Due Date Last Done Comments Colorectal Cancer Screening Colonoscopy (10 Years) 1950 Hepatitis C 02/20/1968 DTaP, Tdap and Td Vaccines ( 1 - Tdap) 1969 Zoster Vaccines (1 of 2) 02/20/2000 Annual Medicare Wellness Visit 2015 Pneumococcal Vaccine: 65+ Years (1 of 1 - PCV) 2015 COVID-19 Vaccine (3 - 2023-2 5 season) 2024 10/31/2020, 10/10/2020 PHQ-2 (Physician [place]) 06/23/2024 RSV Immunization or 60+ Years (1 [...] Diagnosis Comments EMG Routine 07/05/2024 3:00 PM PHOTONICS ENGINEERING TECHNOLOGIST Bilateral carpal tunnel syndrome from Last 3 Months Results * NCVS\EMG (Hosp Performed) (07/05/2024 3:00 PM PHOTONICS ENGINEERING TECHNOLOGIST) Narrative Rainer Aguilar MD - 07/05/2024 3:00 PM MARICARMEN Aguilar MD 07/05/2024 10:02 PM .Brief history: Mr. Norwood has numbness and tingling in the hand, he has been noticing weakness, and dropping things. 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 For motor nerve conduction studies, the amplitude is measured [id number], the latency reported is the distal onset [...] Last 3 Months Insurance [employer] Care Teams Pbx Supervisor Relationship Specialty Start Date End Date Dario Jennings MD [address] [place] [address] PCP - General FAMILY PRACTICE 01/08/24
--- OUTSIDE RECORDS SUMMARY | 2024-09-22 13:10 | XMS_ITS | Referral Summary ---
Author Organization [facility] [address] Address [address] [place] [address] Care Team Providers Care Nurses' Association Executive Director Name Role Phone Dario Jennings MD Primary Care Provider [phone] Allergies No known active allergies Medications meloxicam [...] 5 mg by mouth daily Active om 3-vvr-amd-B12- SO-J6-wfrptbe 500 mg-500 mcg -1 mg-12.5 mg capsule [...] Insurance [employer] CHOICE MEDICARE PPO Care Teams Nurses' Association Executive Director Relationship Specialty Start Date End Date Dario Jennings MD PCP - General Family Medicine 09/10/22
--- OUTSIDE RECORDS SUMMARY | 2024-09-22 13:11 | XMS_ITS | Clinical Summary ---
Author Organization [facility] [address] Address [address] [place] [address] Care Team Providers Care Pit Slagman Name Role Phone Dario Jennings MD Primary Care Provider [phone] Allergies No known active allergies Medications meloxicam [...] 5 mg by mouth daily Active om 7-wvd-sjp-B12- YF-Z2-vexdslb 500 mg-500 mcg -1 mg-12.5 mg capsule [...] Vaccine ( season) 02/22/202404/2021, 10/10/2020 Influenza Vaccine (Season Ended) 2025 Insurance [employer] CHOICE MEDICARE PPO Care Teams Pit Slagman Relationship Specialty Start Date End Date Dario Jennings MD PCP - General Family Medicine 09/10/22
--- OUTSIDE RECORDS SUMMARY | 2024-09-22 13:11 | XMS_ITS | Encounter Summary ---
Author Organization [facility] MAEVE Sosa [facility] Address [address] [place] [address] Care Team Providers Care Compression Molding Machine Operator Name Role Phone Unavailable Primary Care Provider Unavailabl e Reason for Referral * Laboratory Services (Routine) - Open Specialty Diagnoses / Procedures Referred By Contac t Referred To Contact Diagnoses Leukocytosis, unspecified type Procedures BCR/ABL1, MONITORING QUANTITATIVE Black Cisneros MD [address] [address] Phone: tel: fax: Referral ID Status Reason Start Date Expiration Date Visits Re quested Visits Authorized [id number] Open 09/22/2024 10/23/2025 1 1 Reason for Visit * Reason Comments Establish Care Encounter Details Date Type Department Care Team (Late st Contact Info) Description 09/22/2024 10:30 AM CDT Office Visit [facility] Oncology and Hematology - [place] [address] [place] [address] [address] [place] [address] Black Cisneros MD [facility] [address] [place] [id number] Leukocytosis, unspecified type (Primary Dx); Anemia, chronic disease Social History Tobacco Use Types Packs/Day Years Used Date Smoking Tobacco: Never Smokeless Tobacco: Never Alcohol Use Standard Drinks/Week Comments Never 0 (1 standard drink = 0.6 oz pur e alcohol) Sex and Gender Information Value Date Recorded Sex Assigned at Not on file Legal Sex Male 12:36 PM CDT Gender Identity Not on file Sexual Orientation Not on file documented as of this encounter Last Filed Vital Signs Vital Sign Reading Time Taken Comments Blood Pressure 130/69 09/22/2024 10:56 AM CDT Pulse 62 09/22/2024 10:56 AM CDT Temperature 36.7 C (98 F) 09/22/2024 10:56 AM CDT Respiratory Rate 15 09/22/2024 10:56 AM CDT Oxygen Saturation 95% 09/22/2024 10:56 AM CDT Inhaled Oxygen Concentration - - Weight 81.2 kg (179 lb) 09/22/2024 10:56 AM CDT Height 172.7 cm (5' 8 ) 09/22/2024 10:56 AM CDT Body Mass Index 27.22 09/22/2024 10:56 AM CDT documented in this encounter Progress Notes * Black Cisneros MD - 09/22/2024 12:19 PM CDT Hematology-oncology consult Note Requesting Physician Gary Nava MD Primary Care Physician No primary care provider on file. Problem list There is no problem list on file for this patient. Previous TREATMENT ? Measurable Disease ? Reason for Visit Roberto Norwood is a 74 y.o. male who was referred for consultation for anemia and leukocytosis. History of present illness This is a pleasant 74-year-old male with history of hypertension, GERD, testosterone deficiency and gout referred to me for anemia and leukocytosis. Patient is on testosterone replacement therapy as well. He denies any bleeding and bruising. He denies being a vegetarian. Denies having any previous stomach surgeries. He had left knee replacement done on July 26, 2024. He is complaining of the right knee pain and planning to have right knee surgery as well. He is complaining of neck pain. Denies any new lung bumps or lymphadenopathy. Patient had labs done on September 13 showed WBC of 17.2 with hemoglobin of 12.6. No other new complaints. Past Medical History Past Medical History: Diagnosis Date Hypertension Testosterone deficiency Gout GERD Surgical History Past Surgical History: Procedure Laterality Date HX CARPAL TUNNEL RELEASE in hands HX KNEE REPLACEMENT Left 2024 HX KNEE REPLACEMENT Right HX ROTATOR CUFF REPAIR Right Medications Current Outpatient Medications Medication Sig Dispense Refill amLODIPine (NORVASC) 10 mg tablet Take 10 mg by mouth daily. famotidine (PEPCID) 40 mg tablet Take 40 mg by mouth daily. testosterone cypionate (DEPO-TESTOSTERONE) 200 mg/mL Oil Inject 200 mg by intramuscular injection twice weekly. MAGNESIUM CITRATE ORAL Take by mouth daily. jhshnlnsftsre-qklwsbwz-yqttou (Multivitamin 50 Plus) Tablet Take 1 Tablet by mouth daily. VITAMIN C, ASCORBATE CALCIUM, ORAL daily. cyanocobalamin (VITAMIN B-12) 500 mcg tablet Take 500 mcg by mouth daily. celecoxib (CeleBREX) 200 mg capsule Take 200 mg by mouth daily. [place] [id number]-[id number]-XC-W9-Muhejtougsv 500 mg-500 mcg -1 mg-12.5 mg Capsule Take by mouth. calcium as CARBONATE-vitamin D3 500 mg-10 mcg (400 unit) tablet Take 1 Tablet by mouth daily. No current facility-administered medications for this visit. Allergies No Known Allergies Immunizations: There is no immunization history on file for this patient. Family History Family History Problem Relation Name Age of Onset Cancer - Other Father Cancer - Other Mother Prostate Cancer Brother Diabetes Brother Ovarian Cancer Sister No Known Problems Sister Social History Social History Tobacco Use Smoking status: Never Smokeless tobacco: Never Substance Use Topics Alcohol use: Never Review of Systems Constitutional: Patient did not mention fever; no night sweats; no anorexia; no weight loss; no fatique NEENT: Patient did not mention headache; no change in vision; no change in hearing; no sore throat;no dysphagia Respiratory: Patient did not mention shortness of breath; no pleuritic chest pain; no cough; no hemoptysis Cardiac: Patient did not mention cardiac-like chest pain; no palpitations; no orthopnea; no PND; noDOE GI: Patient did not mention abdominal pain; no nausea; no vomiting; no diarrhea; no hematochezia; no melena : Patient did not mention dysuria; no frequency; no hesitancy; no hematuria GRADUATE ENGINEER: Musculosketetal: Patient did not mention bone pain; complain of right knee arthralgia; no joint swelling; no myalgia; Skin: Patient did not mention pruritis; no rash; no petechiae; no ecchymoses Endocrine: Patient did not mention polydipsia; no polyuria; no unusual weight gain Neuro: Patient did not mention headache; no change in vision; no sensory changes; no muscle weakness; no confusion; no seizures Psych: Patient did not mention anxiety; no depression; Physical Exam Vitals: As per nursing note Constitutional: Well developed, well nourished, no acute distress, non-toxic appearance Teeth and gum. No signs of infection or swelling. Eyes: PERRL, conjunctiva normal HEENT: Atraumatic, external ears normal, nose normal, oropharynx moist, no pharyngeal exudates. no sinus tenderness Neck- normal range of motion, no tenderness, supple Respiratory: No respiratory distress, normal breath sounds, no rales, no wheezing Cardiovascular: Normal rate, normal rhythm, no murmurs, no gallops, no rubs GI: Soft, nondistended, normal bowel sounds, nontender, no splenomegaly, no hepatomegaly, no mass, no rebound, no guarding : No costovertebral angle tenderness Musculoskeletal: No edema, no tenderness, no deformities. Back- no tenderness Integument: Well hydrated, no rash, Digits and nails inspection normal Lymphatic: No lymphadenopathy noted Neurologic: Alert & oriented x 3, CN 2-12 normal, normal motor function, normal sensory function, no focal deficits noted Psychiatric: Speech and behavior appropriate ? labs No results found for this or any previous visit (from the past 24 hours). Labs from September 13 showed WBC 17.2 hemoglobin 12.6 platelet 276,000 neutrophils 85% lymphocyte 7.4%total bilirubin 1.0 creatinine 0.7 Pathology ? Imaging & Other Studies Performance Status? Assessment / Plan: ? Leukocytosis. Patient is a pleasant 74-year-old male with history of hypertension, gastroesophageal reflux disease, testosterone deficiency and gout referred to me for leukocytosis. He has been complaining of right knee arthralgia. Patient had left knee replacement done on July 26, 2024. He is also complaining of neck pain. On my examination there is no evidence of lymphadenopathy and hepatosplenomegaly. I have discussed the differential diagnosis of leukocytosis with the patient that include leukocytosis secondary to lymphoproliferative disorder and reactive disorder. In this case is likely reactive leukocytosis. I will check the workup that will include CBC with differential,CMP, C-reactive protein, sedimentation rate, BCR-ABL translocation by PCR testing and flow cytometric analysis for leukemia. I will see him back in 2 weeks to discuss findings and further recommendations. Normocytic anemia. He denies any evidence of bleeding and bruising. This could also be secondary toanemia of chronic inflammation. I will order the workup that will include iron studies, B12 level, soluble transferrin receptor and methylmalonic acid level. I will discuss results with the patient in 2 weeks. Testosterone deficiency. He is on testosterone injections. Hypertension. He is on Norvasc. GERD. Patient is on Pepcid. Thank you very much for allowing me to participate in Roberto Norwood's evaluation and management. Please feel free to contact if I can be of any further assistance in your patient???s care requiring hematology or oncology evaluation. Sincerely, ? ? Black Cisneros M.D. cell TOBACCO COUNSELING He is not a tobacco/nicotine user. Black Cisneros MD ,09/22/2024 12:20 PM ? Total time spent 60 minutes, two third of the total time spent counseling patient [id number]. CC:?Gary Nava MD documented in this encounter Plan of Treatment Upcoming Encounters Date Type Department Care Team (Late st Contact Info) Description 10/08/2024 8:30 AM CDT Office Visit [facility] Oncology and Hematology - [place] [address] [facility] [address] [place] [address] Black Cisneros MD [address] [facility] [address] [place] [address] Scheduled Orders Name Type Priority Associated Diagnoses Orde r Schedule CBC WITH DIFFERENTIAL Lab Stat Leukocytosis, unspecified type Expected: 09/22/2024, Expires: 09/22/2025 COMPREHENSIVE METABOLIC PANEL Lab Stat Leukocytosis, unspecified type Expected: 09/22/2024, Expires: 09/22/2025 C-REACTIVE PROTEIN Lab Routine Leukocytosis, unspecified type Expected: 09/22/2024, Expires: 09/22/2025 SEDIMENTATION RATE Lab Routine Leukocytosis, unspecified type Expected: 09/22/2024, Expires: 09/22/2025 FLOW CYTOMETRY PANEL Lab Routine Leukocytosis, unspecified type Expected: 09/22/2024, Expires: 09/22/2025 FERRITIN Lab Routine Anemia, chronic disease Expected: 09/22/2024, Expires: 09/22/2025 IRON, TIBC, AND PERCENT SATURATION Lab Routine Anemia, chronic disease Expected: 09/22/2024, Expires: 09/22/2025 METHYLMALONIC ACID Lab Routine Anemia, chronic disease Expected: 09/22/2024, Expires: 09/22/2025 VITAMIN A LEVEL Lab Routine Anemia, chronic disease Expected: 09/22/2024, Expires: 09/22/2025 BCR/ABL1, MONITORING QUANTITATIVE Lab Routine Leukocytosis, unspecified type Expected: 09/22/2024, Expires: 09/22/2025 documented as of this encounter Visit Diagnoses Diagnosis Leukocytosis, unspecified type- Primary Anemia, chronic disease Anemia of other chronic disease documented in this encounter
--- OUTSIDE RECORDS SUMMARY | 2024-09-22 13:11 | XMS_ITS | Clinical Summary ---
Author Organization [facility] [address] Address [address] [place] [address] Care Team Providers Care Special Police Name Role Phone Unavailable Primary Care Provider Unavailabl e Allergies No known active allergies Medications multivitamins- minerals-lutei n (Multivitamin 50 Plus) Tablet Take 1 Tablet by mouth daily. Active VITAMIN C, ASCORBATE CALCIUM, ORAL daily. Active cyanocobalamin (VITAMIN B-12) 500 mcg tablet Take 500 mcg by mouth daily. Active amLODIPine (NORVASC) 10 mg tablet Take 10 mg by mouth daily. 4 Active celecoxib (CeleBREX) 200 mg capsule Take 200 mg by mouth daily. Active famotidine (PEPCID) 40 mg tablet Take 40 mg by mouth daily. 4 Active testosterone cypionate (DEPO-TESTOSTE DELISA) 200 mg/mL Oil Inject 200 mg by intramuscular injection twice weekly. 3 Active [place] 4-[id number]-[id number]-[id number]-R8-Li ytosterol 500 mg-500 mcg -1 mg-12.5 mg Capsule Take by mouth. Activ e calcium as CARBONATE-michelle min D3 500 mg-10 mcg (400 unit) tablet Take 1 Tablet by mouth daily. Active MAGNESIUM CITRATE ORAL Take by mouth daily. Active Active Problems No known active problems Encounters Date Type Department Care Team Description 09/22/2024 10:30 AM CDT Office Visit [facility] Oncology and Hematology - [place] [address] [place] [address] Black Cisneros MD Leukocytosis, unspecified type (Primary Dx); Anemia, chronic disease from Last 3 Months Family History Medical History Relation Name Comments Prostate Cancer Brother 1 Diabetes Brother 2 Cancer - Other Father Cancer - Other Mother Ovarian Cancer Sister 1 No Known Problems Sister 2 Relation Name Status Comments Brother 1 Alive Brother 2 Alive Father Mother Sister 1 Alive Sister 2 Alive Social History Tobacco Use Types Packs/Day Years [...] Mass Index 27.22 09/22/2024 10:56 AM CDT Plan of Treatment Upcoming Encounters Date Type Department Care Team (Late st Contact Info) Description 10/08/2024 8:30 AM CDT Office Visit [facility] Oncology and Hematology - [place] [address] [facility] [address] [place] [address] Black Cisneros MD [address] [facility] [address] [place] [address] Health Maintenance Due Date Last Done Comments DTAP/TDAP/TD VACCINES (1 - Tdap) 1969 COLORECTAL SCREENING 1995 Colorectal Cancer Screening 1995 FIT-DNA Q 3 years 1995 FIT/FOBT Q 1 year 1995 Flex Sig/CT Colonography Q 5 years 1995 PNEUMOCOCCAL VACCINE 50+ YEARS (1 of 1 - PCV) 02/20/20 00 ZOSTER VACCINE (1 of 2) 02/20/2000 INFLUENZA VACCINE (#1) 2024 [place] Prev entative Visit/Annual Wellness Visit 06/23/2024 RSV VACCINE (60+ or ) (1 - 1-dose 75+ series) 2025 Insurance Listen Edition [facility]
[2024-09-22 13:57] LABS: Alanine Aminotransferase 18 U/L (6-50); Albumin Level 4.5 g/dL (3.5-5.1); Alkaline Phosphatase 67 U/L (38-126); Anion Gap 9 mmol/L (4-12); Aspartate Amino Transferase 29 U/L (17-59); Bilirubin,Total 0.6 mg/dL (0.2-1.3); Blood Urea Nitrogen 23 mg/dL (9-20); CRP < 0.5 mg/dL (<1.0); Calcium 9.5 mg/dL (8.4-10.2); Carbon Dioxide 28 mmol/L (22-30); Chloride 102 mmol/L (98-107); Estimated Glomerular Filt Rate > 60; Glucose 93 mg/dL (65-110); Potassium 4.3 mmol/L (3.4-5.0); Sodium 139 mmol/L (137-145)
[2024-09-22 14:15] LABS: Erythrocyte Sedimentation Rate 13 mm/hr (0-20)
[2024-09-22 16:08] LABS: Iron 97 ug/dL (49-181)
[2024-09-22 16:18] LABS: Percent Iron Saturation 30 % (20-50)
[2024-09-26 01:58] LABS: Methylmalonic Acid 121 nmol/L (69-390)
[2024-09-27 14:54] LABS: BCR/abl P190 NOT DETECTED; BCR/abl P210 NOT DETECTED; BCR/abl Source PERIPHERAL
[2024-09-28 15:35] LABS: Vitamin A 70 mcg/dL (38-98)
== END 2024-09-22 11:40 | disposition home or self-care (01) ==
LOC: ANHLAB 11:40
PROVIDERS: PCP Family Medicine; Visit Provider Internal Medicine Hematology & Oncology
DX: D72.829 Elevated white blood cell count, unspecified (principal); D63.8 Anemia in other chronic diseases classified elsewhere
CPT/HCPCS: 36415; 80053; 82728; 83540; 83550; 83921; 84590; 85025; 85652; 86140; 88184

== ENCOUNTER 2024-10-12 03:07 | Day surgery (SDC) | payer MEDICARE, SELFPAY ==
[2024-09-30 13:02] VITALS: BMI 25.7
--- OUTSIDE RECORDS SUMMARY | 2024-10-12 03:11 | XMS_ITS | Clinical Summary ---
Author Organization [facility] Address [address] [place] [address] Care Team Providers Care Vault Person Name Role Phone Dario Jennings MD Primary Care Provider [phone] Allergies Active Allergy Reactions Criticality Noted Date Comments Adriel Flavoring Agent (Non-Screening) Swelling 05/27/2024 Poison Myrna Extract Other (see comment) 05/27/20 Swelling Medications amLODIPine (NORVASC) 10 MG tablet 04/14/20 24 Active vitamin C (ASCORBIC ACID) 500 MG tablet Active Calcium Carb-Cholecalc iferol 500-10 MG-MCG Chew Tab Chew 1 tablet by mouth daily. Active vitamin B-12 (CYANOCOBALAMI N) 500 MCG tablet Take 1 tablet (500 mcg total) by mouth daily. Active KS-R5-Q80-Omeg a 3-Phytosterols (BP VIT 3) 1 MG [...] Department Care Team Description 07/15/2024 10:00 AM FISHER SWORDFISH Office Visit [facility] Orthopedic & Sports Medicine - [address] [address] Ignacio Ramos NP New Patient (Bilateral CTS, Left cubital tunnel) 07/15/2024 Travel from Last 3 Months Social History Tobacco Use Types Packs/Day Years Used Date Smoking Tobacco: Never Smokeless Tobacco: Never Tobacco Cessation:Counseling Given: No Alcohol Use Standard Drinks/Week Comments Not Currently 0 (1 standard drink = 0.6 oz pur e alcohol) Sex and Gender Information Value Date Recorded Sex Assigned at Male 07/15/2024 10:06 AM FISHER SWORDFISH Legal Sex Male 9:52 AM CDT Gender Identity Not on file Sexual Orientation Not on file Last Filed Vital Signs Vital Sign Reading Time Taken Comments Blood Pressure 119/72 07/15/2024 10:07 AM FISHER SWORDFISH Pulse 72 07/15/2024 10:07 AM FISHER SWORDFISH Temperature 37.4 C (99.3 F) 07/15/2024 10:07 AM FISHER SWORDFISH Respiratory Rate - - Oxygen Saturation 97% 05/27/2024 8:59 AM FISHER SWORDFISH Inhaled Oxygen Concentration - - Weight 84.2 kg (185 lb 9.6 oz) 07/15/2024 10:07 AM FISHER SWORDFISH Height 170.2 cm (5' 7 ) 07/15/2024 10:07 AM FISHER SWORDFISH Body Mass Index 29.07 07/15/2024 10:07 AM FISHER SWORDFISH Plan of Treatment Health Maintenance Due Date Last Done Comments Colorectal Cancer Screening Colonoscopy (10 Years) 1950 Hepatitis C 02/20/1968 DTaP, Tdap and Td Vaccines ( 1 - Tdap) 1969 Pneumococcal Vaccine: 50+ Years (1 of 1 - PCV) 02/20/2000 Zoster Vaccines (1 of 2) 02/20/2000 Annual Medicare Wellness Visit 2015 COVID-19 Vaccine (3 - 2023-2 5 season) 2024 10/31/2020, 10/10/2020 PHQ-2 (Physician [place]) 06/23/2024 RSV Immunization or 60+ Years (1 [...] patient's age to complete this topic Insurance [facility] Care Teams Vault Person Relationship Specialty Start Date End Date Dario Jennings MD [address] [place] [address] PCP - General FAMILY PRACTICE 01/08/24
--- OUTSIDE RECORDS SUMMARY | 2024-10-12 03:11 | XMS_ITS | Clinical Summary ---
Author Organization [facility] [address] Address [address] [place] [address] Care Team Providers Care Computer Service Technician Name Role Phone Unavailable Primary Care Provider [...] by intramuscular injection twice weekly. 3 Active [place] [id number]-Tz ytosterol 500 mg-500 mcg -1 mg-12.5 mg Capsule Take by mouth. Activ e calcium as CARBONATE-michelle min D3 500 mg-10 mcg (400 unit) tablet Take 1 Tablet by mouth daily. Active MAGNESIUM CITRATE ORAL Take by mouth daily. Active Active Problems No known active problems Encounters Date Type Department Care Team Description 10/08/2024 8:30 AM CDT Office Visit [facility] Oncology and Hematology - [place] [address] [place] [address] Black Cisneros MD Leukocytosis, unspecified type (Primary Dx) 09/29/2024 Orders Only [facility] Oncology and Hematology [place] [address] [place] [address] Black Cisneros MD 09/28/2024 External Device Data STL ABSTRACTION Provider, Abstract 09/28/2024 External Device Data ST[place] ABSTRACTION Provider, Abstract 09/28/2024 External Device Data ST[place] ABSTRACTION Provider, Abstract 09/28/2024 Orders Only [facility] Oncology and Hematology - [place] [address] [place] [address] Black Cisneros MD 09/23/2024 Abstract [facility] Oncology and Hematology - [place] [address] [place] [id number] Black Cisneros MD 09/23/2024 Orders Only [facility] Oncology and Hematology - [place] [address] [place] [address] Black Cisneros MD 09/22/2024 10:30 AM CDT Office Visit [facility] Oncology and Hematology [facility] [address] Black Cisneros MD Leukocytosis, unspecified type (Primary [...] Not Answered Alcohol Use Standard Drinks/Week Comments Never 0 (1 standard drink = 0.6 oz pur e alcohol) Sex and Gender Information Value Date Recorded Sex Assigned at Not on file Legal Sex Male 12:36 PM CDT Gender Identity Not on file Sexual Orientation Not on file Last Filed Vital Signs Vital Sign Reading Time Taken Comments Blood Pressure 123/67 10/08/2024 8:41 AM CDT Pulse 56 10/08/2024 8:41 AM CDT Temperature 36.6 C (97.9 F) 10/08/2024 8:41 AM CDT Respiratory Rate 15 10/08/2024 8:41 AM CDT Oxygen Saturation 90% 10/08/2024 8:41 AM CDT Inhaled Oxygen Concentration - - Weight 84.8 kg (187 lb) 10/08/2024 8:41 AM CDT Height 172.7 cm (5' 8 ) 09/22/2024 10:56 AM CDT Body Mass Index 28.43 09/22/2024 10:56 AM CDT Plan of Treatment Upcoming Encounters Date Type Department Care Team (Late st Contact Info) Description 04/22/2025 8:30 AM CDT Office Visit [facility] Oncology and Hematology - [place] [address] [facility] [address] [place] [address] Black Cisneros MD [address] [facility] [address] [place] [address] Health Maintenance Due Date Last Done Comments DTAP/TDAP/TD VACCINES (1 - Tdap) 1969 COLORECTAL SCREENING 1995 Colorectal Cancer Screening 1995 FIT-DNA Q 3 years 1995 FIT/FOBT Q 1 year 1995 Flex Sig/CT Colonography Q 5 years 1995 PNEUMOCOCCAL VACCINE 50+ YEARS (1 of 1 - PCV) 02/20/20 00 ZOSTER VACCINE (1 of 2) 02/20/2000 INFLUENZA VACCINE (#1) 2024 [place] ([place]) Prev entative Visit/Annual Wellness Visit 06/23/2024 RSV VACCINE (60+ or ) (1 - 1-dose 75+ series) 2025 Procedures Procedure Name Priority Date/Time Associated Diagnosis Comments METHYLMALONIC ACID Routine 09/22/2024 3: 14 PM CDT IRON, TIBC, AND PERCENT SATURATION Routine 09/22/2024 12:21 PM CDT COMPREHENSIVE METABOLIC PANEL Routine 09/22/2024 11:33 AM CDT from Last 3 Months Results * METHYLMALONIC ACID (09/22/2024 3:14 PM CDT) Blood us Black Cisneros MD CHEMISTRY ORDERABLES Final Resu lt * IRON, TIBC, AND PERCENT SATURATION (09/22/2024 12:21 PM CDT) Blood Black Cisneros MD CHEMISTRY ORDERABLES Final Resu lt * COMPREHENSIVE METABOLIC PANEL (09/22/2024 11:33 AM CDT) Blood Black Cisneros MD CHEMISTRY ORDERABLES Final Resu lt from Last 3 Months Insurance [employer] [facility]
--- OUTSIDE RECORDS SUMMARY | 2024-10-12 03:11 | XMS_ITS | Referral Summary ---
Author Organization [facility] [address] Address [address] [place] [address] Care Team Providers Care Chuck Wagon Cook Name Role Phone Dario Jennings MD Primary Care Provider [phone] Allergies No known active allergies Medications meloxicam [...] 5 mg by mouth daily Active om 4-kvk-gkc-B12- MS-R4-avxgmbj 500 mg-500 mcg -1 mg-12.5 mg capsule [...] Insurance [employer] MEDIC[employer] PPO Care Teams Chuck Wagon Cook Relationship Specialty Start Date End Date Dario Jennings MD PCP - General Family Medicine 09/10/22
--- OUTSIDE RECORDS SUMMARY | 2024-10-12 03:11 | XMS_ITS | Data Portability ---
Author Organization [place] [facility], Main Office Address [address] [place] [address] Care Team Providers Care Tower Cleaner Name Role Phone CARISA JENNINGS Primary Care Provider CARISA JENNINGS Referring Provider [phone] Assessment Encounter Date Assessment Date Assessment LastModified by Organization Details LastModified Time 02/12/2023 02/12/2023 Impression: Patient has tricompartmental osteoarthritis of both knees severe hlzh-vl-mzlm medial lateral compartment osteoarthritis each knee. His [...] very well in patients that have advanced xyoh-yl-ujdo arthritis is no longer get cortisone injections. This study show that it does better in patients dqle-gp-fugiursw arthritis. I explained this is something I [...] will not help the knee that has egjz-gw-tzdf arthritis as already has full-thickness cartilage loss [...] more than half the time spent in fzxm-of-sjwg care. I am happy to see him [...] XR, knee 023 02/13/20 [email or web address] [facility] [place], [address], [place], [address], 09:28:49 Medication Orders None record ed. Patient TargetsNo targets recorded. Patient InstructionsNo instructions recorded. Reason for Referral None Reported. Results Created Date Observation Date Name Description Value Unit Range Abnormal Flag Note LastModifiedBy Organization Detail LastModifiedTime 02/13/20 XR, knee No observ ation record ed. [email or web address] [facility] [place] [address], [place], [address], 02/12/2023 19:41:22 Result Notes None recorded. Problems Name Problem SNOMED Code Status Onset Date Resolution Date Notes Provider Name and Address Organization Details Recorded Time Pain of bilateral knee joints [id number] 4 Active 2022 Selina HERBIE Guevara [employer] [facility] 09:07:44 Problem Notes None recorded. Procedures Surgical History None recorded. Imaging Results Imaging Date Name Status LastModified by Organiz ation Details LastModified Time 02/12/2023 XR, knee completed [email or web address] [facility] [place] [address], [place], [address], 02/12/2023 19:41:22 Procedure Notes None recorded. Medical [...] Updated DateTime 02/12/2023 172.72 cm 27.2 kg/m2 50435.03 g Selina HERBIE Guevara [employer] 02/12/2023 09:09:51 Social History Question Answer Notes LastModified by Organizat ion Details LastModified Time Tobacco Smoking Status Never Smoker Selina HERBIE Guevara [employer] [facility] 02/12/2023 09:07:00 What Is Your Level Of Alcohol Consumption? None Information not available 02/12/2023 Sex: Unknown Functional Status None recorded. Mental Status None recorded. Family History Relationship Description Onset Age of this Age Resolved Age Notes LastModified by Organization Details LastModified Time Father Family history of malignant neoplasm [email or web address] Not available 2022 09:06:53 Mother Family history of malignant neoplasm [email or web address] Not available 2022 09:06:53 Medical History Condition Response ARTHRITIS Y Past Encounters Encounter ID Performer Location Encounter Start Date Encounter Closed Date Diagnosis/Indication Diagnosis SNOMED-CT Code Diagnosis ICD10 Code Diagnosis Note [id number] Gary Nava MD [facility] [place] [address] [place] [address] 02/12/2023 08:42:04 02/13/2023 09:28:49 Pain of bilateral knee joints 7758302227 58072 M25.561 M25.562 Health Concerns Section Related Observation LastModified by Organization Detai ls LastModified Time None Recorded Concern Status LastModified by Organization Details LastModified Time None Recorded Advance Directives Directive None Recorded Payers Encounter Date Sequence Insurance Name Policy Number Policy Tijerina Covered Member ID Tijerina Member ID Guarantor Name 02/12/2023 1 [employer] (MEDICARE REPLACEMENT/A DVANTAGE - HMO) Roberto Norwood [id number] Roberto Norwood Notes Date Note Type Note [...] remains very active. 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 Gary Nava MD [address] [place] [address], [place], [address], [place] [facility] 02/12/2023 19:47:17
--- OUTSIDE RECORDS SUMMARY | 2024-10-12 03:11 | XMS_ITS | Clinical Summary ---
Author Organization [facility] [address] [employer] Address [address] [place] [address] Care Team Providers Care Potato Spotter Name Role Phone Dario Jennings MD Primary Care Provider [phone] Allergies No known active allergies Medications meloxicam [...] 5 mg by mouth daily Active om 7-bwe-agu-B12- BI-R0-fugvqzp 500 mg-500 mcg -1 mg-12.5 mg capsule [...] Insurance [employer] CHOICE MEDICARE PPO Care Teams Potato Spotter Relationship Specialty Start Date End Date Dario Jennings MD PCP - General Family Medicine 09/10/22
[2024-10-12 13:30] VITALS: BP 157/80; PULSE 62; RESP 16; TEMP 36.7; O2SAT 99; BMI 27.2
[2024-10-12] MEDS: LACTATED RINGERS 1,000 ML 150 ML IV CONT (13:41)
--- NOTE | 2024-10-12 13:41 | WPDANESEPPF ---
Anes - Initial Pre Proc Eval Procedure: Operation Date: 10/12/24 14:00 Proposed Procedures p Esophagogastroduodenoscopy - Juan Nowak MD Date/Time: 10/12/24 13:41 Surgeon: Juan Nowak MD Pre Op Diagnosis: Dysphagia, Esophageal obstruction Patient Data Age: 74 Gender: M Height: 1.75 m Weight: 83.6 kg Last Vital Signs Temp 36.7 C 10/12/24 13:30 Pulse 62 10/12/24 13:30 Resp 16 10/12/24 13:30 BP 157/80 H 10/12/24 13:30 Pulse Ox 99 10/12/24 13:30 O2 Del Method Room Air 10/12/24 13:30 Allergies Allergy/AdvReac Type Severity Reaction Status Date / Time ximena Allergy Severe Swelling Verified 10/12/24 13:29 of Lip/Tongue/Throat poison enedelia extract Allergy Intermediate Blister Verified 10/12/24 13:29 hydrochlorothiazide AdvReac Mild gout Verified 10/12/24 13:29 Home Medications ?Medication ?Instructions ?Recorded ?Confirmed ?Type Daily Multiple For Men 1 tab-cap PO DAILY 09/25/21 10/12/24 History ascorbic acid (vitamin C) 500 mg 500 mg PO BID 09/25/21 10/12/24 History capsule calcium 600 mg (as 1 tablet PO DAILY 09/25/21 10/12/24 History carbonate)-vitamin D3 10 mcg (400 unit) tablet (Calcium with Vitamin D) cyanocobalamin (vitamin B-12) 1,000 mcg PO BID 09/25/21 10/12/24 History 1,000 mcg tablet (Vitamin B-12) magnesium 500 mg tablet 500 mg PO BID 09/25/21 10/12/24 History amlodipine 10 mg tablet 10 mg PO DAILY 02/13/24 10/12/24 History omega-3 fatty acids 500 mg capsule 500 mg PO DAILY 03/19/24 10/12/24 History tadalafil 20 mg tablet 20 mg PO DAILY PRN sexual activity 03/19/24 09/30/24 History famotidine 40 mg tablet 40 mg PO DAILY 06/04/24 10/12/24 History celecoxib 200 mg capsule See Rx Instructions .Route 08/16/24 10/12/24 Rx .COMPLEX #180 caps testosterone cypionate 200 mg/mL 80 mg IM WEEKLY 09/06/24 10/12/24 History intramuscular oil Patient hx anesthesia problems: none Family hx anesthesia problems: none Results Review: All pre-operative results and documents have been reviewed as part of the pre-operative evaluation. PENDING SALE TO [facility] Past Medical History Medical History Esophageal stricture History of esophageal dilatation x2 Gout Gastroesophageal reflux disease Neuropathy of left hand Hypertension Surgical History Surgical History History of arthroplasty of left knee History of tonsillectomy History of hand surgery Family History Family History Other Diabetes mellitus Social History Social History Social History: Surrogate medical decision maker: Neelam Norwood, spouse. Code status: Full code. 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 Informed Consent: The patient's anesthetic plan and its attendant risks and benefits were discussed with the patient/family/POA. Questions were solicited and answers provided to the satisfaction of the patient/family/POA.
--- NOTE | 2024-10-12 14:49 | PM.IMHP ---
H&P: HPI History of Present Illness Date/Time: 10/12/24 14:49 Chief Complaint: Dysphagia Narrative: this patient has suffered from reflux for several years. 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 He is starting to feel the same intermittent sensation of dysphagia again. He is now referred for EGD. Review of Systems Review of Systems: All systems reviewed & are unremarkable except as noted in HPI and below PMFSH Past Medical History Medical History Esophageal stricture History of esophageal dilatation x2 Gout Gastroesophageal reflux disease Neuropathy of left hand Hypertension Surgical History Surgical History History of arthroplasty of left knee History of tonsillectomy History of hand surgery Family History Family History Other Diabetes mellitus Social History Social History Social History: Surrogate medical decision maker: Neelam Norwood, spouse. Code status: Full code. 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 Spiritual care concerns: No Meds Home Medications and Allergies Home Medications ?Medication ?Instructions ?Recorded ?Confirmed ?Type Daily Multiple For Men 1 tab-cap PO DAILY 09/25/21 10/12/24 History ascorbic acid (vitamin C) 500 mg 500 mg PO BID 09/25/21 10/12/24 History capsule calcium 600 mg (as 1 tablet PO DAILY 09/25/21 10/12/24 History carbonate)-vitamin D3 10 mcg (400 unit) tablet (Calcium with Vitamin D) cyanocobalamin (vitamin B-12) 1,000 mcg PO BID 09/25/21 10/12/24 History 1,000 mcg tablet (Vitamin B-12) magnesium 500 mg tablet 500 mg PO BID 09/25/21 10/12/24 History amlodipine 10 mg tablet 10 mg PO DAILY 02/13/24 10/12/24 History omega-3 fatty acids 500 mg capsule 500 mg PO DAILY 03/19/24 10/12/24 History tadalafil 20 mg tablet 20 mg PO DAILY PRN sexual activity 03/19/24 09/30/24 History famotidine 40 mg tablet 40 mg PO DAILY 06/04/24 10/12/24 History celecoxib 200 mg capsule See Rx Instructions .Route 08/16/24 10/12/24 Rx .COMPLEX #180 caps testosterone cypionate 200 mg/mL 80 mg IM WEEKLY 09/06/24 10/12/24 History intramuscular oil Allergies Allergy/AdvReac Type Severity Reaction Status Date / Time ximena Allergy Severe Swelling Verified 10/12/24 13:29 of Lip/Tongue/Throat poison enedelia extract Allergy Intermediate Blister Verified 10/12/24 13:29 hydrochlorothiazide AdvReac Mild gout Verified 10/12/24 13:29 Vital Signs Vital Signs - 24 hr 10/12/24 13:30 Temperature 98.1 F Pulse Rate 62 Respiratory Rate 16 Blood Pressure 157/80 H Pulse Oximetry 99 Oxygen Delivery Room Air Exam Const: General: cooperative and healthy appearing Resp: Effort & Inspection: normal respiratory effort and able to speak in complete sentences Auscultation: clear to auscultation bilaterally Cardio: Rate: regular rate Rhythm: regular rhythm GI: Inspection: normal to inspection GI Palp: No No hepatosplenomegaly present Auscultation: normal bowel sounds Rectal Exam: deferred Skin: General skin exam: normal color Psych: Appearance: grossly normal Mental Status: mental status grossly normal Assessment and Plan Assessment and plan (1) Dysphagia: Code(s): R13.10 - Dysphagia, unspecified Status: Acute Assessment and Plan: The patient is deemed a good candidate for the procedure. Consent signed. Will proceed.
[2024-10-12 15:09] VITALS: BP 93/60; PULSE 57; RESP 16; O2SAT 98
[2024-10-12 15:19] VITALS: BP 109/67; PULSE 50; RESP 16; O2SAT 98
[2024-10-12 15:28] VITALS: BP 103/67; PULSE 57; RESP 16; O2SAT 98
== END 2024-10-12 16:00 | disposition home or self-care (01) ==
PROVIDERS: PCP Family Medicine; Referring Provider Nurse Practitioner Family; Visit Provider Internal Medicine Gastroenterology
PROC: 0DJ08ZZ Inspection of Upper Intestinal Tract, Via Natural or Artificial Opening Endoscopic (ICD-10-PCS; CPT 43249; principal; 2024-10-12 14:00)
DX: K22.2 Esophageal obstruction (principal); K44.9 Diaphragmatic hernia without obstruction or gangrene; I10 Essential (primary) hypertension; G62.9 Polyneuropathy, unspecified; Z79.1 Long term (current) use of non-steroidal anti-inflammatories (NSAID); Z98.890 Other specified postprocedural states; Z87.19 Personal history of other diseases of the digestive system
CPT/HCPCS: 43249; C1726; J2003; J2704; J7120

== ENCOUNTER 2024-10-28 08:07 | Outpatient (CLI) | payer MEDICARE, SELFPAY ==
--- OUTSIDE RECORDS SUMMARY | 2024-10-28 08:19 | XMS_ITS | Clinical Summary ---
Author Organization [facility] Address [address] [place] [address] Care Team Providers Care Welder Tool And Die Name Role Phone Dario Jennings MD Primary [...] (500 mcg total) by mouth daily. 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 Legal Sex Male 9:52 AM CDT Gender Identity Not on file Sexual Orientation Not on file Last Filed Vital Signs Vital Sign Reading Time Taken Comments Blood Pressure 119/72 07/15/2024 10:07 AM RAILROAD CAR TRUCK BUILDER Pulse 72 07/15/2024 10:07 AM RAILROAD CAR TRUCK BUILDER Temperature 37.4 C (99.3 F) 07/15/2024 10:07 AM RAILROAD CAR TRUCK BUILDER Respiratory Rate - - Oxygen Saturation 97% 05/27/2024 8:59 AM RAILROAD CAR TRUCK BUILDER Inhaled Oxygen Concentration - - Weight 84.2 kg (185 lb 9.6 oz) 07/15/2024 10:07 AM RAILROAD CAR TRUCK BUILDER Height 170.2 cm (5' 7 ) 07/15/2024 10:07 AM RAILROAD CAR TRUCK BUILDER Body Mass Index 29.07 07/15/2024 10:07 AM RAILROAD CAR TRUCK BUILDER Plan of Treatment Health Maintenance Due Date Last Done Comments Colorectal Cancer Screening Colonoscopy (10 Years) 1950 Hepatitis C 02/20/1968 DTaP, Tdap and Td Vaccines ( 1 - Tdap) 1969 Pneumococcal Vaccine: 50+ Years (1 of 1 - PCV) 02/20/2000 Zoster Vaccines (1 of 2) 02/20/2000 Annual Medicare Wellness Visit 2015 COVID-19 Vaccine (3 - 2023-2 5 season) 2024 10/31/2020, 10/10/2020 PHQ-2 (Physician [place]) 06/23/2024 RSV Immunization or 60+ Years (1 [...] complete this topic Insurance HUMANA Care Teams Welder Tool And Die Relationship Specialty Start Date End Date Dario Jennings MD [address] [place] [address] PCP - General FAMILY PRACTICE 01/08/24
--- OUTSIDE RECORDS SUMMARY | 2024-10-28 08:20 | XMS_ITS | Clinical Summary ---
Author Organization [facility] [address] [employer] Address [address] [place] [address] Care Team Providers Care Analytics Associate Name Role Phone Dario Jennings MD Primary Care Provider [phone] Allergies No known active allergies Medications meloxicam [...] 5 mg by mouth daily Active om 8-zvm-gxi-B12- MJ-W3-wewojnx 500 mg-500 mcg -1 mg-12.5 mg capsule [...] Insurance [employer] CHOICE MEDICARE PPO Care Teams Analytics Associate Relationship Specialty Start Date End Date Dario Jennings MD PCP - General Family Medicine 09/10/22
--- OUTSIDE RECORDS SUMMARY | 2024-10-28 08:20 | XMS_ITS | Referral Summary ---
Author Organization [facility] [address] [employer] Address [address] [facility] [place] [address] Care Team Providers Care Ship'S Officer Name Role Phone Dario Jennings MD Primary Care Provider [phone] Allergies No known active allergies Medications meloxicam [...] 5 mg by mouth daily Active om 0-ezh-hbe-B12- AL-Q4-shopslw 500 mg-500 mcg -1 mg-12.5 mg capsule [...] Insurance [employer] CHOICE MEDICARE PPO Care Teams Ship'S Officer Relationship Specialty Start Date End Date Dario Jennings MD PCP - General Family Medicine 09/10/22
--- OUTSIDE RECORDS SUMMARY | 2024-10-28 08:20 | XMS_ITS | Data Portability ---
Author Organization [place] [facility] [employer], Main Office Address [address] [place] [address] Care Team Providers Care Extrusion Die Coordinator Name Role Phone CARISA JENNINGS Primary Care Provider CARISA JENNINGS Referring Provider [phone] Assessment Encounter Date Assessment Date Assessment LastModified by Organization Details LastModified Time 02/12/2023 02/12/2023 Impression: Patient has tricompartmental osteoarthritis of both knees severe fixk-fs-wnlp medial lateral compartment osteoarthritis each knee. His [...] very well in patients that have advanced wnze-zc-kano arthritis is no longer get cortisone injections. This study show that it does better in patients niih-zp-qbnynjee arthritis. I explained this is something I [...] will not help the knee that has oisq-ld-ueln arthritis as already has full-thickness cartilage loss [...] more than half the time spent in hnhh-hu-ddlk care. I am happy to see him [...] XR, knee 023 02/13/20 [email or web address] [facility] [place], [address], [place], [address], 09:28:49 Medication Orders None record ed. Patient TargetsNo targets recorded. Patient InstructionsNo instructions recorded. Reason for Referral None Reported. Results Created Date Observation Date Name Description Value Unit Range Abnormal Flag Note LastModifiedBy Organization Detail LastModifiedTime 02/13/20 XR, knee No observ ation record ed. [email or web address] [facility] [place] [address], [place], [address], 02/12/2023 19:41:22 Result Notes None recorded. Problems Name Problem SNOMED Code Status Onset Date Resolution Date Notes Provider Name and Address Organization Details Recorded Time Pain of bilateral knee joints [id number] 4 Active 2022 Selina HERBIE Guevara [employer] [facility] 09:07:44 Problem Notes None recorded. Procedures Surgical History None recorded. Imaging Results Imaging Date Name Status LastModified by Organiz ation Details LastModified Time 02/12/2023 XR, knee completed [email or web address] [facility] [place] [address], [place], [address], 02/12/2023 19:41:22 Procedure Notes None recorded. Medical [...] Updated DateTime 02/12/2023 172.72 cm 27.2 kg/m2 90305.03 g Selina HERBIE Guevara [employer] 02/12/2023 09:09:51 Social History Question Answer Notes LastModified by Organizat ion Details LastModified Time Tobacco Smoking Status Never Smoker Selina HERBIE Guevara [employer] [facility] 02/12/2023 09:07:00 What Is Your Level Of Alcohol Consumption? None [email or web address] Information not available 02/12/2023 Sex: Unknown Functional Status None recorded. Mental Status None recorded. Family History Relationship Description Onset Age of this Age Resolved Age Notes LastModified by Organization Details LastModified Time Father Family history of malignant neoplasm [email or web address] Not available 2022 09:06:53 Mother Family history of malignant neoplasm [email or web address] Not available 2022 09:06:53 Medical History Condition Response ARTHRITIS Y Past Encounters Encounter ID Performer Location Encounter Start Date Encounter Closed Date Diagnosis/Indication Diagnosis SNOMED-CT Code Diagnosis ICD10 Code Diagnosis Note [id number] Gary Nava MD [facility] [place] [address] [place] [address] 02/12/2023 08:42:04 02/13/2023 09:28:49 Pain of bilateral knee joints [id number] 08590 M25.561 M25.562 Health Concerns Section Related Observation LastModified by Organization Detai ls LastModified Time None Recorded Concern Status LastModified by Organization Details LastModified Time None Recorded Advance Directives Directive None Recorded Payers Encounter Date Sequence Insurance Name Policy Number Policy Tijerina Covered Member ID Tijerina Member ID Guarantor Name 02/12/2023 1 [employer] (MEDICARE REPLACEMENT/A DVANTAGE - HMO) Roberto Norwood [id number] Roberto Norwood Notes Date Note Type Note [...] remains very active. 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 Gary Nava MD [address] [place] [address], [place], [address], [place] [facility] 02/12/2023 19:47:17
--- OUTSIDE RECORDS SUMMARY | 2024-10-28 08:20 | XMS_ITS | Clinical Summary ---
Author Organization [facility] Address [address] [place] [address] Care Team Providers Care Laundromat Worker Name Role Phone Unavailable Primary Care Provider [...] by intramuscular injection twice weekly. 3 Active [place] [id number] ytosterol 500 mg-500 mcg -1 mg-12.5 mg Capsule Take by mouth. Activ e calcium as CARBONATE-michelle min D3 500 mg-10 mcg (400 unit) tablet Take 1 Tablet by mouth daily. Active MAGNESIUM CITRATE ORAL Take by mouth daily. Active Active Problems No known active problems Encounters Date Type Department Care Team Description 10/08/2024 8:30 AM CDT Office Visit [facility] Oncology and Hematology - [facility] [address] [place] [address] Black Cisneros MD Leukocytosis, unspecified type (Primary Dx) 09/29/2024 Orders Only [facility] Hematology [address] [place] [address] Black Cisneros MD 09/28/2024 External Device Data STL ABSTRACTION Provider, Abstract 09/28/2024 External Device Data STL ABSTRACTION Provider, Abstract 09/28/2024 External Device Data STL ABSTRACTION Provider, Abstract 09/28/2024 Orders Only [facility] Oncology and Hematology - [place] [address] [place] [address] Black Cisneros MD 09/23/2024 Abstract [facility] Oncology and Hematology - [place] [address] [place] [id number] Black Cisneros MD 09/23/2024 Orders Only [facility] Oncology and Hematology - [place] [address] [place] [address] Black Cisneros MD 09/22/2024 10:30 AM CDT Office Visit [facility] Oncology and Hematology [facility] [address] Black Cisneros MD Leukocytosis, unspecified type [...] Description 04/22/2025 8:30 AM CDT Office Visit [facility] Oncology and Hematology - [facility] [address] [facility] [address] [place] [address] Black Cisneros MD [address] [facility] [address] [place] [address] Health Maintenance Due Date Last Done Comments DTAP/TDAP/TD VACCINES (1 - Tdap) 1969 COLORECTAL SCREENING 1995 Colorectal Cancer Screening 1995 FIT-DNA Q 3 years 1995 FIT/FOBT Q 1 year 1995 Flex Sig/CT Colonography Q 5 years 1995 PNEUMOCOCCAL VACCINE 50+ YEARS (1 of 1 - PCV) 02/20/20 00 ZOSTER VACCINE (1 of 2) 02/20/2000 INFLUENZA VACCINE (#1) 2024 RSV VACCINE (60+ or ) (1 - [...] Resu lt from Last [address] [facility]
[2024-10-28 09:09] LABS: Urine Cotinine NEGATIVE
== END 2024-10-28 08:08 | disposition home or self-care (01) ==
LOC: ANHSURGERY 08:12
PROVIDERS: PCP Family Medicine; Visit Provider Orthopaedic Surgery
DX: M17.11 Unilateral primary osteoarthritis, right knee (principal); N52.9 Male erectile dysfunction, unspecified; R97.20 Elevated prostate specific antigen [PSA]; Z12.5 Encounter for screening for malignant neoplasm of prostate; Z01.818 Encounter for other preprocedural examination
CPT/HCPCS: 36415; 80307; 83036; 84153; 86850; 86900; 86901; 87081

== ENCOUNTER 2024-10-28 08:14 | Outpatient (CLI) | payer MEDICARE, SELFPAY ==
[2024-10-28 09:29] LABS: Prostate Specific Antigen 4.6 ng/mL (< OR = 4.0)
== END 2024-10-28 08:15 | disposition home or self-care (01) ==
LOC: ANHLAB 08:16
PROVIDERS: PCP Family Medicine; Visit Provider Family Medicine
DX: N52.9 Male erectile dysfunction, unspecified (principal); R97.20 Elevated prostate specific antigen [PSA]; Z12.5 Encounter for screening for malignant neoplasm of prostate
CPT/HCPCS: 36415; 84153

== ENCOUNTER 2024-11-08 01:15 | Day surgery (SDC) | payer MEDICARE, SELFPAY ==
--- NOTE | 2024-10-25 13:30 | PC.NURSE ---
Report to the Outpatient Waiting Room, entrance under the green pavilion located off [facility], at time __6 AM on date _11/08/24 . Planned Procedure Time: _7:30 AM . Time changes happen often and if your time is changed the preop area will call you the afternoon before. - You and your visitor will be asked to self-screen and do not enter if you have any COVID symptoms. Please call surgeon if you need to reschedule. - A mask is optional within the hospital at this time. Patients may have clear liquids (water, carbonated beverages, clear teas, apple juice) until 3 hours prior to surgery ( 4:30 AM) with a maximum of 20 ounces. - No food from midnight until time of surgery and no smoking, or chewing tobacco (or any form of nicotine). No chewing gum, candy or mints. - Take only the following medications with a SIP of water on the morning of surgery: __AMLODIPINE, DO NOT STOP ANY OF YOUR OTHER PRESCRIPTION MEDICATIONS PRIOR TO SURGERY EXCEPT THE FOLLOWING Hold all vitamins and supplements for PT STATES .LAST DOSE 7 DAYS PRE OP PER DR CHANG LAST DOSE 10/31/24 Medications to discontinue per physician NONE MAY CONTINUE CELECOXIB BUT DO NOT TAKE MORNING OF SURGERY Please no make-up, nail cuban, hairspray, perfume, deodorant, or body powder the day of surgery. No jewelry (including any body piercings) or valuables the day of surgery, leave them at home. Please take a shower or bath the night before, or the morning of, surgery with an antibacterial soap. Wear comfortable, loose fitting clothing. Children are encouraged to wear pajamas. - Jewelry must be removed prior to entering the operating room. Rings and piercings that are not removed may be cut off. - The hospital will not accept responsibility for valuables. - Please leave all valuables, including medications, at home the day of surgery. If you are going home after surgery, a licensed star route mail driver must drive you home. - NO public transportation without another adult if you receive anesthesia. - We recommend that an adult stay with you for 24 hours following discharge. - We also recommend that you do not drive, make important decision, drink alcoholic beverages, or take any drugs that were not prescribed by your health care provider for at least 24 hours after your discharge time. Follow any additional instructions given to you from your surgeon. Telephone instructions given to _PATIENT and asked if any additional questions and then verbalized understanding. Patient advised to call surgeon office or pre surgery nurse liaison [phone] if any additional questions.
[2024-10-25 13:59] VITALS: BMI 26.4
--- NOTE | 2024-11-05 08:11 | P.HP_ITS ---
H&P: HPI History of Present Illness Date/Time: 11/05/24 08:11 Chief Complaint: Right knee DJD Narrative: 74-year-old male presents today for right total knee arthroplasty. He underwent left total knee arthroplasty he in July of this year. He had an uneventful recovery. He has done very well and is very happy with his results. He has good range of motion and no pain in the left knee. Patient feels that he has recovered well and is ready proceed with right total knee. Patient has severe bicompartmental osteoarthritis in the right knee. He continues to be very painful for him. He has had injections in the past, none in the last 3-4 months. He has been different anti-inflammatories and currently is taking Celebrex 200 mg daily. Review of Systems Review of Systems: All systems reviewed & are unremarkable except as noted in HPI and below PMFSH Past Medical History Medical History Esophageal stricture History of esophageal dilatation x2 Gout Gastroesophageal reflux disease Neuropathy of left hand Hypertension Surgical History Surgical History History of arthroplasty of left knee History of tonsillectomy History of hand surgery Family History Family History Other Diabetes mellitus Social History Social History Social History: Surrogate medical decision maker: Neelam Norwood, spouse. Code status: Full code. Smoking status: Never smoker Second hand tobacco smoke exposure: No Additional smoking assessment comments: DENIES ANY FORM OF TOBACCO USE Alcohol intake: never Substance use: never Substance use type: does not use Do You Feel Safe in your Home?: Yes Lack of Transportation: No Lack of Food: Never True Current Housing: I Have Housing Concerned About Future Housing: No Difficulty Paying Gas/Electric Bills: No Difficulty Paying for Meds: No Currently Unemployed: No Education: High School Diploma/GED Difficulty w/ Childcare or Family Care: No Living arrangements: with family Additional living arrangements comments: Occupation/Education: occupation 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 Spiritual care concerns: No Meds Home Medications and Allergies Home Medications Medication Instructions Recorded Confirmed Type Daily Multiple For Men 1 tab-cap PO DAILY 09/25/21 10/28/24 History ascorbic acid (vitamin C) 500 mg 500 mg PO BID 09/25/21 10/28/24 History capsule calcium 600 mg (as 1 tablet PO DAILY 09/25/21 10/28/24 History carbonate)-vitamin D3 10 mcg (400 unit) tablet (Calcium with Vitamin D) cyanocobalamin (vitamin B-12) 1,000 mcg PO BID 09/25/21 10/28/24 History 1,000 mcg tablet (Vitamin B-12) magnesium 500 mg tablet 500 mg PO BID 09/25/21 10/28/24 History amlodipine 10 mg tablet 10 mg PO DAILY 02/13/24 10/28/24 History omega-3 fatty acids 500 mg capsule 500 mg PO DAILY 03/19/24 10/28/24 History tadalafil 20 mg tablet 20 mg PO DAILY PRN sexual activity 03/19/24 10/28/24 History famotidine 40 mg tablet 40 mg PO DAILY 06/04/24 10/28/24 History celecoxib 200 mg capsule See Rx Instructions .Route 08/16/24 10/28/24 Rx .COMPLEX #180 caps testosterone cypionate 200 mg/mL 80 mg IM WEEKLY 09/06/24 10/28/24 History intramuscular oil acetaminophen 500 mg tablet 1,000 mg PO Q4H PRN pain 10/25/24 10/28/24 History (Acetaminophen Pain Relief) turmeric root extract 500 mg 500 mg PO DAILY 10/28/24 10/28/24 History capsule Allergies Allergy/AdvReac Type Severity Reaction Status Date / Time ximena Allergy Severe Swelling Verified 10/25/24 13:31 of Lip/Tongue/Throat poison enedelia extract Allergy Intermediate Blister Verified 10/25/24 13:31 hydrochlorothiazide AdvReac Mild gout Verified 10/25/24 13:31 Exam Narrative: 74-year-old male alert pleasant. BMI is 26.5. Right knee range of motion is from 10-100 degrees. He has moderately large effusion. Normal AP and varus valgus stability in the knee. 2+ dorsalis pedis pulse palpable. Normal sensation right lower extremity. Hip range of motion is full without discomfort, negative Stinchfield maneuver. Normal quad strength. Resp: Auscultation: clear to auscultation bilaterally Cardio: Rate: regular rate Rhythm: regular rhythm Assessment and Plan Assessment and plan (1) Right knee DJD: Code(s): M17.11 - Unilateral primary osteoarthritis, right knee Status: Acute Assessment and Plan: 74-year-old male who has done very well with his left total knee arthroplasty earlier this year. He has severe osteoarthritis in the right knee which continues to be very symptomatic for him. He has limited range of motion. Again he feels he has recovered well from his 1st surgery and is ready proceed with total knee arthroplasty on the right. Surgical procedures well as the risks and complications were discussed in detail all questions were answered we will proceed. Patient may continue with Celebrex to the time surgery. He should avoid any aspirin or ibuprofen products 1 week prior to surgery. Patient's nasal swab was negative. Hemoglobin 13.5 platelets were 317. Chem panel is all within normal limits creatinine 0.73.
[2024-11-08] VITALS (13 sets, daily range): BP systolic 122–148; BP diastolic 54–78; PULSE 50–70; RESP 12–20; TEMP 36.1–37; O2SAT 93–98
--- NOTE | ~2024-11-08 | XR_ITS ---
EXAMINATION: [id number] DATE: 11/08/2024 12:15 INDICATION: Postoperative evaluation following right total knee arthroplasty. TECHNIQUE: Anteroposterior and lateral views of the right knee were obtained. COMPARISON: None. FINDINGS: Right total knee arthroplasty without patellar resurfacing appears well seated and in near anatomic a lignment. No fractures identified. Expected postoperative subcutaneous, intramedullary and intra-art icular gas. IMPRESSION: 1. Right total knee arthroplasty, negative for postoperative purposes. Reviewed, dictated and finalized at location A.
--- OUTSIDE RECORDS SUMMARY | 2024-11-08 01:18 | XMS_ITS | Clinical Summary ---
Author Organization [facility] Address [address] [place] [address] Care Team Providers Care Referral Coordinator Name Role Phone Dario Jennings MD Primary Care Provider [phone] Allergies Active Allergy Reactions Criticality Noted Date Comments Nixon Flavoring Agent (Non-Screening) Swelling 05/27/2024 Poison Myrna Extract Other (see comment) 05/27/20 Swelling Medications amLODIPine (NORVASC) 10 MG tablet 04/14/20 24 Active vitamin C (ASCORBIC ACID) 500 MG tablet Active Calcium Carb-Cholecalc iferol 500-10 MG-MCG Chew Tab Chew 1 tablet by mouth daily. Active vitamin B-12 (CYANOCOBALAMI N) 500 MCG tablet Take 1 tablet (500 mcg total) by mouth daily. Active VO-T8-W99-Omeg a 3-Phytosterols (BP VIT 3) 1 MG [...] Sex Assigned at Male 07/15/2024 10:06 AM LEAD DATABASE DEVELOPER Legal Sex Male 9:52 AM CDT Gender Identity Not on file Sexual Orientation Not on file Last Filed Vital Signs Vital Sign Reading Time Taken Comments Blood Pressure 119/72 07/15/2024 10:07 AM LEAD DATABASE DEVELOPER Pulse 72 07/15/2024 10:07 AM LEAD DATABASE DEVELOPER Temperature 37.4 C (99.3 F) 07/15/2024 10:07 AM LEAD DATABASE DEVELOPER Respiratory Rate - - Oxygen Saturation 97% 05/27/2024 8:59 AM LEAD DATABASE DEVELOPER Inhaled Oxygen Concentration - - Weight 84.2 kg (185 lb 9.6 oz) 07/15/2024 10:07 AM LEAD DATABASE DEVELOPER Height 170.2 cm (5' 7 ) 07/15/2024 10:07 AM LEAD DATABASE DEVELOPER Body Mass Index 29.07 07/15/2024 10:07 AM LEAD DATABASE DEVELOPER Plan of Treatment Health Maintenance Due Date Last Done Comments Colorectal Cancer Screening Colonoscopy (10 Years) 1950 Hepatitis C 02/20/1968 DTaP, Tdap and Td Vaccines ( 1 - Tdap) 1969 Pneumococcal Vaccine: 50+ Years (1 of 1 - PCV) 02/20/2000 Zoster Vaccines (1 of 2) 02/20/2000 Annual Medicare Wellness Visit 2015 COVID-19 Vaccine (3 - 2023-2 5 season) 2024 10/31/2020, 10/10/2020 PHQ-2 (Physician [place]) 06/23/2024 RSV Immunization or 60+ Years (1 [...] complete this topic Insurance [employer] Care Teams Referral Coordinator Relationship Specialty Start Date End Date Dario Jennings MD [address] [place] [address] PCP - General FAMILY PRACTICE 01/08/24
--- OUTSIDE RECORDS SUMMARY | 2024-11-08 01:19 | XMS_ITS | Clinical Summary ---
Author Organization [facility] [address] Address [address] [place] [address] Care Team Providers Care Systems Accountant Name Role Phone Dario Jennings MD Primary Care Provider [phone] Allergies No known active allergies Medications meloxicam [...] 5 mg by mouth daily Active om 0-ojk-hfo-B12- TL-T3-jgahpuj 500 mg-500 mcg -1 mg-12.5 mg capsule [...] Insurance [employer] CHOICE MEDICARE PPO Care Teams Systems Accountant Relationship Specialty Start Date End Date Dario Jennings MD PCP - General Family Medicine 09/10/22
--- OUTSIDE RECORDS SUMMARY | 2024-11-08 01:19 | XMS_ITS | Referral Summary ---
Author Organization [facility] [address] Address [address] [place] [address] Care Team Providers Care Customer Support Associate Name Role Phone Dario Jennings MD Primary Care Provider [phone] Allergies No known active allergies Medications meloxicam [...] 5 mg by mouth daily Active om 1-stw-mqf-B12- KU-T3-ywavxzd 500 mg-500 mcg -1 mg-12.5 mg capsule [...] Insurance [employer] CHOICE MEDICARE PPO Care Teams Customer Support Associate Relationship Specialty Start Date End Date Dario Jennings MD PCP - General Family Medicine 09/10/22
--- OUTSIDE RECORDS SUMMARY | 2024-11-08 01:19 | XMS_ITS | Clinical Summary ---
Author Organization [facility] Address [address] [place] [address] Care Team Providers Care Aerial Applicator Pilot Name Role Phone Unavailable Primary Care Provider [...] by intramuscular injection twice weekly. 3 Active [place] [id number]-[id number]-Fq ytosterol 500 mg-500 mcg -1 mg-12.5 mg Capsule Take by mouth. Activ e calcium as CARBONATE-michelle min D3 500 mg-10 mcg (400 unit) tablet Take 1 Tablet by mouth daily. Active MAGNESIUM CITRATE ORAL Take by mouth daily. Active Active Problems No known active problems Encounters Date Type Department Care Team Description 10/08/2024 8:30 AM CDT Office Visit [facility] Oncology and Hematology - [place] [address] [place] [address] Black Cisneros MD Leukocytosis, unspecified type (Primary Dx) 09/29/2024 Orders Only [facility] Oncology and Hematology [facility] [address] [place] [address] Black Cisneros MD 09/28/2024 External Device Data STL ABSTRACTION Provider, Abstract 09/28/2024 External Device Data STL ABSTRACTION Provider, Abstract 09/28/2024 External Device Data STL ABSTRACTION Provider, Abstract 09/28/2024 Orders Only [facility] Oncology and Hematology - [place] [address] [place] [address] lBack Cisneros MD 09/23/2024 Abstract [facility] Oncology and Hematology - [place] [address] [place] [phone] Black Cisneros MD 09/23/2024 Orders Only [facility] Oncology and Hematology - [place] [address] [place] [address] Black Cisneros MD 09/22/2024 10:30 AM CDT Office Visit [facility] Oncology and Hematology [facility] [address] Black Cisneros MD Leukocytosis, unspecified type [...] 04/22/2025 8:30 AM CDT Office Visit [facility] Oncology and Hematology - [place] [address] [facility] [address] [place] [address] Black Cisneros MD [address] [facility] [address] [place] [address] Health Maintenance Due Date Last [...] Resu lt from Last [address] [facility]
--- OUTSIDE RECORDS SUMMARY | 2024-11-08 01:19 | XMS_ITS | Data Portability ---
Author Organization [place] [facility] Main Office Address [address] [place] [address] Care Team Providers Care Wreath Maker Name Role Phone CARISA JENNINGS Primary Care Provider CARISA JENNINGS Referring Provider [phone] Assessment Encounter Date Assessment Date Assessment LastModified by Organization Details LastModified Time 02/12/2023 02/12/2023 Impression: Patient has tricompartmental osteoarthritis of both knees severe mrbb-yz-nmqs medial lateral compartment osteoarthritis each knee. His [...] very well in patients that have advanced cbfo-pq-qdny arthritis is no longer get cortisone injections. This study show that it does better in patients xqxm-xm-pzeppfcd arthritis. I explained this is something I [...] will not help the knee that has cpru-rd-gekw arthritis as already has full-thickness cartilage loss [...] more than half the time spent in hzlm-ta-qmli care. I am happy to see him [...] XR, knee 023 02/13/20 [email or web address] [facility] [place], [address], [place], [address], 09:28:49 Medication Orders None record ed. Patient TargetsNo targets recorded. Patient InstructionsNo instructions recorded. Reason for Referral None Reported. Results Created Date Observation Date Name Description Value Unit Range Abnormal Flag Note LastModifiedBy Organization Detail LastModifiedTime 02/13/20 XR, knee No observ ation record ed. [email or web address] [facility] [place] [address], [place], [address], 02/12/2023 19:41:22 Result Notes None recorded. Problems Name Problem SNOMED Code Status Onset Date Resolution Date Notes Provider Name and Address Organization Details Recorded Time Pain of bilateral knee joints [id number] 4 Active 2022 HERBIE Gallagher [employer] 09:07:44 Problem Notes None recorded. Procedures Surgical History None recorded. Imaging Results Imaging Date Name Status LastModified by Organiz ation Details LastModified Time 02/12/2023 XR, knee completed [email or web address] [facility] [place] [address], [place], [address], 02/12/2023 19:41:22 Procedure Notes None recorded. Medical [...] ar oil INJECT ITRAMUSCU LARLY 0.5 ML TWICE(MON & TH) A WEEK FOR 12 WEEKS. [...] Updated DateTime 02/12/2023 172.72 cm 27.2 kg/m2 40274.03 g HERBIE Gallagher [employer] 02/12/2023 09:09:51 Social History None recorded. Functional Status Question Answer Note LastModified by Organization D etails LastModified Time What is your level of alcohol consumption? None [email or web address] Information not available 02/12/2023 Mental Status None recorded. Family History Relationship Description Onset Age of this Age Resolved Age Notes LastModified by Organization Details LastModified Time Father Family history of malignant neoplasm Not available 2022 09:06:53 Mother Family history of malignant neoplasm [email or web address] Not available 2022 09:06:53 Medical History Condition Response ARTHRITIS Y Past Encounters Encounter ID Performer Location Encounter Start Date Encounter Closed Date Diagnosis/Indication Diagnosis SNOMED-CT Code Diagnosis ICD10 Code Diagnosis Note [id number] Gary Nava MD [facility] [place] [address] [place] [address] 02/12/2023 08:42:04 02/13/2023 09:28:49 Pain of bilateral knee joints [id number] 15969 M25.561 M25.562 Health Concerns Section Related Observation LastModified by Organization Detai ls LastModified Time None Recorded Concern Status LastModified by Organization Details LastModified Time None Recorded Advance Directives Directive None Recorded Payers Encounter Date Sequence Insurance Name Policy Number Policy Tijerina Covered Member ID Tijerina Member ID Guarantor Name 02/12/2023 1 [employer] (MEDICARE REPLACEMENT/A DVANTAGE - HMO) Roberto Norwood [id number] Roberto Norwood Notes Date Note Type Note [...] remains very active. 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 Gary Nava MD [address] [facility], [place], [address], [place] [employer] [facility] 02/12/2023 19:47:17
[2024-11-08] MEDS: ACETAMINOPHEN 500 MG TABLET 1000 MG PO (06:20)
[2024-11-08] MEDS: TRANEXAMIC ACID 1,000MG/ISO100 1,000 MG/100 ML BAG 200 MG IVPB (06:25)
[2024-11-08] MEDS: LACTATED RINGERS 1,000 ML 30 ML IV CONT ×2 (06:25→12:03)
[2024-11-08] MEDS: VANCOMYCIN 1,250 MG/NS 250 ML BAG 166.67 MG IVPB (06:45)
--- NOTE | 2024-11-08 07:02 | WPDHPUPDATE1 ---
History and Physical Update Update Date/Time: 11/08/24 07:02 History and Physical has been reviewed, including an updated exam of the patient. There are NO changes in the patient's condition. Risks, benefits, and alternatives have been discussed and questions answered. Patient agrees to proceed with procedure.
--- NOTE | 2024-11-08 07:23 | P.PNAN_ITS ---
Anes - Initial Pre Proc Eval Procedure: Operation Date: 11/08/24 07:30 Proposed Procedures p Right Total Knee Arthroplasty - Gary Nava MD Date/Time: 11/08/24 07:23 Surgeon: Gary Nava MD Pre Op Diagnosis: OA right knee Patient Data Age: 74 Gender: M Height: 1.73 m Weight: 79 kg Last Vital Signs Temp 36.4 C 11/08/24 07:09 Pulse 56 L 11/08/24 07:09 Resp 18 11/08/24 07:09 BP 148/61 H 11/08/24 07:09 Pulse Ox 98 11/08/24 07:09 O2 Del Method Room Air 11/08/24 07:09 Allergies Allergy/AdvReac Type Severity Reaction Status Date / Time ximena Allergy Severe Swelling Verified 11/08/24 06:58 of Lip/Tongue/Throat poison enedelia extract Allergy Intermediate Blister Verified 11/08/24 06:58 hydrochlorothiazide AdvReac Mild gout Verified 11/08/24 06:58 Home Medications Medication Instructions Recorded Confirmed Type Daily Multiple For Men 1 tab-cap PO DAILY 09/25/21 11/08/24 History ascorbic acid (vitamin C) 500 mg 500 mg PO BID 09/25/21 11/08/24 History capsule calcium 600 mg (as 1 tablet PO DAILY 09/25/21 11/08/24 History carbonate)-vitamin D3 10 mcg (400 unit) tablet (Calcium with Vitamin D) cyanocobalamin (vitamin B-12) 1,000 mcg PO BID 09/25/21 11/08/24 History 1,000 mcg tablet (Vitamin B-12) magnesium 500 mg tablet 500 mg PO BID 09/25/21 11/08/24 History amlodipine 10 mg tablet 10 mg PO DAILY 02/13/24 11/08/24 History omega-3 fatty acids 500 mg capsule 500 mg PO DAILY 03/19/24 11/08/24 History tadalafil 20 mg tablet 20 mg PO DAILY PRN sexual activity 03/19/24 10/28/24 History famotidine 40 mg tablet 40 mg PO DAILY 06/04/24 11/08/24 History celecoxib 200 mg capsule See Rx Instructions .Route 08/16/24 11/08/24 Rx .COMPLEX #180 caps testosterone cypionate 200 mg/mL 80 mg IM WEEKLY 09/06/24 11/08/24 History intramuscular oil acetaminophen 500 mg tablet 1,000 mg PO Q4H PRN pain 10/25/24 10/28/24 History (Acetaminophen Pain Relief) turmeric root extract 500 mg 500 mg PO DAILY 10/28/24 11/08/24 History capsule Patient hx anesthesia problems: none Family hx anesthesia problems: none Results Review: All pre-operative results and documents have been reviewed as part of the pre- operative evaluation. [facility] Past Medical History Medical History Esophageal stricture History of esophageal dilatation x2 Gout Gastroesophageal reflux disease Neuropathy of left hand Hypertension Surgical History Surgical History History of arthroplasty of left knee History of tonsillectomy History of hand surgery Family History Family History Other Diabetes mellitus Social History Social History Social History: Surrogate medical decision maker: Neelam Norwood, spouse. Code status: Full code. Smoking status: Never smoker Second hand tobacco smoke exposure: No Additional smoking assessment comments: DENIES ANY FORM OF TOBACCO USE Alcohol intake: never Substance use: never Substance use type: does not use Do You Feel Safe in your Home?: Yes Lack of Transportation: No Lack of Food: Never True Current Housing: I Have Housing Concerned About Future Housing: No Difficulty Paying Gas/Electric Bills: No Difficulty Paying for Meds: No Currently Unemployed: No Education: High School Diploma/GED Difficulty w/ Childcare or Family Care: No Living arrangements: with family Additional living arrangements comments: Occupation/Education: occupation 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 Informed Consent: The patient's anesthetic plan and its attendant risks and benefits were discussed with the patient/family/POA. Questions were solicited and answers provided to the satisfaction of the patient/family/POA.
[2024-11-08] MEDS: ceFAZolin 2 GM/D5W 50 ML 2 GM/50 ML BAG IVPB ×3 (07:28→23:32)
[2024-11-08] MEDS: SODIUM CHLORIDE 0.9% IV 37.7 ML, MORPHINE SULFATE INJ (*CRX) 2 MG, ROPivacaine HCL 1% 2... INFILTRATE (08:06)
[2024-11-08] MEDS: ceFAZolin SODIUM 1 GM VIAL 2 GM IV PUSH (11:03)
[2024-11-08] MEDS: TRANEXAMIC ACID 1,000 MG/10 ML AMPUL 1000 MG IV PUSH (11:03)
[2024-11-08] MEDS: KETOROLAC 15 MG/ML VIAL (*BKC) 7.5 MG IV PUSH ×3 (11:05→23:23)
--- NOTE | 2024-11-08 12:12 | PM.OP ---
Procedure Note - Brief Procedure Note - Brief Date of procedure: 11/08/24 OA right knee Procedure performed: Right total knee arthroplasty Surgeon: RONNELL Saucedo Findings: 74 mi underwent right total knee arthroplasty on 11/08. I was involved in the procedure including positioning the patient on the OR table in 1st assisting through the time surgery. Total time spent was 4 hours
--- NOTE | 2024-11-08 12:15 | W.PM.PROC2 ---
Procedure Note - Detailed Date of Procedure 11/08/24 Pre-op Diagnosis OA right knee Post-op Diagnosis Same Procedure Performed Right total knee arthroplasty Surgeon Gary Nava MD [employer] Oren Anesthesia General Description of Procedure Patient was brought to the operating room and general anesthesia was administered. He received 2 g Ancef, weight based vancomycin, 1 g of TXA preoperatively. Under anesthesia there was a flexion contracture. The right leg was prepped draped usual fashion. Limb was exsanguinated tourniquet elevated to 265 mmHg. A 7 in longitudinal midline incision was used and a standard parapatellar arthrotomy utilized. There was dense scarred bland thick synovitis. Anterior synovectomy was performed which helped mobilize the quadriceps. Quadriceps synovectomy carried out. Partial excision of infrapatellar fat pad was performed and suprapatellar fat pad was excised. The patella showed moderate chondromalacia involving the medial aspect. Osteophytes were removed. I felt the patella was suitable for non resurfacing a conservative lateral facetectomy was performed. A guide lo was inserted on femoral canal after aspiration of canal contents. He had complete eburnation of the distal portion of the medial femoral condyle and unusual bone wear resulting in deficiency of the lateral 50% of the distal and posterior lateral femoral condyle. To be conservative we elected to remove 8 mm of bone from the distal femur. Next the tibial plateau was cut. Initial cut was made just under the subchondral bone of the medial tibial plateau. This did not quite reach the floor of the deep defect in the posterolateral lateral tibial plateau I elected to remove an additional 2 mm of bone from the tibial plateau which left a very small 1 mm deep deficiency in the posterolateral lateral tibial plateau that was contained. This was made perpendicular to the axis of the tibia. Meniscal remnants were excised the PCL was recessed. Flexion gap measured 14 mm laterally 10 mm medially. The femoral sizing guide was set at 5° of external rotation which matched Whitesides line. Fortunately this rested on the column of bone that was not deficient the medial aspect of the posterior surface of the lateral femoral condyle. Posterior referencing pinholes were placed and the size 70 vanguard cutting block applied AP and chamfer cuts made this gave a flush cut anteriorly and was narrow in the mediolateral dimension of the femur. We inserted the 11 CR insert which had ample play in flexion but was too tight in extension. Additional 2 mm of bone removed the distal femur. Posterior femoral osteophytes removed. The tibia was sized to a size 79 which fit line to line anteromedial to posterolateral. This was punched. In flexion I felt the 11 would be appropriate. We were too tight in extension laterally. The iliotibial band was not excessively tight and had flexibility in extension. Posterolateral corner release was performed between the lateral collateral ligament and the popliteus tendon which were left intact. Posterior capsule release was performed from the distal femur. On read trialing I felt that the knee was a little bit too loose with the 11 at 90° relative to the anterior drawer present. We trialed with the 12 and this gave appropriate anterior posterior stability at 90° with a mm each of medially and lateral opening at 90°. I brought the knee up into hyperflexion and it seemed tight and I felt the quadriceps was limiting our flexion which was only to 120 ° passively and additional quadriceps muscle synovectomy was performed proximally and read trialing the knee flexed to 130 on gravity 135 passively. Lacking full extension an additional mm bone was removed from the distal femur at this time. With the 12 insert, the knee still had a positive bounce but was close to full extension. We had 2 mm of medial opening in extension and 3 mm at 10° of flexion of medial opening. I elected to therefore cut 1 mm bone from the lateral femoral condyle distally converting the distal femoral cut to 6° of anatomic axis valgus. Chamfer cuts revisited and with this the knee came out to full extension with a negative lb. Appropriate stability in all positions with the 12 insert. Lug holes were drilled. We had put the tourniquet down at 95 minutes and at this point the tourniquet was relocated after exsanguination of the limb the bony surfaces thoroughly irrigated and dried after prep of the bone surfaces which were quite dense and sclerotic, with a step drill. There was a cyst also we encountered in the posterior chamfer of the lateral femoral condyle had only a 5 mm opening but probably a 10 mm cavity underneath this which was underneath which would reside under the distal cut surface of the lateral femoral condyle. I elected to bone graft this as filling this with cement would take up a lot of the bone volume of the lateral femoral condyle there. One of the chamfer pieces was irrigated thoroughly with Ancef solution and morselized and packed into the cyst. Bony surfaces were thoroughly irrigated and dried. Using the 2 batches of methylmethacrylate 1 with the gentamicin powder the cement was mixed immediately applied the size 79 vanguard tibial tray and then the size 70 right CR femoral component. Cement was applied the tibial plateau pressurized tibial component fully seated cement applied to the femur the femoral component fully seated the knee brought into extension with a 13 mm 5 and 1 insert for cement pressurization. After cement hardening excess cement was sought for removed and hemostasis was achieved. The 12 insert came just out to full extension with negative bounce with 1 mm lateral opening in extension 2 mm medial opening. Appropriate stability to anterior-posterior drawer all positions gravity flexion to 130 passive 135. Patellar tracking is suboptimal however until a lateral retinacular release was performed. This gave central patellar tracking throughout range of motion. The 12 insert was placed without difficulty locked with a locking pin range of motion stability patellar tracking reconfirmed. Local anesthetic cocktail was injected the periarticular soft tissues. Arthrotomy was closed with 2. Vicryl, 1. Unidirectional barbed Stratafix suture, skin closed with 2 subcutaneous Vicryl 3-0 subcuticular Monocryl and glue. Patient transferred to postop recovery room in stable condition. EBL was 3 heard cc. No known complications. Two additional g of Ancef and 1 g of TXA given time wound closure. [facility] Billing Surgery - Charge Forward: Surgery Billing (Right total knee replacement)
[2024-11-08] MEDS: ACETAMINOPHEN 325 MG TABLET 650 MG PO ×3 (14:10→20:26)
[2024-11-08] MEDS: oxyCODONE HCL (*CRX) 5 MG TAB IR PO ×3 (14:10→20:26)
--- NOTE | 2024-11-08 14:26 | ADMGEN ---
This patient, Roberto Norwood, was admitted to 3 [facility] Surg Room 331-01. Patient/family oriented to hospital policies and general routines including ID bracelet, bed and alarms, visiting hours, pain management, procedures, bathroom and other care routines, personal items, smoking policy, room service/diet, and visiting hours. Information on how to activate the Rapid Response Team has been discussed. Patient/Family are encouraged to report perceived risks to care and to ask questions if they do not understand what they are told or what they should do.
--- NOTE | 2024-11-08 15:13 | P.CONIM_ITS ---
Assessment and Plan Assessment and plan (1) Right knee DJD: Code(s): M17.11 - Unilateral primary osteoarthritis, right knee Status: Acute Assessment and Plan: Status post total right knee arthroplasty by Orthopedics on 11/08/2024 Pain management per Orthopedics Eliquis for VTE Postop antibiotics PT OT eval and treat (2) GERD (gastroesophageal reflux disease): Code(s): K21.9 - Gastro-esophageal reflux disease without esophagitis Status: Acute Assessment and Plan: Continue Pepcid (3) Hypertension: Code(s): I10 - Essential (primary) hypertension Status: Acute Assessment and Plan: Continue Norvasc [facility] Date of Consult Consult date: 11/08/24 Requesting Physician: Gary Nava MD Primary Care Provider: Dario Jennings MD Consult Narrative Reason for consult: Medical management Narrative: Roberto Norwood is a 74 year old male with past medical history of esophageal strictures, gout GERD and hypertension presented to the hospital for a planned right total knee arthroplasty. Patient seen after surgery. Patient is in his bed doing his knee range of motion exercises. He states that his knee feels exactly how is supposed to. And he will do 1 more walk before bed. Patient denies nausea or vomiting. Review of Systems Review of Systems: 12 systems were reviewed and are negativ e except for as per HPI. [facility] Past Medical History Medical History Esophageal stricture History of esophageal dilatation x2 Gout Gastroesophageal reflux disease Neuropathy of left hand Hypertension Surgical History Surgical History History of arthroplasty of left knee History of tonsillectomy History of hand surgery Family History Family History Other Diabetes mellitus Social History Social History Social History: Surrogate medical decision maker: Neelam Norwood, spouse. Code status: Full code. Smoking status: Never smoker Second hand tobacco smoke exposure: No Additional smoking assessment comments: DENIES ANY FORM OF TOBACCO USE Alcohol intake: never Substance use: never Substance use type: does not use Do You Feel Safe in your Home?: Yes Lack of Transportation: No Lack of Food: Never True Current Housing: I Have Housing Concerned About Future Housing: No Difficulty Paying Gas/Electric Bills: No Difficulty Paying for Meds: No Currently Unemployed: No Education: High School Diploma/GED Difficulty w/ Childcare or Family Care: No Living arrangements: with family Additional living arrangements comments: Occupation/Education: occupation 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 Spiritual care concerns: No Meds Home Medications and Allergies Home Medications Medication Instructions Recorded Confirmed Type Daily Multiple For Men 1 tab-cap PO DAILY 09/25/21 11/08/24 History ascorbic acid (vitamin C) 500 mg 500 mg PO BID 09/25/21 11/08/24 History capsule calcium 600 mg (as 1 tablet PO DAILY 09/25/21 11/08/24 History carbonate)-vitamin D3 10 mcg (400 unit) tablet (Calcium with Vitamin D) cyanocobalamin (vitamin B-12) 1,000 mcg PO BID 09/25/21 11/08/24 History 1,000 mcg tablet (Vitamin B-12) magnesium 500 mg tablet 500 mg PO BID 09/25/21 11/08/24 History amlodipine 10 mg tablet 10 mg PO DAILY 02/13/24 11/08/24 History omega-3 fatty acids 500 mg capsule 500 mg PO DAILY 03/19/24 11/08/24 History tadalafil 20 mg tablet 20 mg PO DAILY PRN sexual activity 03/19/24 10/28/24 History famotidine 40 mg tablet 40 mg PO DAILY 06/04/24 11/08/24 History celecoxib 200 mg capsule See Rx Instructions .Route 08/16/24 11/08/24 Rx .COMPLEX #180 caps testosterone cypionate 200 mg/mL 80 mg IM WEEKLY 09/06/24 11/08/24 History intramuscular oil acetaminophen 500 mg tablet 1,000 mg PO Q4H PRN pain 10/25/24 10/28/24 History (Acetaminophen Pain Relief) turmeric root extract 500 mg 500 mg PO DAILY 10/28/24 11/08/24 History capsule Allergies Allergy/AdvReac Type Severity Reaction Status Date / Time ximena Allergy Severe Swelling Verified 11/08/24 06:58 of Lip/Tongue/Throat poison enedelia extract Allergy Intermediate Blister Verified 11/08/24 06:58 hydrochlorothiazide AdvReac Mild gout Verified 11/08/24 06:58 Vital Signs Vital Signs - 24 hr 11/08/24 07:09 11/08/24 12:03 11/08/24 12:15 Temperature 97.6 F 98.6 F Pulse Rate 56 L 70 65 Respiratory Rate 18 12 16 Blood Pressure 148/61 H 122/69 138/69 Pulse Oximetry 98 93 97 Oxygen Delivery Room Air Simple Face Mask Simple Face Mask Oxygen Flow Rate 8 8 11/08/24 12:30 11/08/24 12:45 11/08/24 13:00 Temperature Pulse Rate 60 60 63 Respiratory Rate 15 16 18 Blood Pressure 132/69 132/70 139/74 Pulse Oximetry 97 97 96 Oxygen Delivery Simple Face Mask Simple Face Mask Room Air Oxygen Flow Rate 8 8 11/08/24 13:15 11/08/24 14:11 Temperature Pulse Rate 65 Respiratory Rate 16 Blood Pressure 127/71 Pulse Oximetry 97 Oxygen Delivery Room Air Room Air Oxygen Flow Rate Exam Narrative: General: well appearing, appears stated age. HEENT: normocephalic, atraumatic. Mucous membranes moist. EOMI, PERRLA, bilateral sclera anicteric, no conjunctival injection. Neck supple without JVD, lymphadenopathy, or bruit. Respiratory: clear to ascultation bilaterally. No rales/rhonic/wheezes. Cardiovascular: Regular rate and rhythm, normal S1-S2 upon ascultation. No murmurs, rubs, or clicks. PMI is nondisplaced, capillary refill less than 3 second. Abdomen: Soft, round, no pulsatile masses, nondistended and nontender. No rebound, no guarding. No CVA tenderness, no hepatosplenomegaly. Bowel sounds present to all four quadrants. No high pitch or tinkling sounds, resonant to percussion. Extremities: No cyanosis, clubbing, or edema present. Pulses are palpable 2/2. Right lower extremity surgical dressing clean dry intact Neuro: Alert and orientated x 4. PERRLA. Cranial nerves 2-12 intact without focal deficit. Skin: Warm, dry, and intact, without rash, erythema, or lesion. Psych: pleasant, cooperative, normal speech, normal affect, no hallucinations, no dysarthia Quality VTE Prophylaxis VTE prophylaxis: mechanical ordered and pharmacologic ordered Hospitalist [facility] Advance Care Plan I have confirmed that the patient's Advanced Care Plan is present, code status is documented, or surrogate decision maker is listed in patient medical record.: Yes Medication Reconciliation I have utilized all available resources to obtain, update and review the patients current medications (includes all prescriptions, OTC, herbals, cannabis, and nutritional supplements).: Yes
[2024-11-08] MEDS: ASCORBIC ACID 500 MG TABLET PO (16:19)
[2024-11-08] MEDS: SENNA/DOCUSATE SODIUM TABLET 2 TAB PO (16:19)
[2024-11-08] MEDS: CYANOCOBALAMIN 1,000 MCG TABLET 1000 MCG PO (16:19)
[2024-11-08] MEDS: VANCOMYCIN 1,000 MG/NS 250 ML 1,000 MG/250 ML BAG 250 MG IVPB (19:34)
[2024-11-09] MEDS: oxyCODONE HCL (*CRX) 5 MG TAB IR PO ×3 (01:51→09:35)
[2024-11-09] MEDS: ACETAMINOPHEN 325 MG TABLET 650 MG PO ×3 (01:51→09:34)
[2024-11-09 03:08] VITALS: BP 131/66; PULSE 52; RESP 20; TEMP 36.6; O2SAT 98
[2024-11-09] MEDS: VANCOMYCIN 1,000 MG/NS 250 ML 1,000 MG/250 ML BAG 250 MG IVPB (06:04)
[2024-11-09 06:32] LABS: Basophils Percent Auto 0.1 % (0.2-1.2); Hematocrit 31.2 % (42.0-52.0); Hemoglobin 10.1 g/dL (14.0-18.0); Immature Granulocyte Percent A 0.6 % (0-0.5); Lymphocytes Absolute Auto 0.87 K/mm3 (0.9-3.2); Lymphocytes Percent Auto 5.4 % (18.3-44.2); Mean Corpuscular HGB Conc 32.4 g/dl (32-36); Mean Corpuscular Hemoglobin 28.9 pg (26-34); Mean Corpuscular Volume 89.1 fl (80-100); Mean Platelet Volume 9.6 fl (7.4-10.4); Monocytes Absolute Auto 1.6 K/mm3 (0.1-0.6); Monocytes Percent Auto 10.1 % (2.6-8.5); Neutrophils Absolute Auto 13.5 K/mm3 (1.3-6.7); Neutrophils Percent Auto 83.8 % (45.5-73.1); Platelet Count Result 185 k/mm3 (150-375); Red Cell Distribution Width 13.7 % (11.5-14.5); White Blood Count 16.1 K/mm3 (4.5-10.0)
[2024-11-09 06:42] LABS: Anion Gap 8 mmol/L (4-12); Blood Urea Nitrogen 21 mg/dL (9-20); Calcium 8.3 mg/dL (8.4-10.2); Carbon Dioxide 23 mmol/L (22-30); Chloride 105 mmol/L (98-107); Estimated CRCL calculation 84 ml/min; Estimated Glomerular Filt Rate > 60; Glucose 119 mg/dL (65-110); Potassium 3.9 mmol/L (3.4-5.0); Sodium 136 mmol/L (137-145)
[2024-11-09 07:08] VITALS: BP 128/59; PULSE 54; RESP 20; TEMP 36.1; O2SAT 94
--- NOTE | 2024-11-09 07:18 | P.PNOP_ITS ---
Subjective Subjective Date/Time Seen: 11/09/24 07:18 Interval history: Postop day 1 patient is alert. He is afebrile vital signs are stable. Morning labs noted. Overall patient's pain is well controlled. He was up walking yesterday been to the restroom urinating well overnight. Has [id number] swelling knee dressing is intact and dry. Will plan have the patient work with therapy today and then be discharged to home late this morning or early after noon Objective Data Vital Signs Vital Signs: Vital Signs - 24 hr 11/08/24 12:03 11/08/24 12:15 11/08/24 12:30 Temperature 98.6 F Pulse Rate 70 65 60 Respiratory Rate 12 16 15 Blood Pressure 122/69 138/69 132/69 Pulse Oximetry 93 97 97 Oxygen Delivery Simple Face Mask Simple Face Mask Simple Face Mask Oxygen Flow Rate 8 8 8 11/08/24 12:45 11/08/24 13:00 11/08/24 13:15 Temperature Pulse Rate 60 63 65 Respiratory Rate 16 18 16 Blood Pressure 132/70 139/74 127/71 Pulse Oximetry 97 96 97 Oxygen Delivery Simple Face Mask Room Air Room Air Oxygen Flow Rate 8 11/08/24 13:23 11/08/24 13:38 11/08/24 13:38 Temperature 97.2 F L 97 F L Pulse Rate 57 L 66 Respiratory Rate 18 18 Blood Pressure 136/64 127/66 Pulse Oximetry 97 95 Oxygen Delivery Room Air Oxygen Flow Rate 11/08/24 14:08 11/08/24 14:11 11/08/24 15:08 Temperature 97 F L 97 F L Pulse Rate 66 50 L Respiratory Rate 18 18 Blood Pressure 146/70 H 129/78 Pulse Oximetry 96 96 Oxygen Delivery Room Air Oxygen Flow Rate 11/08/24 15:15 11/08/24 19:08 11/08/24 23:08 Temperature 98.4 F 97.8 F Pulse Rate 67 56 L Respiratory Rate 20 20 Blood Pressure 135/74 137/54 L Pulse Oximetry 98 93 Oxygen Delivery Room Air Oxygen Flow Rate 11/09/24 03:08 Temperature 97.9 F Pulse Rate 52 L Respiratory Rate 20 Blood Pressure 131/66 Pulse Oximetry 98 Oxygen Delivery Oxygen Flow Rate Intake/Output Intake/Output: Intake & Output 11/06/24 11/07/24 11/08/24 11/09/24 23:59 23:59 23:59 23:59 Intake Total 2990 600 Output Total 400 Balance 2590 600 Meds/Results Medications: Active Medications Generic Name Dose Route Start Last Admin Trade Name Freq PRN Reason Stop Dose Admin Acetaminophen 650 mg 11/08/24 14:00 11/09/24 06:04 Acetaminophen 325 Mg Tablet PO 650 mg Q4H SEMAJ Administration Amlodipine Besylate 10 mg 11/09/24 09:00 Amlodipine Besylate 10 Mg Tablet PO DAILY [facility] Apixaban 2.5 mg 11/09/24 09:00 Apixaban 2.5 Mg Tablet PO 11/20/24 21:01 Q12HR [facility] Ascorbic Acid 500 mg 11/08/24 17:00 11/08/24 16:19 Ascorbic Acid 500 Mg Tablet PO 500 mg BID SEMAJ Administration Calcium Carbonate 500 mg 11/09/24 09:00 Calcium/Vitamin D 500 Mg/5 Mcg (200 I.U.) Tablet PO QAM [facility] Cefdinir 300 mg 11/09/24 21:00 Cefdinir 300 Mg Capsule PO Q12HR [facility] Celecoxib 200 mg 11/09/24 08:00 Celecoxib 200 Mg Capsule PO DAILY@0800 [facility] Cyanocobalamin 1,000 mcg 11/08/24 17:00 11/08/24 16:19 Cyanocobalamin 1,000 Mcg Tablet PO 1,000 mcg BID [facility] Administration Diphenhydramine HCl 25 mg 11/08/24 13:23 Diphenhydramine Hcl Inj 50 Mg/Ml Vial IV PUSH Q6H PRN Itching Famotidine 40 mg 11/09/24 09:00 Famotidine 20 Mg Tablet PO DAILY [facility] Cefazolin Sodium 2 gm in 50 mls @ 100 mls/hr 11/08/24 16:00 11/08/24 23:32 Ancef 2 Gm/D5w 50 Ml IVPB 11/09/24 08:29 100 mls/hr Q8H SEMAJ Administration Vancomycin HCl 1,000 mg in 250 mls @ 250 mls/hr 11/08/24 19:00 11/09/24 06:04 Vancomycin 1,000 Mg/Ns 250 Ml IVPB 11/09/24 07:59 250 mls/hr Q12H SEMAJ Administration Morphine Sulfate 2 mg 11/08/24 13:23 Morphine Sulfate (*Crx) 2 Mg/Ml Inj IV PUSH Q2H PRN Breakthrough Pain Rated 4-6 or NPO Naloxone HCl 0.1 mg 11/08/24 13:23 Naloxone Hcl 0.4 Mg/Ml Vial IV PUSH Q2M PRN Opiate Reversal Ondansetron HCl 4 mg 11/08/24 13:23 Ondansetron Inj 4 Mg/2 Ml Vial IV PUSH Q4H PRN Nausea And Vomiting Oxycodone HCl 5 mg 11/08/24 13:23 11/09/24 06:05 Oxycodone Hcl (*Crx) 5 Mg Tab Ir PO 5 mg Q4HR SEMAJ Administration Oxycodone HCl 5 mg 11/08/24 13:23 Oxycodone Hcl (*Crx) 5 Mg Tab Ir PO Q4H PRN Pain Rated 7-10 Polyethylene Glycol 17 gm 11/09/24 09:00 Polyethylene Glycol 3350 17 Gm Powd.Pack PO QAM SEMAJ Senna/Docusate Sodium 2 tab 11/08/24 17:00 11/08/24 16:19 Senna/Docusate Sodium Tablet PO 2 tab BID SEMAJ Administration Radiology Results: ITS Impressions Knee X-Ray 11/08/24 12:24 IMPRESSION: 1. Right total knee arthroplasty, negative for postoperative purposes. Labs Labs: Laboratory Results - last 24 hr 11/09/24 06:22 WBC 16.1 H RBC 3.50 L Hgb 10.1 L D Hct 31.2 L MCV 89.1 MCH 28.9 MCHC 32.4 RDW 13.7 Plt Count 185 MPV 9.6 Immature Gran % (Auto) 0.6 H Neut % (Auto) 83.8 H Lymph % (Auto) 5.4 L Johnston % (Auto) 10.1 H Eos % (Auto) 0.0 Baso % (Auto) 0.1 L Lymph # (Auto) 0.87 L Johnston # (Auto) 1.6 H Eos # (Auto) 0.0 Baso # (Auto) 0.0 Abs Immat Gran (auto) 0.10 H Absolute Neuts (auto) 13.5 H Absolute Nucleated RBC 0.000 Nucleated RBC % 0.0 Sodium 136 L Potassium 3.9 Chloride 105 Carbon Dioxide 23 Anion Gap 8 BUN 21 H Creatinine 0.64 L Estim Creat Clear Calc 84 Estimated GFR > 60 Glucose 119 H Calcium 8.3 L
[2024-11-09] MEDS: CYANOCOBALAMIN 1,000 MCG TABLET 1000 MCG PO (09:34)
[2024-11-09] MEDS: polyethylene glycoL 3350 17 GM POWD.PACK PO (09:34)
[2024-11-09] MEDS: FAMOTIDINE 20 MG TABLET 40 MG PO (09:34)
[2024-11-09] MEDS: CALCIUM/VITAMIN D 500 MG/5 MCG (200 I.U.) TABLET PO (09:34)
[2024-11-09] MEDS: ceFAZolin 2 GM/D5W 50 ML 2 GM/50 ML BAG IVPB (09:34)
[2024-11-09] MEDS: CELECOXIB 200 MG CAPSULE PO (09:35)
[2024-11-09] MEDS: amLODIPine BESYLATE 10 MG TABLET PO (09:35)
[2024-11-09] MEDS: ASCORBIC ACID 500 MG TABLET PO (09:35)
[2024-11-09] MEDS: SENNA/DOCUSATE SODIUM TABLET 2 TAB PO (09:35)
[2024-11-09] MEDS: APIXABAN 2.5 MG TABLET PO (09:35)
--- NOTE | 2024-11-09 11:55 | P.CONIM_ITS ---
Assessment and Plan Assessment and plan (1) Right knee DJD: Code(s): M17.11 - Unilateral primary osteoarthritis, right knee Status: Acute Assessment and Plan: Status post total right knee arthroplasty by Orthopedics on 11/08/2024 Pain management per Orthopedics Eliquis for VTE Postop antibiotics PT OT eval and treat (2) GERD (gastroesophageal reflux disease): Code(s): K21.9 - Gastro-esophageal reflux disease without esophagitis Status: Acute Assessment and Plan: Continue Pepcid (3) Hypertension: Code(s): I10 - Essential (primary) hypertension Status: Acute Assessment and Plan: Continue Norvasc [facility] Date of Consult Consult date: 11/09/24 Requesting Physician: REGGIE MunozC Primary Care Provider: Dario Jennings MD Consult Narrative Narrative: Roberto Norwood is a 74 year old male with past medical history of esophageal strictures, gout GERD and hypertension presented to the hospital for a planned right total knee arthroplasty. POD 1. Pt denies any CP, SOB, n/v, abdominal pain. Afebrile with stable vital signs. Pain is under control, managed by ortho team. Worked w/ PT/OT this morning, improving overall. Pt up for discharge this morning/afternoon. Will followup with Ortho in the out pt setting. No other changes or concerns at this time. Review of Systems 2 Review of Systems: 12 systems were reviewed and are negativ e except for as per HPI. [facility] Past Medical History Medical History Esophageal stricture History of esophageal dilatation x2 Gout Gastroesophageal reflux disease Neuropathy of left hand Hypertension Surgical History Surgical History History of arthroplasty of left knee History of tonsillectomy History of hand surgery Family History Family History Other Diabetes mellitus Social History Social History Social History: Surrogate medical decision maker: Neelam Norwood, spouse. Code status: Full code. Smoking status: Never smoker Second hand tobacco smoke exposure: No Additional smoking assessment comments: DENIES ANY FORM OF TOBACCO USE Alcohol intake: never Substance use: never Substance use type: does not use Do You Feel Safe in your Home?: Yes Lack of Transportation: No Lack of Food: Never True Current Housing: I Have Housing Concerned About Future Housing: No Difficulty Paying Gas/Electric Bills: No Difficulty Paying for Meds: No Currently Unemployed: No Education: High School Diploma/GED Difficulty w/ Childcare or Family Care: No Living arrangements: with family Additional living arrangements comments: Occupation/Education: occupation 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 Spiritual care concerns: No Meds Home Medications and Allergies Home Medications Medication Instructions Recorded Confirmed Type Daily Multiple For Men 1 tab-cap PO DAILY 09/25/21 11/08/24 History ascorbic acid (vitamin C) 500 mg 500 mg PO BID 09/25/21 11/08/24 History capsule calcium 600 mg (as 1 tablet PO DAILY 09/25/21 11/08/24 History carbonate)-vitamin D3 10 mcg (400 unit) tablet (Calcium with Vitamin D) cyanocobalamin (vitamin B-12) 1,000 mcg PO BID 09/25/21 11/08/24 History 1,000 mcg tablet (Vitamin B-12) magnesium 500 mg tablet 500 mg PO BID 09/25/21 11/08/24 History amlodipine 10 mg tablet 10 mg PO DAILY 02/13/24 11/08/24 History omega-3 fatty acids 500 mg capsule 500 mg PO DAILY 03/19/24 11/08/24 History tadalafil 20 mg tablet 20 mg PO DAILY PRN sexual activity 03/19/24 10/28/24 History famotidine 40 mg tablet 40 mg PO DAILY 06/04/24 11/08/24 History testosterone cypionate 200 mg/mL 80 mg IM WEEKLY 09/06/24 11/08/24 History intramuscular oil turmeric root extract 500 mg 500 mg PO DAILY 10/28/24 11/08/24 History capsule acetaminophen 325 mg tablet 650 mg (2 x 325 mg) PO Q4H #90 tabs 11/09/24 Rx apixaban 2.5 mg tablet (Eliquis) 2.5 mg PO Q12HR #28 tabs 11/09/24 Rx cefdinir 300 mg capsule 300 mg PO Q12HR #14 caps 11/09/24 Rx celecoxib 200 mg capsule (Celebrex) 200 mg PO DAILY@0800 #60 caps 11/09/24 Rx oxycodone 5 mg tablet 5 mg PO Q4H PRN Pain #40 tabs 11/09/24 Rx polyethylene glycol 3350 17 gram 17 g PO QAM #30 ea 11/09/24 Rx oral powder packet (Miralax) sennosides 8.6 mg-docusate sodium 2 tab PO BID #60 tabs 11/09/24 Rx 50 mg tablet (Senokot-S) Allergies Allergy/AdvReac Type Severity Reaction Status Date / Time ximena Allergy Severe Swelling Verified 11/08/24 06:58 of Lip/Tongue/Throat poison enedelia extract Allergy Intermediate Blister Verified 11/08/24 06:58 hydrochlorothiazide AdvReac Mild gout Verified 11/08/24 06:58 Vital Signs Vital Signs - 24 hr 11/08/24 12:03 11/08/24 12:15 11/08/24 12:30 Temperature 98.6 F Pulse Rate 70 65 60 Respiratory Rate 12 16 15 Blood Pressure 122/69 138/69 132/69 Pulse Oximetry 93 97 97 Oxygen Delivery Simple Face Mask Simple Face Mask Simple Face Mask Oxygen Flow Rate 8 8 8 11/08/24 12:45 11/08/24 13:00 11/08/24 13:15 Temperature Pulse Rate 60 63 65 Respiratory Rate 16 18 16 Blood Pressure 132/70 139/74 127/71 Pulse Oximetry 97 96 97 Oxygen Delivery Simple Face Mask Room Air Room Air Oxygen Flow Rate 8 11/08/24 13:23 11/08/24 13:38 11/08/24 13:38 Temperature 97.2 F L 97 F L Pulse Rate 57 L 66 Respiratory Rate 18 18 Blood Pressure 136/64 127/66 Pulse Oximetry 97 95 Oxygen Delivery Room Air Oxygen Flow Rate 11/08/24 14:08 11/08/24 14:11 11/08/24 15:08 Temperature 97 F L 97 F L Pulse Rate 66 50 L Respiratory Rate 18 18 Blood Pressure 146/70 H 129/78 Pulse Oximetry 96 96 Oxygen Delivery Room Air Oxygen Flow Rate 11/08/24 15:15 11/08/24 19:08 11/08/24 23:08 Temperature 98.4 F 97.8 F Pulse Rate 67 56 L Respiratory Rate 20 20 Blood Pressure 135/74 137/54 L Pulse Oximetry 98 93 Oxygen Delivery Room Air Oxygen Flow Rate 11/09/24 03:08 11/09/24 07:08 11/09/24 08:00 Temperature 97.9 F 97 F L Pulse Rate 52 L 54 L Respiratory Rate 20 20 Blood Pressure 131/66 128/59 L Pulse Oximetry 98 94 Oxygen Delivery Room Air Oxygen Flow Rate Exam 2 Narrative: General: well appearing, appears stated age. HEENT: normocephalic, atraumatic. Mucous membranes moist. EOMI, PERRLA, bilateral sclera anicteric, no conjunctival injection. Neck supple without JVD, lymphadenopathy, or bruit. Respiratory: clear to ascultation bilaterally. No rales/rhonic/wheezes. Cardiovascular: Regular rate and rhythm, normal S1-S2 upon ascultation. No murmurs, rubs, or clicks. PMI is nondisplaced, capillary refill less than 3 second. Abdomen: Soft, round, no pulsatile masses, nondistended and nontender. No rebound, no guarding. No CVA tenderness, no hepatosplenomegaly. Bowel sounds present to all four quadrants. No high pitch or tinkling sounds, resonant to percussion. Extremities: No cyanosis, clubbing, or edema present. Pulses are palpable 2/2. Right lower extremity surgical dressing clean dry intact Neuro: Alert and orientated x 4. PERRLA. Cranial nerves 2-12 intact without focal deficit. Skin: Warm, dry, and intact, without rash, erythema, or lesion. Psych: pleasant, cooperative, normal speech, normal affect, no hallucinations, no dysarthia Results Labs 11/09/24 06:22 11/09/24 06:22 Labs: Short CBC 11/09/24 Range/Units 06:22 WBC 16.1 H (4.5-10.0) K/mm3 Hgb 10.1 L D (14.0-18.0) g/dL Hct 31.2 L (42.0-52.0) % Plt Count 185 (150-375) k/mm3 [facility] 11/09/24 06:22 Sodium 136 L Potassium 3.9 Chloride 105 Carbon Dioxide 23 BUN 21 H Creatinine 0.64 L Glucose 119 H Calcium 8.3 L Quality VTE Prophylaxis VTE prophylaxis: mechanical ordered and pharmacologic ordered
== END 2024-11-09 13:25 | disposition home or self-care (01) ==
LOC: ANHSURGERY 05:57 → ANH3MEDSUR 13:24
PROVIDERS: Orthopaedic Surgery; Physician Assistant Surgical; PCP Family Medicine; Visit Provider Physician Assistant
PROC: (CPT 27447; principal; 2024-11-08 07:30)
DX: M17.11 Unilateral primary osteoarthritis, right knee (principal); M22.41 Chondromalacia patellae, right knee; M25.761 Osteophyte, right knee; K21.9 Gastro-esophageal reflux disease without esophagitis; I10 Essential (primary) hypertension; Z79.1 Long term (current) use of non-steroidal anti-inflammatories (NSAID); Z98.890 Other specified postprocedural states; Z87.19 Personal history of other diseases of the digestive system
CPT/HCPCS: 27447; 36415; 73560; 80048; 85025; 97110; 97116; 97161; 97165; 97530; 97535; A9270; C1713; C1776; J0171; J0690; J1100; J1171; J1885; J2003; J2270; J2405; J2704; J2795; J3370; J7120

== ENCOUNTER 2024-12-13 09:00 | Outpatient (RCR) | payer MEDICARE, SELFPAY ==
--- NOTE | 2024-11-11 10:58 | OPREHPOC ---
Outpatient Therapy Plan of Care This is a Multidisciplinary Plan of Care that may contain components documented by all disciplines (PT, OT, and ST.) PT Problem 1 PT Problem #1 Knowledge Deficit PT Goal 1 Goal / Goal Update [place] with HEP Target Visit 4 PT Goal 2 Goal / Goal Update No pain greater than 2/10 Target Visit 8 PT Problem 2 PT Problem #2 Impaired Range of Motion PT Goal 1 Goal / Goal Update 1. Achieve terminal right knee extension ROM 2. Achieve 120 degrees right knee flexion for full functional motion Target Visit 10 PT Problem 3 PT Problem #3 Impaired Gait PT Goal 1 Goal / Goal Update 1. Ambulate with even stride length bilaterally independent of AD Target Visit 10
--- NOTE | 2024-11-11 10:58 | PTOPEVAL1 ---
Assessment and note entered by Lyndon Ly, PT Evaluation Information Assessment Status Evaluation Diagnosis S/P R TKA ICD-10 Condition Codes (PT) Pain in right knee M25.561 Onset 11/08/24 Subjective Information Reports that overall he feels he is doing well. Nerve block wore off and he is a little sore but doing better than he felt he did prior to his last TKA. He is not sleeping well right now due to pain as he cannot sleep on his side. He is taking pain meds before bed. Taking pain meds as needed. Reported Pain Level Pain Score 1: Self Report Assessment PT Clinical Summary Patient presents with knee swelling, loss of ROM, and altered gait following total knee arthroplasty . Patient will benefit forms killed therapy to address these deficits for improved mobility and functionality and successful surgical outcome. Plan of Care Interventions Gait Training,Neuro Re-education,Therapeutic Activities,Therapeutic Exercise PT Services Indicated Yes Treatment Frequency and 2x/week for 10 visits Duration These treatments will address the objective and functional deficits as defined above. The patient will be advanced safely and appropriately in order for the patient to progress towards his/her prior level of function. Additional exercises will be introduced and as well as a comprehensive home exercise program upon discharge, if needed, ?to ensure carryover of functional gains achieved in the clinic. This treatment plan has been reviewed and agreement upon by the patient.
--- NOTE | 2024-12-13 09:25 | OPREHPOC ---
Outpatient Therapy Plan of Care This is a Multidisciplinary Plan of Care that may contain components documented by all disciplines (PT, OT, and ST.) PT Problem 1 PT Problem #1 Knowledge Deficit PT Goal 1 Goal / Goal Update [place] with HEP Target Visit 4 Progress Met PT Goal 2 Goal / Goal Update No pain greater than 2/10 Target Visit 8 Progress Met PT Problem 2 PT Problem #2 Impaired Range of Motion PT Goal 1 Goal / Goal Update 1. Achieve terminal right knee extension ROM 2. Achieve 120 degrees right knee flexion for full functional motion Target Visit 10 Progress Met PT Problem 3 PT Problem #3 Impaired Gait PT Goal 1 Goal / Goal Update 1. Ambulate with even stride length bilaterally independent of AD Target Visit 10 Progress Met
--- NOTE | 2024-12-13 09:25 | PTOPDC ---
Assessment and note entered by Lyndon Ly, PT Evaluation Information Assessment Status Discharge Diagnosis S/P R TKA ICD-10 Condition Codes (PT) Pain in right knee M25.561 Onset 11/08/24 Subjective Information Reports that he feels he is doing great. No notable issues to this date and is independent without pain. Feels he is ready for discharge at this time. Reported Pain Level Pain Score 0: Self Report Assessment PT Clinical Summary Patient has met all goals for therapy at this time and is suitable for discharge to [facility]. No concerns with discharge at this time. Plan of Care PT Services Indicated Yes
== END 2024-12-13 11:26 | disposition home or self-care (01) ==
LOC: ANHPT 09:00
PROVIDERS: PCP Family Medicine; Visit Provider Orthopaedic Surgery
DX: Z47.1 Aftercare following joint replacement surgery (principal); M17.11 Unilateral primary osteoarthritis, right knee; Z96.651 Presence of right artificial knee joint
CPT/HCPCS: 97110; 97161; 97530

== ENCOUNTER 2025-03-30 02:49 | Day surgery (SDC) | payer MEDICARE, SELFPAY ==
[2025-03-17 14:39] VITALS: BMI 25.1
--- NOTE | 2025-03-29 14:26 | WPDANESEPPF ---
Anes - Initial Pre Proc Eval Procedure: Operation Date: 03/30/25 07:30 Proposed Procedures p Esophagogastroduodenoscopy - Juan Nowak MD Date/Time: 03/29/25 14:26 Surgeon: Juan Nowak MD Pre Op Diagnosis: Gastro-esophageal reflux disease with esophagitis, Patient Data Age: 75 Gender: M Height: 1.75 m Weight: 77.2 kg Allergies Allergy/AdvReac Type Severity Reaction Status Date / Time ximena Allergy Severe Swelling Verified 03/30/25 06:25 of Lip/Tongue/Throat poison enedelia extract Allergy Intermediate Blister Verified 03/30/25 06:25 hydrochlorothiazide AdvReac Mild gout Verified 03/30/25 06:25 Home Medications ?Medication ?Instructions ?Recorded ?Confirmed ?Type Daily Multiple For Men 1 tab-cap PO DAILY 09/25/21 03/30/25 History ascorbic acid (vitamin C) 500 mg 500 mg PO BID 09/25/21 03/30/25 History capsule calcium 600 mg (as 1 tablet PO DAILY 09/25/21 03/30/25 History carbonate)-vitamin D3 10 mcg (400 unit) tablet (Calcium with Vitamin D) cyanocobalamin (vitamin B-12) 1,000 mcg PO BID 09/25/21 03/30/25 History 1,000 mcg tablet (Vitamin B-12) magnesium 500 mg tablet 250 mg PO BID 09/25/21 03/30/25 History amlodipine 10 mg tablet 10 mg PO DAILY 02/13/24 03/30/25 History omega-3 fatty acids 500 mg capsule 1,000 mg PO DAILY 03/19/24 03/17/25 History tadalafil 20 mg tablet 20 mg PO DAILY PRN sexual activity 03/19/24 03/17/25 History testosterone cypionate 200 mg/mL 40 mg IM WEEKLY 11/22/24 03/17/25 History intramuscular oil turmeric root extract 500 mg 500 mg PO BID 11/22/24 03/30/25 History capsule celecoxib 200 mg capsule (Celebrex) 200 mg PO DAILY 12/20/24 03/30/25 History pantoprazole 20 mg tablet,delayed 20 mg PO QAM 12/20/24 03/17/25 History release Patient hx anesthesia problems: none Family hx anesthesia problems: none Results Review: All pre-operative results and documents have been reviewed as part of the pre-operative evaluation. [facility] Past Medical History Medical History (Updated 03/30/25 @ 07:04 by Christiano Martinez DO) Esophageal stricture History of esophageal dilatation x2 Gout Gastroesophageal reflux disease Neuropathy of left hand Hypertension Surgical History Surgical History History of arthroplasty of left knee History of tonsillectomy History of hand surgery Family History Family History Sibling Pancreatic cancer Other Diabetes mellitus Social History Social History Social History: Surrogate medical decision maker: Neelam Norwood, spouse. Code status: Full code. Smoking status: Never smoker Second hand tobacco smoke exposure: No Additional smoking assessment comments: DENIES ANY FORM OF TOBACCO USE Alcohol intake: never Substance use: never Substance use type: does not use Do You Feel Safe in your Home?: Yes Lack of Transportation: No Lack of Food: Never True Current Housing: I Have Housing Concerned About Future Housing: No Difficulty Paying Gas/Electric Bills: No Difficulty Paying for Meds: No Currently Unemployed: No Education: High School Diploma/GED Difficulty w/ Childcare or Family Care: No Living arrangements: with family Additional living arrangements comments: Occupation/Education: occupation 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 Informed Consent: The patient's anesthetic plan and its attendant risks and benefits were discussed with the patient/family/POA. Questions were solicited and answers provided to the satisfaction of the patient/family/POA.
[2025-03-30 06:28] VITALS: BP 150/81; PULSE 48; RESP 16; TEMP 36.1; O2SAT 99; BMI 28.3
[2025-03-30] MEDS: LACTATED RINGERS 1,000 ML 150 ML IV CONT (06:34)
[2025-03-30] MEDS: SIMETHICONE ORAL SUSPENSION 20 MG/0.3 ML 30 ML BOTTLE 1.8 ML PO (06:35)
--- NOTE | 2025-03-30 07:35 | PM.IMHP ---
H&P: HPI History of Present Illness Date/Time: 03/30/25 07:35 Chief Complaint: GERD Narrative: in September this year and endoscopy revealed a large hiatal hernia and severe, grade D esophagitis with a stricture, that was dilated with the 18-18 balloon. He did well for a few weeks but is having dysphagia again. He is now for EGD and possible repeat dilatation. Review of Systems Review of Systems: All systems reviewed & are unremarkable except as noted in HPI and below PMFSH Past Medical History Medical History (Updated 03/30/25 @ 07:04 by Christiano Martinez DO) Esophageal stricture History of esophageal dilatation x2 Gout Gastroesophageal reflux disease Neuropathy of left hand Hypertension Surgical History Surgical History History of arthroplasty of left knee History of tonsillectomy History of hand surgery Family History Family History Sibling Pancreatic cancer Other Diabetes mellitus Social History Social History Social History: Surrogate medical decision maker: Neelam Conradtz, spouse. Code status: Full code. Smoking status: Never smoker Second hand tobacco smoke exposure: No Additional smoking assessment comments: DENIES ANY FORM OF TOBACCO USE Alcohol intake: never Substance use: never Substance use type: does not use Do You Feel Safe in your Home?: Yes Lack of Transportation: No Lack of Food: Never True Current Housing: I Have Housing Concerned About Future Housing: No Difficulty Paying Gas/Electric Bills: No Difficulty Paying for Meds: No Currently Unemployed: No Education: High School Diploma/GED Difficulty w/ Childcare or Family Care: No Living arrangements: with family Additional living arrangements comments: Occupation/Education: occupation 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 Spiritual care concerns: No Meds Home Medications and Allergies Home Medications ?Medication ?Instructions ?Recorded ?Confirmed ?Type Daily Multiple For Men 1 tab-cap PO DAILY 09/25/21 03/30/25 History ascorbic acid (vitamin C) 500 mg 500 mg PO BID 09/25/21 03/30/25 History capsule calcium 600 mg (as 1 tablet PO DAILY 09/25/21 03/30/25 History carbonate)-vitamin D3 10 mcg (400 unit) tablet (Calcium with Vitamin D) cyanocobalamin (vitamin B-12) 1,000 mcg PO BID 09/25/21 03/30/25 History 1,000 mcg tablet (Vitamin B-12) magnesium 500 mg tablet 250 mg PO BID 09/25/21 03/30/25 History amlodipine 10 mg tablet 10 mg PO DAILY 02/13/24 03/30/25 History omega-3 fatty acids 500 mg capsule 1,000 mg PO DAILY 03/19/24 03/17/25 History tadalafil 20 mg tablet 20 mg PO DAILY PRN sexual activity 03/19/24 03/17/25 History testosterone cypionate 200 mg/mL 40 mg IM WEEKLY 11/22/24 03/17/25 History intramuscular oil turmeric root extract 500 mg 500 mg PO BID 11/22/24 03/30/25 History capsule celecoxib 200 mg capsule (Celebrex) 200 mg PO DAILY 12/20/24 03/30/25 History pantoprazole 20 mg tablet,delayed 20 mg PO QAM 12/20/24 03/17/25 History release Allergies Allergy/AdvReac Type Severity Reaction Status Date / Time ximena Allergy Severe Swelling Verified 03/30/25 06:25 of Lip/Tongue/Throat poison enedelia extract Allergy Intermediate Blister Verified 03/30/25 06:25 hydrochlorothiazide AdvReac Mild gout Verified 03/30/25 06:25 Vital Signs Vital Signs - 24 hr 03/30/25 06:28 Temperature 97.0 F L Pulse Rate 48 L Respiratory Rate 16 Blood Pressure 150/81 H Pulse Oximetry 99 Oxygen Delivery Room Air Exam Const: General: cooperative and healthy appearing Resp: Effort & Inspection: normal respiratory effort and able to speak in complete sentences Auscultation: clear to auscultation bilaterally Cardio: Rate: regular rate Rhythm: regular rhythm GI: Inspection: normal to inspection GI Palp: No No hepatosplenomegaly present Auscultation: normal bowel sounds Rectal Exam: deferred Skin: General skin exam: normal color Psych: Appearance: grossly normal Mental Status: mental status grossly normal Assessment and Plan Assessment and plan (1) Dysphagia: Code(s): R13.10 - Dysphagia, unspecified Status: Acute Assessment and Plan: The patient is deemed a good candidate for the procedure. Consent signed. Will proceed.
[2025-03-30 07:48] VITALS: BP 108/63; PULSE 52; RESP 16; O2SAT 97
[2025-03-30 07:58] VITALS: BP 102/66; PULSE 52; RESP 18; O2SAT 95
[2025-03-30 08:08] VITALS: BP 124/83; PULSE 51; RESP 21; O2SAT 95
== END 2025-03-30 08:34 | disposition home or self-care (01) ==
PROVIDERS: PCP Family Medicine; Referring Provider Internal Medicine Gastroenterology; Visit Provider Internal Medicine Gastroenterology
PROC: 0DJ08ZZ Inspection of Upper Intestinal Tract, Via Natural or Artificial Opening Endoscopic (ICD-10-PCS; CPT 43249; principal; 2025-03-30 07:30)
DX: K21.00 Gastro-esophageal reflux disease with esophagitis, without bleeding (principal); K22.2 Esophageal obstruction; K44.9 Diaphragmatic hernia without obstruction or gangrene; I10 Essential (primary) hypertension; Z79.1 Long term (current) use of non-steroidal anti-inflammatories (NSAID); Z98.890 Other specified postprocedural states; Z87.19 Personal history of other diseases of the digestive system; Z80.0 Family history of malignant neoplasm of digestive organs
CPT/HCPCS: 43249; C1726; J2704; J7120

== ENCOUNTER 2025-04-18 09:18 | Outpatient (CLI) | payer MEDICARE, SELFPAY ==
[2025-04-18 09:31] LABS: Hematocrit 42.6 % (42.0-52.0); Hemoglobin 13.3 g/dL (14.0-18.0); Immature Granulocyte Percent A 0.6 % (0-0.5); Lymphocytes Absolute Auto 0.80 K/mm3 (0.9-3.2); Mean Corpuscular HGB Conc 31.2 g/dl (32-36); Mean Corpuscular Hemoglobin 24.8 pg (26-34); Mean Corpuscular Volume 79.5 fl (80-100); Nucleated Red Blood Cells Absolute Auto 0.000 K/mm3 (0.0-0.012); Nucleated Red Blood Cells Perc 0.0 % (0.0-0.2); Platelet Count Result 293 k/mm3 (150-375); Red Blood Count 5.36 M/mm3 (4.6-6.20); White Blood Count 6.5 K/mm3 (4.5-10.0)
--- OUTSIDE RECORDS SUMMARY | 2025-04-18 10:03 | XMS_ITS | Clinical Summary ---
Author Organization [facility] Bossman Balderaslana Address [address] [place] [address] Care Team Providers Care Dev Ops Engineer Name Role Phone Unavailable Primary Care Provider [...] by intramuscular injection twice weekly. 3 Active [place] 1-[id number]-Xi ytosterol 500 mg-500 mcg -1 mg-12.5 mg Capsule Take by mouth. Activ e calcium as CARBONATE-michelle min D3 500 mg-10 mcg (400 unit) tablet Take 1 Tablet by mouth daily. Active MAGNESIUM CITRATE ORAL Take by mouth daily. Active Active Problems No known active problems Encounters Date Type Department Care Team Description 04/12/2025 External Device Data [facility] ABSTRACTION Provider, Abstract 03/08/2025 External Device Data [facility] ABSTRACTION Provider, Abstract 03/08/2025 External Device Data [facility] ABSTRACTION Provider, Abstract 01/25/2025 External Device Data [facility] ABSTRACTION Provider, Abstract from Last 3 Months Family History Medical [...] 8:41 AM CDT Height 172.7 cm (5' 8) 09/22/2024 10:56 AM CDT Body Mass Index 28.43 09/22/2024 10:56 AM CDT Plan of Treatment Upcoming Encounters Date Type Department Care Team (Late st Contact Info) Description 04/22/2025 8:30 AM CDT Office Visit [facility] Oncology and Hematology - [place] [address] [facility] [address] [place] [address] Black Cisneros MD [address] [place] [address] Health Maintenance Due Date Last Done Comments DTAP/TDAP/TD VACCINES (1 - Tdap) 1969 COLORECTAL SCREENING 1995 Colorectal Cancer Screening 1995 FIT-DNA Q 3 years 1995 FIT/FOBT Q 1 year 1995 Flex Sig/CT Colonography Q 5 years 1995 PNEUMOCOCCAL VACCINE 50+ YEARS (1 of 1 - PCV) 02/20/20 00 ZOSTER VACCINE (1 of 2) 02/20/2000 Medicare [place]) Prev entative Visit/Annual Wellness Visit 06/23/2024 INFLUENZA VACCINE (#1) 2025 RSV VACCINE (60+ or ) (1 - 1-dose 75+ series) 2025 Insurance [facility]
--- OUTSIDE RECORDS SUMMARY | 2025-04-18 10:03 | XMS_ITS | Patient Health Record ---
Author Organization [facility] Address [address] [place], [place] [id number] Care Team Providers Care Air Pollution Auditor Name Role Phone LETICIA VÁSQUEZ Unavailable [phone] Dario Jennings Unavailable Unavailable Reason For Referral No Information Social History Social History Additional Details Category Social Info Options Details Migrated Social History Migrated Social History Smoking Status : Never used tobacco , History of tobacco use : Plan Of Treatment No Information Insurance Providers Payer Name Payer Address Payer Phone Subscriber Number Group Number Insured Name Patient Relationship to Insured Coverage Start Date Coverage End Date [id number] [place] [address] [phone] [id number] REBECA AMANDA Self - patient is the insured
--- OUTSIDE RECORDS SUMMARY | 2025-04-18 10:04 | XMS_ITS | Clinical Summary ---
Author Organization [facility] [address] Address [address] [place] [address] Care Team Providers Care Area Operations Manager Name Role Phone Dario Jennings MD Primary Care Provider [phone] Allergies No known active allergies Medications meloxicam [...] 5 mg by mouth daily Active om 2-cst-mko-B12- IT-D5-bdokskd 500 mg-500 mcg -1 mg-12.5 mg capsule [...] 8:16 AM CDT Height 180.3 cm (5' 11) 09/17/2022 8:16 AM CDT Body Mass Index [...] Visit 65+ 2015 Covid-19 Vaccine ( season) 02/21/202504/2021, 10/10/2020 Influenza Vaccine (#1) 2025 Insurance [employer] PPO Care Teams Area Operations Manager Relationship Specialty Start Date End Date Dario Jennings MD PCP - General Family Medicine 09/10/22
[2025-04-18 11:01] LABS: Anion Gap 9 mmol/L (4-12); Blood Urea Nitrogen 25 mg/dL (9-20); Calcium 9.2 mg/dL (8.4-10.2); Carbon Dioxide 28 mmol/L (22-30); Chloride 102 mmol/L (98-107); Estimated Glomerular Filt Rate > 60; Glucose 109 mg/dL (65-110); Potassium 4.2 mmol/L (3.4-5.0); Sodium 139 mmol/L (137-145)
== END 2025-04-18 09:19 | disposition home or self-care (01) ==
LOC: ANHLAB 09:18
PROVIDERS: PCP Family Medicine; Visit Provider Internal Medicine Hematology & Oncology
DX: D72.829 Elevated white blood cell count, unspecified (principal)
CPT/HCPCS: 36415; 80048; 85025

== ENCOUNTER 2025-05-17 14:25 | Outpatient (CLI) | payer MEDICARE, SELFPAY ==
[2025-05-17 14:47] LABS: Hematocrit 42.2 % (42.0-52.0); Hemoglobin 13.5 g/dL (14.0-18.0); Immature Granulocyte Percent A 0.9 % (0-0.5); Lymphocytes Absolute Auto 0.89 K/mm3 (0.9-3.2); Mean Corpuscular HGB Conc 32.0 g/dl (32-36); Mean Corpuscular Hemoglobin 25.1 pg (26-34); Mean Corpuscular Volume 78.4 fl (80-100); Nucleated Red Blood Cells Absolute Auto 0.000 K/mm3 (0.0-0.012); Nucleated Red Blood Cells Perc 0.0 % (0.0-0.2); Platelet Count Result 252 k/mm3 (150-375); Red Blood Count 5.38 M/mm3 (4.6-6.20); White Blood Count 8.0 K/mm3 (4.5-10.0)
[2025-05-17 16:16] LABS: Alanine Aminotransferase 21 U/L (6-50); Albumin Level 4.4 g/dL (3.5-5.1); Alkaline Phosphatase 65 U/L (38-126); Anion Gap 8 mmol/L (4-12); Aspartate Amino Transferase 26 U/L (17-59); Bilirubin,Total 0.5 mg/dL (0.2-1.3); Blood Urea Nitrogen 20 mg/dL (9-20); Calcium 9.2 mg/dL (8.4-10.2); Carbon Dioxide 25 mmol/L (22-30); Chloride 103 mmol/L (98-107); Cholesterol 117 mg/dL (0-200); Estimated Glomerular Filt Rate > 60; Glucose 124 mg/dL (65-110); HDL Direct 27 mg/dL; Sodium 136 mmol/L (137-145); Total Protein 7.4 g/dL (6.3-8.2); Triglycerides 143 mg/dL (<150); Uric Acid 5.9 mg/dL (3.5-8.5)
--- OUTSIDE RECORDS SUMMARY | 2025-05-17 16:18 | XMS_ITS | Clinical Summary ---
Author Organization [facility] [address] [email or web address] Address [address] [place] [address] Care Team Providers Care Zinc Plater Name Role Phone Dario Jennings MD Primary Care Provider [phone] Allergies No known active allergies Medications meloxicam [...] 5 mg by mouth daily Active om 7-[id number]-[id number]-B12- [id number]-vmzfwfn 500 mg-500 mcg -1 mg-12.5 mg capsule [...] Insurance [employer]ICE MEDICARE PPO Care Teams Zinc Plater Relationship Specialty Start Date End Date Dario Jennings MD PCP - General Family Medicine 09/10/22
--- OUTSIDE RECORDS SUMMARY | 2025-05-17 16:18 | XMS_ITS | Clinical Summary ---
Author Organization [facility] Address [address] [place] [address] Care Team Providers Care Diamond Expert Name Role Phone Dario Jennings MD Primary Care Provider [phone] Allergies Active Allergy Reactions Criticality Noted Date [...] (500 mcg total) by mouth daily. Active [id number]-Omeg a 3-Phytosterols (BP VIT 3) 1 MG [...] Sex Assigned at Male 07/15/2024 10:06 AM COORDINATOR MINING [employer]ODUCTS Legal Sex Male 9:52 AM CDT Gender Identity Not on file Sexual Orientation Not on file Last Filed Vital Signs Vital Sign Reading Time Taken Comments Blood Pressure 119/72 07/15/2024 10:07 AM COORDINATOR MINING [employer]ODUCTS Pulse 72 07/15/2024 10:07 AM COORDINATOR MINING [employer]ODUCTS Temperature 37.4 C (99.3 F) 07/15/2024 10:07 AM COORDINATOR MINING [employer]ODUCTS Respiratory Rate - - Oxygen Saturation 97% 05/27/2024 8:59 AM COORDINATOR MINING PRODUCTS Inhaled Oxygen Concentration - - Weight 84.2 kg (185 lb 9.6 oz) 07/15/2024 10:07 AM COORDINATOR MINING [employer]ODUCTS Height 170.2 cm (5' 7) 07/15/2024 10:07 AM COORDINATOR MINING [employer]ODUCTS Body Mass Index 29.07 07/15/2024 10:07 AM COORDINATOR MINING PRODUCTS Plan of Treatment Health Maintenance Due Date Last Done Comments Colorectal Cancer Screening Colonoscopy (10 Years) 1950 Hepatitis C 02/20/1968 DTaP, Tdap and Td Vaccines ( 1 - Tdap) 1969 Pneumococcal Vaccine: 50+ Years (1 of 1 - PCV) 02/20/2000 Zoster Vaccines (1 of 2) 02/20/2000 Annual Medicare Wellness Visit 2015 PHQ-2 (Physician [place]) 06/23/2024 RSV Immunization or 60+ Years (1 - 1-dose 75+ series) 2025 COVID-19 Vaccine (2024-2 6 season) 2025 10/31/2020, 10/10/2020 Influenza Adult (#1) 2025 Hepatitis A Vaccines Aged Out No long er eligible based on patient's age to complete this topic Meningococcal B Vaccine Aged Out No l onger eligible based on patient's age to complete this topic Meningococcal Vaccine Aged Out No eze everett eligible based on patient's age to complete this topic RSV Immunizations Under 20 Months Aged Out No longer eligible b ased on patient's age to complete this topic Insurance HUMANA MEDICARE Care Teams Diamond Expert Relationship Specialty Start Date End Date Daroi Jennings MD [address] [place] [address] PCP - General FAMILY PRACTICE 01/08/24
--- OUTSIDE RECORDS SUMMARY | 2025-05-17 16:18 | XMS_ITS | Patient Health Record ---
Author Organization [facility] Address [address] [place], [place] [id number] Care Team Providers Care Threshing Machine Operator Name Role Phone LETICIA VÁSQUEZ Unavailable [phone] Dario Jennings Unavailable Unavailable Reason For Referral [...] Insured Coverage Start Date Coverage End Date [id number] [place] [address] [id number] REBECA AMANDA Self - patient is the insured
--- OUTSIDE RECORDS SUMMARY | 2025-05-17 16:18 | XMS_ITS | Clinical Summary ---
Author Organization [facility] Address [address] [place] [address] Care Team Providers Care Collection Coordinator Name Role Phone Unavailable Primary Care Provider Unavailabl e Allergies No known active allergies Medications multivitamins- minerals-lutei n (Multivitamin 50 Plus) Tablet Take 1 Tablet by mouth daily. Active VITAMIN C, ASCORBATE CALCIUM, ORAL daily. Active cyanocobalamin (VITAMIN B-12) 500 mcg tablet Take 500 mcg by mouth daily. Active amLODIPine (NORVASC) 10 mg tablet Take 10 mg by mouth daily. 04/14/20 24 Active celecoxib (CeleBREX) 200 mg capsule Take 200 mg by mouth daily. Active testosterone cypionate (DEPO-TESTOSTE DELISA) 200 mg/mL Oil Inject 200 mg by intramuscular injection twice weekly. 07/13/19 Active Clark [id number]-[id number] ytosterol 500 mg-500 mcg -1 mg-12.5 mg Capsule Take by mouth. Activ e calcium as CARBONATE-michelle min D3 500 mg-10 mcg (400 unit) tablet Take 1 Tablet by mouth daily. Active MAGNESIUM CITRATE ORAL Take by mouth daily. Active omeprazole (PriLOSEC) 40 mg Capsule, Delayed Release(E.C.) Take 1 Capsule by mouth 2 times daily. 04/01/20 25 Active famotidine (PEPCID) 40 mg tablet Take 40 mg by mouth daily. 04/14/20 24 025 Discontinu ed(Alterna te therapy prescribed ) Active Problems No known active problems Encounters Date Type Department Care Team Description 04/22/2025 8:30 AM CDT Office Visit [facility] Oncology and Hematology - [place] [address] [place] [address] Black Cisneros MD Anemia, chronic disease (Primary Dx) 04/19/2025 Orders Only [facility] Oncology and Hematology [place] [address] [place] [address] Black Cisneros MD 04/12/2025 External Device Data STL ABSTRACTION Provider, [...] Sign Reading Time Taken Comments Blood Pressure 138/68 04/22/2025 8:28 AM CDT Pulse 61 04/22/2025 8:28 AM CDT Temperature 36.4 C (97.5 F) 04/22/2025 8:28 AM CDT Respiratory Rate 16 04/22/2025 8:28 AM CDT Oxygen Saturation 95% 04/22/2025 8:28 AM CDT Inhaled Oxygen Concentration - - Weight 86.4 kg (190 lb 6.4 oz) 04/22/2025 8:28 A M CDT Height 172.7 cm (5' 8) 09/22/2024 10:56 AM CDT Body Mass Index 28.95 09/22/2024 10:56 AM CDT Plan of Treatment Upcoming Encounters Date Type Department Care Team (Late st Contact Info) Description 10/24/2025 10:15 AM CDT Office Visit [facility] Oncology and Hematology [place] [address] [place] [address] Black Cisneros MD [address] [facility] [address] [place] [address] Health Maintenance Due Date Last Done Comments DTAP/TDAP/TD VACCINES (1 - Tdap) 1969 COLORECTAL SCREENING 1995 Colorectal Cancer Screening 1995 FIT-DNA Q 3 years 1995 FIT/FOBT Q 1 year 1995 Flex Sig/CT Colonography Q 5 years 1995 PNEUMOCOCCAL VACCINE 50+ YEARS (1 of 1 - PCV) 02/20/20 00 ZOSTER VACCINE (1 of 2) 02/20/2000 INFLUENZA VACCINE (#1) 2025 RSV VACCINE (60+ or ) (1 - 1-dose 75+ series) 2025 Procedures Procedure Name Priority Date/Time Associated Diagnosis Comments BASIC METABOLIC PANEL Routine 04/18/2025 11:38 AM CDT from Last 3 Months Results * BASIC METABOLIC PANEL (04/18/2025 11:38 AM CDT) Blood us Black Cisneros MD CHEMISTRY ORDERABLES Final Resu lt from Last 3 Months Insurance
[2025-05-17 16:19] LABS: Iron 64 ug/dL (49-181)
[2025-05-17 16:27] LABS: Transferrin 283 mg/dL (206-381)
[2025-05-17 16:31] LABS: Percent Iron Saturation 17 % (20-50)
[2025-05-17 16:38] LABS: Free T3 3.92 pg/mL (2.45-5.93)
[2025-05-17 16:53] LABS: Prostate Specific Antigen 4.5 ng/mL (< OR = 4.0); Thyroid Stimulating Hormone 0.838 uIU/mL (0.465-4.680)
[2025-05-17 17:11] LABS: Ferritin 20.60 ng/mL (11.1-264)
[2025-05-17 17:34] LABS: Potassium 4.0 mmol/L (3.4-5.0)
[2025-05-17 17:39] LABS: Vitamin B12 > 1000.0 pg/mL (239-931)
== END 2025-05-17 14:26 | disposition home or self-care (01) ==
LOC: ANHLAB 14:26
PROVIDERS: PCP Family Medicine; Visit Provider Nurse Practitioner Family
DX: D64.9 Anemia, unspecified (principal); R97.20 Elevated prostate specific antigen [PSA]; M10.9 Gout, unspecified; R53.83 Other fatigue; R53.1 Weakness; Z13.220 Encounter for screening for lipoid disorders; Z13.1 Encounter for screening for diabetes mellitus
CPT/HCPCS: 36415; 80053; 80061; 82306; 82607; 82728; 82746; 83540; 83550; 84153; 84436; 84443; 84466; 84481; 84550; 85025

== ENCOUNTER 2025-05-17 15:19 | Outpatient (CLI) | payer MEDICARE, SELFPAY ==
--- NOTE | 2025-05-17 | ECG_ITS ---
Test Date: 2025-05-17 15:40:41 Measurements Intervals [place] Rate: 59 P: 86 KS: 215 QRS: 46 QRSD: 127 T: 22 QT: 413 QTc: 410 Interpretive Statements SINUS BRADYCARDIA WITH SINUS ARRHYTHMIA WITH FIRST DEGREE AV BLOCK INCOMPLETE RIGHT BUNDLE BRANCH BLOCK ABNORMAL ECG No previous ECG available for comparison Electronically Signed On 05-17-2025 17:36:59 GROUP SEGMENT CONSULTANT by Rob Connor M.D.
--- OUTSIDE RECORDS SUMMARY | 2025-05-17 17:02 | XMS_ITS | Clinical Summary ---
Author Organization [facility] Address [address] [place] [address] Care Team Providers Care Blacktop Spreader Name Role Phone Unavailable Primary Care Provider [...] by intramuscular injection twice weekly. 07/13/19 Active Bruno [id number]-AF-[id number]-[id number] ytosterol 500 mg-500 mcg -1 mg-12.5 mg [...] Description 04/22/2025 8:30 AM CDT Office Visit [facility] Oncology and Hematology - [place] [address] [place] [address] Black Cisneros MD Anemia, chronic disease (Primary Dx) 04/19/2025 Orders Only [facility] Oncology and Hematology [place] [address] [place] [address] Black Cisneros MD 04/12/2025 External [...] Description 10/24/2025 10:15 AM CDT Office Visit [facility] Oncology and Hematology [place] [address] [place] [address] Black Cisneros MD [address] [facility] [address] [place] [address] Health Maintenance Due Date Last [...]
--- OUTSIDE RECORDS SUMMARY | 2025-05-17 17:02 | XMS_ITS | Clinical Summary ---
Author Organization [facility] Address [address] [place] [address] Care Team Providers Care Ship Superintendent Name Role Phone Dario Jennings MD Primary Care Provider [phone] Allergies Active Allergy Reactions Criticality Noted Date [...] (500 mcg total) by mouth daily. Active CL-I0-Y59-Omeg a 3-Phytosterols (BP VIT 3) 1 MG [...] Sex Assigned at Male 07/15/2024 10:06 AM BEEF BREAKER Legal Sex Male 9:52 AM CDT Gender Identity Not on file Sexual Orientation Not on file Last Filed Vital Signs Vital Sign Reading Time Taken Comments Blood Pressure 119/72 07/15/2024 10:07 AM BEEF BREAKER Pulse 72 07/15/2024 10:07 AM BEEF BREAKER Temperature 37.4 C (99.3 F) 07/15/2024 10:07 AM BEEF BREAKER Respiratory Rate - - Oxygen Saturation 97% 05/27/2024 8:59 AM BEEF BREAKER Inhaled Oxygen Concentration - - Weight 84.2 kg (185 lb 9.6 oz) 07/15/2024 10:07 AM BEEF BREAKER Height 170.2 cm (5' 7) 07/15/2024 10:07 AM BEEF BREAKER Body Mass Index 29.07 07/15/2024 10:07 AM BEEF BREAKER Plan of Treatment Health Maintenance Due Date Last Done Comments Colorectal Cancer Screening Colonoscopy (10 Years) 1950 Hepatitis C 02/20/1968 DTaP, Tdap and Td Vaccines ( 1 - Tdap) 1969 Pneumococcal Vaccine: 50+ Years (1 of 1 - PCV) 02/20/2000 Zoster Vaccines (1 of 2) 02/20/2000 Annual Medicare Wellness Visit 2015 PHQ-2 (Physician [place]) 06/23/2024 RSV Immunization or 60+ Years (1 [...] this topic Insurance HU[employer]NA MEDICARE Care Teams Ship Superintendent Relationship Specialty Start Date End Date Dario Jennings MD [address] [place] [address] PCP - General FAMILY PRACTICE 01/08/24
--- OUTSIDE RECORDS SUMMARY | 2025-05-17 17:03 | XMS_ITS | Clinical Summary ---
Author Organization [facility] [address] [employer] Address [address] [place] [address] Care Team Providers Care Merchandise Collector Name Role Phone Dario Jennings MD Primary Care Provider [phone] Allergies No known active allergies Medications meloxicam [...] 5 mg by mouth daily Active om 0-rnl-ghz-B12- IR-U3-fmfvpau 500 mg-500 mcg -1 mg-12.5 mg capsule [...] Insurance [employer] CHOICE MEDICARE PPO Care Teams Merchandise Collector Relationship Specialty Start Date End Date Dario Jennings MD PCP - General Family Medicine 09/10/22
== END 2025-05-17 15:20 | disposition home or self-care (01) ==
LOC: ANHCARD 15:23
PROVIDERS: PCP Family Medicine; Visit Provider Nurse Practitioner Family
DX: R00.1 Bradycardia, unspecified (principal); I49.9 Cardiac arrhythmia, unspecified; I45.10 Unspecified right bundle-branch block; I44.0 Atrioventricular block, first degree
CPT/HCPCS: 93005

== ENCOUNTER 2025-06-02 01:38 | Day surgery (SDC) | payer MEDICARE, SELFPAY ==
[2025-05-11 12:46] VITALS: BMI 26.5
--- OUTSIDE RECORDS SUMMARY | 2025-06-02 01:41 | XMS_ITS | Clinical Summary ---
Author Organization [facility] j[facility] Yo Address [address] [place] [address] Care Team Providers Care Resources Representative Name Role Phone Unavailable Primary Care Provider [...] by intramuscular injection twice weekly. 3 Active [place] [id number]-[id number]-XK-[id number]-Uu ytosterol 500 mg-500 mcg -1 mg-12.5 mg Capsule Take by mouth. Activ e calcium as CARBONATE-michelle min D3 500 mg-10 mcg (400 unit) tablet Take 1 Tablet by mouth daily. Active MAGNESIUM CITRATE ORAL Take by mouth daily. Active omeprazole (PriLOSEC) 40 mg Capsule, Delayed Release(E.C.) Take 1 Capsule by mouth 2 times daily. 5 Active Active Problems No known active problems Encounters Date Type Department Care Team Description 04/22/2025 8:30 AM CDT Office Visit [facility] Oncology and Hematology - [place] [address] [place] [address] Black Cisneros MD Anemia, chronic disease (Primary Dx) 04/19/2025 Orders Only [facility] Oncology and Hematology [place] [address] [place] [address] Black Cisneros MD 04/12/2025 External Device Data [...] Description 10/24/2025 10:15 AM CDT Office Visit [facility] Oncology and Hematology - [place] [address] [facility] [address] [address] [place] [phone] Black Cisneros MD [address] [facility] [address] [place] [address] Health Maintenance Due Date Last [...] METABOLIC PANEL (04/18/2025 11:38 AM CDT) Blood Black Cisneros MD CHEMISTRY ORDERABLES Final Resu lt from Last 3 Months Insurance
--- OUTSIDE RECORDS SUMMARY | 2025-06-02 01:41 | XMS_ITS | Patient Health Record ---
Author Organization [facility] Address [address] [place], [place] [address] Care Team Providers Care Machine Taper Name Role Phone LETICIA VÁSQUEZ Unavailable [phone] Dario Jennings Unavailable Unavailable Reason For Referral [...] Insured Coverage Start Date Coverage End Date [address] [place] [address] [id number] REBECA AMANDA Self - patient is the insured
--- OUTSIDE RECORDS SUMMARY | 2025-06-02 01:41 | XMS_ITS | Clinical Summary ---
Author Organization [facility] [address] [employer] Address [address] [place] [address] Care Team Providers Care Direct Care Worker Name Role Phone Dario Jennings MD Primary Care Provider [phone] Allergies No known active allergies Medications meloxicam [...] 5 mg by mouth daily Active om 0-aah-ywd-B12- SN-K8-echzzmj 500 mg-500 mcg -1 mg-12.5 mg capsule Take by mouth Active calcium carbonate-michelel min D3 (Calcium 500 + D) 1,250 [...] Insurance [employer] CHOICE MEDICARE PPO Care Teams Direct Care Worker Relationship Specialty Start Date End Date Dario Jennings MD PCP - General Family Medicine 09/10/22
[2025-06-02 11:51] VITALS: BP 152/83; PULSE 51; RESP 16; TEMP 36.7; O2SAT 99
[2025-06-02 11:52] VITALS: BMI 26.6
--- NOTE | 2025-06-02 11:57 | WPDANESEPPF ---
Anes - Initial Pre Proc Eval Procedure: Operation Date: 06/02/25 13:00 Proposed Procedures p EGD & Screening Colonoscopy - Juan Nowak MD Date/Time: 06/02/25 11:57 Surgeon: Juan Nowak MD Pre Op Diagnosis: Personal history of other diseases of the digestiv Patient Data Age: 75 Gender: M Height: 1.78 m Weight: 84.2 kg Last Vital Signs Temp 98.1 F 06/02/25 11:51 Pulse 51 L 06/02/25 11:51 Resp 16 06/02/25 11:51 BP 152/83 H 06/02/25 11:51 Pulse Ox 99 06/02/25 11:51 O2 Del Method Room Air 06/02/25 11:51 Allergies Allergy/AdvReac Type Severity Reaction Status Date / Time ximena Allergy Severe Swelling Verified 06/02/25 11:47 of Lip/Tongue/Throat poison enedelia extract Allergy Intermediate Blister Verified 06/02/25 11:47 hydrochlorothiazide AdvReac Mild gout Verified 06/02/25 11:47 Home Medications ?Medication ?Instructions ?Recorded ?Confirmed ?Type Daily Multiple For Men 1 tab-cap PO DAILY 09/25/21 06/02/25 History ascorbic acid (vitamin C) 500 mg 500 mg PO BID 09/25/21 06/02/25 History capsule calcium 600 mg (as 1 tablet PO DAILY 09/25/21 06/02/25 History carbonate)-vitamin D3 10 mcg (400 unit) tablet (Calcium with Vitamin D) cyanocobalamin (vitamin B-12) 1,000 mcg PO BID 09/25/21 06/02/25 History 1,000 mcg tablet (Vitamin B-12) magnesium 500 mg tablet 250 mg PO BID 09/25/21 06/02/25 History amlodipine 10 mg tablet 10 mg PO DAILY 02/13/24 06/02/25 History omega-3 fatty acids 500 mg capsule 1,000 mg PO DAILY 03/19/24 06/02/25 History tadalafil 20 mg tablet 20 mg PO DAILY PRN sexual activity 03/19/24 05/11/25 History testosterone cypionate 200 mg/mL 40 mg IM WEEKLY 11/22/24 05/11/25 History intramuscular oil turmeric root extract 500 mg 500 mg PO BID 11/22/24 06/02/25 History capsule celecoxib 200 mg capsule (Celebrex) 200 mg PO DAILY 12/20/24 06/02/25 History omeprazole 40 mg capsule,delayed 40 mg PO BID 30 days #60 caps 03/30/25 06/02/25 Rx release Patient hx anesthesia problems: none Family hx anesthesia problems: none Results Review: All pre-operative results and documents have been reviewed as part of the pre-operative evaluation. [facility] Past Medical History Medical History (Updated 03/30/25 @ 07:04 by Christiano Martinez DO) Esophageal stricture History of esophageal dilatation x2 Gout Gastroesophageal reflux disease Neuropathy of left hand Hypertension Surgical History Surgical History History of arthroplasty of left knee History of tonsillectomy History of hand surgery Family History Family History Sibling Pancreatic cancer Other Diabetes mellitus Social History Social History Social History: Surrogate medical decision maker: Neelam Norwood, spouse. Code status: Full code. Smoking status: Never smoker Second hand tobacco smoke exposure: No Additional smoking assessment comments: DENIES ANY FORM OF TOBACCO USE Alcohol intake: never Substance use: never Substance use type: does not use Lack of Transportation: No Lack of Food: Never True Current Housing: I Have Housing Concerned About Future Housing: No Difficulty Paying Gas/Electric Bills: No Difficulty Paying for Meds: No Currently Unemployed: No Education: High School Diploma/GED Difficulty w/ Childcare or Family Care: No Living arrangements: with family Additional living arrangements comments: Occupation/Education: occupation 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 Informed Consent: The patient's anesthetic plan and its attendant risks and benefits were discussed with the patient/family/POA. Questions were solicited and answers provided to the satisfaction of the patient/family/POA.
[2025-06-02] MEDS: LACTATED RINGERS 1,000 ML 150 ML IV CONT (12:06)
--- NOTE | 2025-06-02 12:06 | PM.IMHP2 ---
H&P: HPI History of Present Illness Date/Time: 06/02/25 12:06 Chief Complaint: dysphagia -screening colonoscopy Narrative: The patient has a history of severe esophagitis and peptic strictures. His last EGD was in March finding a severe esophagitis and a stricture which was dilated with a 12-15 balloon. In addition, he is referred for a screening colonoscopy. Review of Systems Review of Systems: All systems reviewed & are unremarkable except as noted in HPI and below PMFSH Past Medical History Medical History (Updated 06/02/25 @ 12:08 by Juan Nowak MD) Esophageal stricture History of esophageal dilatation x2 Gout Gastroesophageal reflux disease Neuropathy of left hand Hypertension Surgical History Surgical History History of arthroplasty of left knee History of tonsillectomy History of hand surgery Family History Family History Sibling Pancreatic cancer Other Diabetes mellitus Social History Social History Social History: Surrogate medical decision maker: Neelam Norwood, spouse. Code status: Full code. Smoking status: Never smoker Second hand tobacco smoke exposure: No Additional smoking assessment comments: DENIES ANY FORM OF TOBACCO USE Alcohol intake: never Substance use: never Substance use type: does not use Lack of Transportation: No Lack of Food: Never True Current Housing: I Have Housing Concerned About Future Housing: No Difficulty Paying Gas/Electric Bills: No Difficulty Paying for Meds: No Currently Unemployed: No Education: High School Diploma/GED Difficulty w/ Childcare or Family Care: No Living arrangements: with family Additional living arrangements comments: Occupation/Education: occupation 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 Spiritual care concerns: No Meds Home Medications and Allergies Home Medications ?Medication ?Instructions ?Recorded ?Confirmed ?Type Daily Multiple For Men 1 tab-cap PO DAILY 09/25/21 06/02/25 History ascorbic acid (vitamin C) 500 mg 500 mg PO BID 09/25/21 06/02/25 History capsule calcium 600 mg (as 1 tablet PO DAILY 09/25/21 06/02/25 History carbonate)-vitamin D3 10 mcg (400 unit) tablet (Calcium with Vitamin D) cyanocobalamin (vitamin B-12) 1,000 mcg PO BID 09/25/21 06/02/25 History 1,000 mcg tablet (Vitamin B-12) magnesium 500 mg tablet 250 mg PO BID 09/25/21 06/02/25 History amlodipine 10 mg tablet 10 mg PO DAILY 02/13/24 06/02/25 History omega-3 fatty acids 500 mg capsule 1,000 mg PO DAILY 03/19/24 06/02/25 History tadalafil 20 mg tablet 20 mg PO DAILY PRN sexual activity 03/19/24 05/11/25 History testosterone cypionate 200 mg/mL 40 mg IM WEEKLY 11/22/24 05/11/25 History intramuscular oil turmeric root extract 500 mg 500 mg PO BID 11/22/24 06/02/25 History capsule celecoxib 200 mg capsule (Celebrex) 200 mg PO DAILY 12/20/24 06/02/25 History omeprazole 40 mg capsule,delayed 40 mg PO BID 30 days #60 caps 03/30/25 06/02/25 Rx release Allergies Allergy/AdvReac Type Severity Reaction Status Date / Time ximena Allergy Severe Swelling Verified 06/02/25 11:47 of Lip/Tongue/Throat poison enedelia extract Allergy Intermediate Blister Verified 06/02/25 11:47 hydrochlorothiazide AdvReac Mild gout Verified 06/02/25 11:47 Vital Signs Vital Signs - 24 hr 06/02/25 11:51 Temperature 98.1 F Pulse Rate 51 L Respiratory Rate 16 Blood Pressure 152/83 H Pulse Oximetry 99 Oxygen Delivery Room Air Exam Const: General: cooperative and healthy appearing Resp: Effort & Inspection: normal respiratory effort and able to speak in complete sentences Auscultation: clear to auscultation bilaterally Cardio: Rate: regular rate Rhythm: regular rhythm GI: Inspection: normal to inspection GI Palp: No No hepatosplenomegaly present Auscultation: normal bowel sounds Rectal Exam: deferred Skin: General skin exam: normal color Psych: Appearance: grossly normal Mental Status: mental status grossly normal Assessment and Plan Assessment and plan (1) Dysphagia: Code(s): R13.10 - Dysphagia, unspecified Status: Acute Assessment and Plan: The patient is deemed a good candidate for the procedure. Consent signed. Will proceed. (2) Encounter for screening colonoscopy: Code(s): Z12.11 - Encounter for screening for malignant neoplasm of colon Status: Acute Assessment and Plan: The patient is deemed a good candidate for the procedures. Consent signed. Will proceed. Prior Studies I have reviewed the following patient records and this information was taken into consideration when formulating the assessment and plan.: previous labs, previous ER visits, previous hospitalizations and previous clinic visits
[2025-06-02] MEDS: SIMETHICONE ORAL SUSPENSION 20 MG/0.3 ML 30 ML BOTTLE 1.8 ML PO (12:08)
--- NOTE | 2025-06-02 12:22 | SUR.OPER ---
EGD: End 1216, COLON: start 1222
[2025-06-02 12:37] VITALS: BP 115/62; PULSE 52; RESP 20; O2SAT 98
[2025-06-02 12:47] VITALS: BP 107/60; PULSE 54; RESP 18; O2SAT 98
[2025-06-02 12:57] VITALS: BP 115/55; PULSE 52; RESP 18; O2SAT 99
== END 2025-06-02 13:12 | disposition home or self-care (01) ==
PROVIDERS: PCP Family Medicine; Referring Provider Internal Medicine Gastroenterology; Visit Provider Internal Medicine Gastroenterology
PROC: 0DJ08ZZ Inspection of Upper Intestinal Tract, Via Natural or Artificial Opening Endoscopic (ICD-10-PCS; CPT 45378; principal; 2025-06-02 13:00)
DX: Z12.11 Encounter for screening for malignant neoplasm of colon (principal); K64.8 Other hemorrhoids; K57.30 Diverticulosis of large intestine without perforation or abscess without bleeding; K21.00 Gastro-esophageal reflux disease with esophagitis, without bleeding; K44.9 Diaphragmatic hernia without obstruction or gangrene; K29.70 Gastritis, unspecified, without bleeding; I10 Essential (primary) hypertension; G62.9 Polyneuropathy, unspecified; Z79.1 Long term (current) use of non-steroidal anti-inflammatories (NSAID); Z98.890 Other specified postprocedural states; Z87.19 Personal history of other diseases of the digestive system; Z80.0 Family history of malignant neoplasm of digestive organs
CPT/HCPCS: 43235; G0105; J2003; J2704; J7120